=== PATIENT | female | born 1955 | race Caucasian/White ===

== ENCOUNTER → 2017-03-09 | Outpatient (CLI) | payer BC ==
[~2017-03-09] MED LIST: PRLSR20 PO; VIACTIV PO; VITA400C15 PO; [UNRECOGNIZED DRUG - OTHER] PO
[2017-03-09 13:15] LABS: BASO % 0.4 %; BASO ABS # 0.02 K/uL (0-0.2); COMPLETE YES; EOS % 1.6 %; IG% 0.2 %; LYMPH % 37.8 %; LYMPH ABS # 2.07 K/uL (1.2-3.4); MEAN CELL VOLUME 80.7 fL (80-100); MEAN CORPUSCULAR HEMOGLOBIN 26.1 pg (25-34); MEAN CORPUSCULAR HGB CONC 32.3 g/dl (32-36); MEAN PLATELET VOLUME 10.7 fL (7.4-10.4); MONO % 5.7 %; NEUT % 54.3 %; PLATELET COUNT 242 K/uL (130-400); RED BLOOD COUNT 4.83 M/uL (4.2-5.4); WHITE BLOOD COUNT 5.48 K/uL (4.8-10.8)
[2017-03-09 13:53] LABS: CHOLESTEROL/HDL RATIO 3.3; THYROID STIMULATING HORMONE 1.28 uIu/ml (0.300-4.500)
== END | disposition home or self-care (01) ==
LOC: C.LABMFLN 09:21
PROVIDERS: ATTEND Family Medicine
DX: Z12.31 Encounter for screening mammogram for malignant neoplasm of breast (principal); R68.89 Other general symptoms and signs; R23.8 Other skin changes; M85.80 Other specified disorders of bone density and structure, unspecified site; E78.5 Hyperlipidemia, unspecified

== ENCOUNTER 2020-07-18 14:05 | Inpatient (IN) ==
[2020-07-18] MEDS ORDERED: SODIUM CHLORIDE 0.9% 1000ML 1,000 ML IV ONE (14:14)
[2020-07-18] MEDS ORDERED: CEFEPIME 2,000 MG/20 ML VIAL IV STA (14:14)
--- NOTE | 2020-07-18 14:20 | Emergency Department Note ---
Impression & Plan COVID-19, Hypoxia, Pneumonia ED Provider Note NAME: JORDEN ROBERTS AGE: 65 SEX: F : 1955 ARRIVES VIA: Ambulance INFORMANT: Patient, EMS ED PROVIDER(S): Alvarez Jacques DO CHIEF COMPLAINT: Shortness of breath HPI: Patient is a 65-year-old female who presents the ER for shortness of breath. Symptoms started this past Tuesday. They have been gradually getting worse. She admits to cough, shortness of breath, runny nose and a sore throat from the coughing. Denies any belly pain, nausea, vomiting or diarrhea. No dysuria, urgency or frequency. She admits to fevers. She does get chemotherapy which she takes orally for her multiple myeloma. Fevers have been as high as 102. No other exacerbating or remitting factors. ROS: See above HPI for pertinent positives & negatives. A total of 10 systems reviewed and were otherwise negative. PAST MEDICAL HISTORY:See Below PAST SURGICAL HISTORY:See Below FAMILY HISTORY:See Below SOCIAL HISTORY:See Below HOME MEDICATIONS:See Below ALLERGIES:See Below VITALS:See Below PHYSICAL EXAMINATION: GENERAL: Sitting up in bed, alert, ill-appearing, moderate distress EYE EXAM: normal conjunctiva. OROPHARYNX: Dry mucous membranes NECK: supple, no nuchal rigidity, no adenopathy, non-tender LUNGS: Diminished bilaterally. Normal chest wall mechanics HEART: no murmurs, S1 normal and S2 normal ABDOMEN: abdomen soft, non-tender, normo-active bowel sounds, no masses, no rebound or guarding. UPPER EXTREMITIES: upper extremities are grossly normal. LOWER EXTREMITIES: No pitting edema. Calves are equal bilateral NEURO EXAM: Normal sensorium, cranial nerves II-XII grossly intact, normal speech, no gross weakness of arms, no gross weakness of legs. MEDICAL DECISION MAKING: Patient is a 65-year-old female who presents the ER for shortness of breath and a cough. Symptoms started this past Tuesday. has the same symptoms. IV was established blood work was obtained. She was brought in by EMS and found to be hypoxic. She was on nonrebreather. She switched to an oxygen mask and then moved to high flow as she became hypoxic on the oxy mask. Her work of breathing improved significantly while on high flow. She also has a history of multiple myeloma and is immune compromised and was given IV antibiotics. Labs show no significant leukocytosis or anemia. INR was unremarkable. VBG with a pH of 7.43. BMP with mild hypokalemia. LFTs bilirubin was unremarkable. Troponin detectable but not positive. Pro-Blaise was low. Covid was positive. Chest x-ray with multifocal pneumonia. Given broad-spectrum IV antibiotics as well as IV Decadron discussed with hospitalist admitted for further work-up. Triage Nursing notes reviewed. Prior medical records reviewed Vital Signs: reviewed and remarkable for toxic and tachycardic Differential diagnosis: Differential diagnosis includes etiologies such as sepsis, UTI, pneumonia, metabolic, electrolyte abnormalities, cardiac sources, intracerebral event, toxicologic, neurological, as well as others were entertained. ER treatment provided: See below Diagnostics interpreted by me: ECG: Sinus rhythm rate of 101 Left axis No PVCs T wave inversion V1 through V4 QTC 456 Cardiac Monitoring: An order was placed for continuous cardiac monitoring. The monitor shows a rate of 102 with sinus rhythm. Laboratory studies: As stated above and show below. Imaging studies: Portable AP upright 1 view of the chest shows multifocal pneumonia Consultation(s): Discussed with the hospitalist for further evaluation ED COURSE: Procedures: none Critical Care: I have personally spent 40 minutes of critical care time in the direct management of this patient. This includes bedside care, interpretation of diagnostic studies, and testing, discussion with consultants, patient, and family members, and other required patient management activities. This 40 minutes is in excess of all separately billable procedures. Past Med/Surg History Medical History Allergic rhinitis Annual physical exam Chronic GERD Multinodular goiter Osteoarthritis of left knee Osteopenia Paraproteinemia Surgical History H/O arthroscopic knee surgery History of delivery History of laparoscopy History of tonsillectomy History of tubal ligation Family History Father Arthritis Heart disease Hypotension Vertigo Mother Heart disease Hyperlipidemia Hypertension Denies family history of Ovarian cancer Prostate cancer Breast cancer Colorectal cancer Social History Smoking Status: Never smoker Hx Alcohol Use: Yes Hx Substance Use: No Feels Safe at Home: Yes Allergies Allergies Allergy/AdvReac Type Severity Reaction Status Date / Time diazepam [From Valium] AdvReac Severe Nausea Unverified 07/18/20 15:06 tramadol AdvReac Severe Nausea Unverified 07/18/20 15:06 acetaminophen AdvReac Unknown NAUSEA AND Verified 07/18/20 15:06 VOMITING codeine AdvReac Unknown NAUSEA AND Verified 07/18/20 15:06 VOMITING propoxyphene AdvReac Unknown NAUSEA AND Verified 07/18/20 15:06 VOMITING Sulfa (Sulfonamide AdvReac Unknown NAUSEA AND Verified 07/18/20 15:06 Antibiotics) VOMITING Home Meds Home Medications Medication Instructions Recorded Confirmed fexofenadine 180 mg tablet 180 mg PO QAM PRN tab 05/04/19 07/18/20 fish oil-dha-epa 1,200 mg-144 1 cap PO QAM cap 05/04/19 07/18/20 mg-216 mg capsule fluticasone propionate 50 2 sprays INTRANASAL DAILY #1 gm 05/04/19 07/18/20 mcg/actuation nasal spray,suspension glucosamine HCl 1,500 mg tablet 3,000 mg PO QPM tab 05/04/19 07/18/20 naproxen sodium 220 mg capsule 220 mg PO UD PRN cap 05/04/19 07/18/20 omeprazole magnesium 20 mg 20 mg PO QAM tab 05/04/19 07/18/20 tablet,delayed release red yeast rice 600 mg tablet 600 mg PO BID tab 05/04/19 07/18/20 calcium carbonate-vitamin D3 1 tab PO QAM 07/18/20 07/18/20 [Calcium + D] cholecalciferol (vitamin D3) 1,000 units PO QAM 07/18/20 07/18/20 [Vitamin D3] lenalidomide [Revlimid] 25 mg PO QDL 07/18/20 07/18/20 Previous Rx's Medication Instructions Recorded epinephrine 0.3 mg/0.3 mL See Rx Instructions .ROUTE 01/17/20 injection, auto-injector .COMPLEX #2 ea Results & Data (ED) Vital Signs Vital Signs - 24 hr 07/18/20 14:14 07/18/20 14:15 07/18/20 14:19 Temperature 37.7 C H Temperature Source Oral Pulse Rate 104 H Pulse Rate [Right Finger] Pulse Rate from SpO2 Sensor Respiratory Rate 24 Respiratory Effort / Characteristics Spontaneous Respiratory Depth Shallow Respiratory Pattern Rapid/Shallow Blood Pressure 143/80 H Blood Pressure [Left Arm] Blood Pressure Mean 101 Blood Pressure Mean [Left Arm] Blood Pressure Position Sitting Blood Pressure Position [Left Arm] Pulse Oximetry 76 L 76 L 76 L Oxygen Delivery Method Room Air Room Air Room Air Oxygen Flow Rate Fraction of Inspired Oxygen Sepsis Recent Fever Within 48 Hours Yes Sepsis New/Unexplained Change in Mental Status N/A Sepsis Action Taken by Nursing Physician Notified 07/18/20 14:29 07/18/20 14:44 07/18/20 14:47 Temperature Temperature Source Pulse Rate 101 H 102 H Pulse Rate [Right Finger] 105 H Pulse Rate from SpO2 Sensor 102 H 102 H Respiratory Rate 24 34 H 34 H Respiratory Effort / Characteristics Spontaneous Respiratory Depth Shallow Respiratory Pattern Rapid/Shallow Blood Pressure 124/80 Blood Pressure [Left Arm] 124/80 Blood Pressure Mean 102 Blood Pressure Mean [Left Arm] 94 Blood Pressure Position Blood Pressure Position [Left Arm] Sitting Pulse Oximetry 13 L 88 L 92 Oxygen Delivery Method Oxymask Oxygen Flow Rate 15 Fraction of Inspired Oxygen Sepsis Recent Fever Within 48 Hours Sepsis New/Unexplained Change in Mental Status Sepsis Action Taken by Nursing 07/18/20 15:00 07/18/20 15:01 07/18/20 15:15 Temperature Temperature Source Pulse Rate 106 H 102 H Pulse Rate [Right Finger] Pulse Rate from SpO2 Sensor 104 H 103 H Respiratory Rate 34 H 34 H Respiratory Effort / Characteristics Labored Short of Breath Respiratory Depth Respiratory Pattern Blood Pressure 111/74 Blood Pressure [Left Arm] Blood Pressure Mean 85 Blood Pressure Mean [Left Arm] Blood Pressure Position Blood Pressure Position [Left Arm] Pulse Oximetry 89 L 90 87 L Oxygen Delivery Method Oxymask Oxygen Flow Rate 15 15 Fraction of Inspired Oxygen Sepsis Recent Fever Within 48 Hours Sepsis New/Unexplained Change in Mental Status Sepsis Action Taken by Nursing 07/18/20 15:30 07/18/20 15:31 07/18/20 15:39 Temperature Temperature Source Pulse Rate 102 H 100 H Pulse Rate [Right Finger] 97 H Pulse Rate from SpO2 Sensor 102 H 99 H Respiratory Rate 36 H 28 H 28 H Respiratory Effort / Characteristics Spontaneous Short of Breath Respiratory Depth Respiratory Pattern Blood Pressure 125/80 Blood Pressure [Left Arm] Blood Pressure Mean 90 Blood Pressure Mean [Left Arm] Blood Pressure Position Blood Pressure Position [Left Arm] Pulse Oximetry 91 91 93 Oxygen Delivery Method High Flow Nasal Cannula Oxygen Flow Rate 30 Fraction of Inspired Oxygen 80 Sepsis Recent Fever Within 48 Hours Sepsis New/Unexplained Change in Mental Status Sepsis Action Taken by Nursing 07/18/20 16:00 07/18/20 16:01 07/18/20 16:30 Temperature Temperature Source Pulse Rate 98 H 99 H 99 H Pulse Rate [Right Finger] Pulse Rate from SpO2 Sensor 100 H 100 H 100 H Respiratory Rate 31 H 34 H 31 H Respiratory Effort / Characteristics Non-Labored Respiratory Depth Respiratory Pattern Blood Pressure 138/80 121/81 Blood Pressure [Left Arm] Blood Pressure Mean 101 103 Blood Pressure Mean [Left Arm] Blood Pressure Position Blood Pressure Position [Left Arm] Pulse Oximetry 93 93 93 Oxygen Delivery Method Oxygen Flow Rate Fraction of Inspired Oxygen Sepsis Recent Fever Within 48 Hours Sepsis New/Unexplained Change in Mental Status Sepsis Action Taken by Nursing 07/18/20 16:31 07/18/20 17:00 07/18/20 17:01 Temperature Temperature Source Pulse Rate 99 H 98 H 98 H Pulse Rate [Right Finger] Pulse Rate from SpO2 Sensor 99 H 97 H 97 H Respiratory Rate 31 H 31 H 29 H Respiratory Effort / Characteristics Respiratory Depth Respiratory Pattern Blood Pressure 127/74 Blood Pressure [Left Arm] Blood Pressure Mean 82 Blood Pressure Mean [Left Arm] Blood Pressure Position Blood Pressure Position [Left Arm] Pulse Oximetry 93 90 91 Oxygen Delivery Method High Flow Nasal Cannula Oxygen Flow Rate Fraction of Inspired Oxygen Sepsis Recent Fever Within 48 Hours Sepsis New/Unexplained Change in Mental Status Sepsis Action Taken by Nursing 07/18/20 17:30 07/18/20 17:31 07/18/20 17:44 Temperature Temperature Source Pulse Rate 95 H 95 H Pulse Rate [Right Finger] 102 H Pulse Rate from SpO2 Sensor 91 H 94 H Respiratory Rate 30 H 28 H 30 H Respiratory Effort / Characteristics Spontaneous Short of Breath Respiratory Depth Respiratory Pattern Blood Pressure 119/73 Blood Pressure [Left Arm] Blood Pressure Mean 100 Blood Pressure Mean [Left Arm] Blood Pressure Position Blood Pressure Position [Left Arm] Pulse Oximetry 90 91 92 Oxygen Delivery Method High Flow Nasal Cannula Oxygen Flow Rate 35 Fraction of Inspired Oxygen 90 Sepsis Recent Fever Within 48 Hours Sepsis New/Unexplained Change in Mental Status Sepsis Action Taken by Nursing 07/18/20 18:00 07/18/20 18:01 07/18/20 18:30 Temperature Temperature Source Pulse Rate 84 87 94 H Pulse Rate [Right Finger] Pulse Rate from SpO2 Sensor 85 89 96 H Respiratory Rate 41 H 39 H 32 H Respiratory Effort / Characteristics Respiratory Depth Respiratory Pattern Blood Pressure 110/71 128/77 Blood Pressure [Left Arm] Blood Pressure Mean 92 91 Blood Pressure Mean [Left Arm] Blood Pressure Position Blood Pressure Position [Left Arm] Pulse Oximetry 95 92 92 Oxygen Delivery Method Oxygen Flow Rate Fraction of Inspired Oxygen Sepsis Recent Fever Within 48 Hours Sepsis New/Unexplained Change in Mental Status Sepsis Action Taken by Nursing 07/18/20 18:31 07/18/20 19:00 07/18/20 19:01 Temperature Temperature Source Pulse Rate 97 H 94 H 95 H Pulse Rate [Right Finger] Pulse Rate from SpO2 Sensor 95 H 93 H 96 H Respiratory Rate 32 H 31 H 32 H Respiratory Effort / Characteristics Respiratory Depth Respiratory Pattern Blood Pressure 123/78 Blood Pressure [Left Arm] Blood Pressure Mean 90 Blood Pressure Mean [Left Arm] Blood Pressure Position Blood Pressure Position [Left Arm] Pulse Oximetry 92 91 90 Oxygen Delivery Method Oxygen Flow Rate Fraction of Inspired Oxygen Sepsis Recent Fever Within 48 Hours Sepsis New/Unexplained Change in Mental Status Sepsis Action Taken by Nursing 07/18/20 19:30 07/18/20 19:31 Temperature Temperature Source Pulse Rate 91 H 90 Pulse Rate [Right Finger] Pulse Rate from SpO2 Sensor 93 H 84 Respiratory Rate 29 H 35 H Respiratory Effort / Characteristics Respiratory Depth Respiratory Pattern Blood Pressure 131/74 Blood Pressure [Left Arm] Blood Pressure Mean 91 Blood Pressure Mean [Left Arm] Blood Pressure Position Blood Pressure Position [Left Arm] Pulse Oximetry 91 91 Oxygen Delivery Method Oxygen Flow Rate Fraction of Inspired Oxygen Sepsis Recent Fever Within 48 Hours Sepsis New/Unexplained Change in Mental Status Sepsis Action Taken by Nursing Laboratory Data Result diagrams: 07/18/20 14:45 07/18/20 14:45 Lab Results 07/18/20 07/18/20 07/18/20 Range/Units 14:45 14:45 14:45 WBC 5.51 (4.8-10.8) K/uL RBC 4.28 (4.2-5.4) M/uL Hgb 12.1 (12.0-16.0) g/dL Hct 36.5 L (37-47) % MCV 85.3 (80-100) fL MCH 28.3 (25-34) pg MCHC 33.2 (32-36) g/dL RDW Std Deviation 48.2 H (36.4-46.3) fL RDW Coeff of Fawn 15.5 H (11.5-14.5) % Plt Count 192 (130-400) K/uL MPV 12.0 H (7.4-10.4) fL Immature Gran % (Auto) 0.4 % Neut % (Auto) 90.7 % Lymph % (Auto) 6.0 % [place] % (Auto) 2.5 % Eos % (Auto) 0.0 % Baso % (Auto) 0.4 % Neut # (Auto) 5.00 (1.4-6.5) K/uL Lymph # (Auto) 0.33 L (1.2-3.4) K/uL [place] # (Auto) 0.14 (0.11-0.59) K/uL Eos # (Auto) 0.00 (0-0.5) K/uL Baso # (Auto) 0.02 (0-0.2) K/uL Immature Gran # (Auto) 0.02 (0.00-0.02) K/uL PT 12.2 H (9.0-12.0) Seconds INR 1.2 H (0.9-1.1) APTT 27.6 (21.0-31.0) Seconds PTT Ratio 1.0 ABG pH (7.35-7.45) ABG pCO2 (35-46) mmHg ABG pO2 (80-95) mmHg ABG HCO3 (19-24) mmol/L ABG O2 Saturation (90-95) % ABG Base Excess (-9-1.8) mEq/L Keo Test (Pos) VBG pH (7.36-7.41) VBG pCO2 (38-50) mmHg VBG pO2 mmHg VBG HCO3 mmol/L VBG O2 Saturation % VBG Base Excess mEq/L Barometric Pressure mm/Hg Oxygen Given Sodium 139 (136-145) mmol/L Potassium 3.2 L (3.5-5.1) mmol/L Chloride 105 (98-107) mmol/L Carbon Dioxide 26 (21-32) mmol/L Anion Gap 8.0 (3-11) BUN 15 (7-18) mg/dl Creatinine 0.88 (0.6-1.2) mg/dl Est Cr Clr Drug Dosing 57.6 ml/min Est GFR ( Amer) 79.9 Est GFR (Non-Af Amer) 68.9 BUN/Creatinine Ratio 17.0 (10-20) Glucose 115 H (70-99) mg/dl Lactate (0.4-2.0) mmol/L Calcium 8.7 (8.5-10.1) mg/dl Magnesium 1.9 (1.8-2.4) mg/dl Total Bilirubin 0.6 (0.2-1) mg/dl AST 17 (15-37) U/L ALT 26 (12-78) U/L Alkaline Phosphatase 96 (45-117) U/L Troponin I 0.036 (0-0.045) ng/ml Total Protein 7.1 (6.4-8.2) gm/dl Albumin 2.5 L (3.4-5.0) gm/dl Globulin 4.6 H (2.5-4.0) gm/dl Albumin/Globulin Ratio 0.5 L (0.9-2) Procalcitonin (0-0.5) ng/ml COVID-19 Eval Order SARS-CoV-2, RNA, NAAT (NEGATIVE) 07/18/20 07/18/20 07/18/20 Range/Units 14:45 14:45 14:45 WBC (4.8-10.8) K/uL RBC (4.2-5.4) M/uL Hgb (12.0-16.0) g/dL Hct (37-47) % MCV (80-100) fL MCH (25-34) pg MCHC (32-36) g/dL RDW Std Deviation (36.4-46.3) fL RDW Coeff of Fawn (11.5-14.5) % Plt Count (130-400) K/uL MPV (7.4-10.4) fL Immature Gran % (Auto) % Neut % (Auto) % Lymph % (Auto) % [place] % (Auto) % Eos % (Auto) % Baso % (Auto) % Neut # (Auto) (1.4-6.5) K/uL Lymph # (Auto) (1.2-3.4) K/uL [place] # (Auto) (0.11-0.59) K/uL Eos # (Auto) (0-0.5) K/uL Baso # (Auto) (0-0.2) K/uL Immature Gran # (Auto) (0.00-0.02) K/uL PT (9.0-12.0) Seconds INR (0.9-1.1) APTT (21.0-31.0) Seconds PTT Ratio ABG pH (7.35-7.45) ABG pCO2 (35-46) mmHg ABG pO2 (80-95) mmHg ABG HCO3 (19-24) mmol/L ABG O2 Saturation (90-95) % ABG Base Excess (-9-1.8) mEq/L Keo Test (Pos) VBG pH (7.36-7.41) VBG pCO2 (38-50) mmHg VBG pO2 mmHg VBG HCO3 mmol/L VBG O2 Saturation % VBG Base Excess mEq/L Barometric Pressure mm/Hg Oxygen Given Sodium (136-145) mmol/L Potassium (3.5-5.1) mmol/L Chloride (98-107) mmol/L Carbon Dioxide (21-32) mmol/L Anion Gap (3-11) BUN (7-18) mg/dl Creatinine (0.6-1.2) mg/dl Est Cr Clr Drug Dosing ml/min Est GFR ( Amer) Est GFR (Non-Af Amer) BUN/Creatinine Ratio (10-20) Glucose (70-99) mg/dl Lactate 2.0 (0.4-2.0) mmol/L Calcium (8.5-10.1) mg/dl Magnesium (1.8-2.4) mg/dl Total Bilirubin (0.2-1) mg/dl AST (15-37) U/L ALT (12-78) U/L Alkaline Phosphatase (45-117) U/L Troponin I (0-0.045) ng/ml Total Protein (6.4-8.2) gm/dl Albumin (3.4-5.0) gm/dl Globulin (2.5-4.0) gm/dl Albumin/Globulin Ratio (0.9-2) Procalcitonin 0.34 (0-0.5) ng/ml COVID-19 Eval [email or web address] SARS-CoV-2, RNA, NAAT (NEGATIVE) 07/18/20 07/18/20 07/18/20 Range/Units 14:45 15:30 19:19 WBC (4.8-10.8) K/uL RBC (4.2-5.4) M/uL Hgb (12.0-16.0) g/dL Hct (37-47) % MCV (80-100) fL MCH (25-34) pg MCHC (32-36) g/dL RDW Std Deviation (36.4-46.3) fL RDW Coeff of Fawn (11.5-14.5) % Plt Count (130-400) K/uL MPV (7.4-10.4) fL Immature Gran % (Auto) % Neut % (Auto) % Lymph % (Auto) % [place] % (Auto) % Eos % (Auto) % Baso % (Auto) % Neut # (Auto) (1.4-6.5) K/uL Lymph # (Auto) (1.2-3.4) K/uL [place] # (Auto) (0.11-0.59) K/uL Eos # (Auto) (0-0.5) K/uL Baso # (Auto) (0-0.2) K/uL Immature Gran # (Auto) (0.00-0.02) K/uL PT (9.0-12.0) Seconds INR (0.9-1.1) APTT (21.0-31.0) Seconds PTT Ratio ABG pH 7.46 H (7.35-7.45) ABG pCO2 33 L (35-46) mmHg ABG pO2 63 L (80-95) mmHg ABG HCO3 23 (19-24) mmol/L ABG O2 Saturation 91.9 (90-95) % ABG Base Excess -0.1 (-9-1.8) mEq/L Keo Test Pos (Pos) VBG pH 7.43 H (7.36-7.41) VBG pCO2 39 (38-50) mmHg VBG pO2 28 mmHg VBG HCO3 25 mmol/L VBG O2 Saturation < 60.0 % VBG Base Excess 0.9 mEq/L Barometric Pressure 742.9 744.0 mm/Hg Oxygen Given 35 Sodium (136-145) mmol/L Potassium (3.5-5.1) mmol/L Chloride (98-107) mmol/L Carbon Dioxide (21-32) mmol/L Anion Gap (3-11) BUN (7-18) mg/dl Creatinine (0.6-1.2) mg/dl Est Cr Clr Drug Dosing ml/min Est GFR ( Amer) Est GFR (Non-Af Amer) BUN/Creatinine Ratio (10-20) Glucose (70-99) mg/dl Lactate (0.4-2.0) mmol/L Calcium (8.5-10.1) mg/dl Magnesium (1.8-2.4) mg/dl Total Bilirubin (0.2-1) mg/dl AST (15-37) U/L ALT (12-78) U/L Alkaline Phosphatase (45-117) U/L Troponin I (0-0.045) ng/ml Total Protein (6.4-8.2) gm/dl Albumin (3.4-5.0) gm/dl Globulin (2.5-4.0) gm/dl Albumin/Globulin Ratio (0.9-2) Procalcitonin (0-0.5) ng/ml COVID-19 Eval Order SARS-CoV-2, RNA, NAAT POSITIVE A* (NEGATIVE) Administered Medications Discontinued Medications Dexamethasone (Dexamethasone Sod Inj 10 Mg/Ml Vial) 6 mg IV NOW ONE Stop: 07/18/20 14:24 Last Admin: 07/18/20 15:10 Dose: 6 mg Documented by: [id number] Sodium Chloride (Nss 1000ml) 1,000 mls @ 999 mls/hr IV .Q1H1M ONE Stop: 07/18/20 15:14 Last Infusion: 07/18/20 16:16 Dose: 0 mls/hr Documented by: [id number] Admin: 07/18/20 15:10 Dose: 999 mls/hr Documented by: [id number] Cefepime HCl (Maxipime) 2,000 mg in 20 mls @ 5 mls/min IV NOW STA; Protocol Stop: 07/18/20 14:17 Last Admin: 07/18/20 16:08 Dose: 5 mls/min Documented by: [id number] Remdesivir 200 mg/ Sodium (Chloride) 250 mls @ 125 mls/hr IV ONE ONE; Protocol Stop: 07/18/20 19:59 Last Admin: 07/18/20 18:31 Dose: 125 mls/hr Documented by: [id number] Ioversol (Optiray 320 125ml) 118 ml IV ONCE ONE Stop: 07/18/20 20:05 Last Admin: 07/18/20 20:04 Dose: 118 ml Documented by: [id number] Discharge Plan Visit Data Chief Complaint: Shortness of Breath/Dyspnea ED Provider: Alvarez Jacques Discharge Problem: COVID-19, Hypoxia, Pneumonia Discharge Instructions Interventions: ED Discharge Assessment Last Done: 07/18/20 19:05 Forms Stand Alone Forms: [facility] [employer] Prescriptions Prescriptions: No Action epinephrine 0.3 mg/0.3 mL auto-injector See Rx Instructions .ROUTE .COMPLEX Qty: 2 RF: 0 naproxen sodium 220 mg capsule 220 mg PO UD PRN (Reason: Pain) RF: 0 red yeast rice 600 mg tablet 600 mg PO BID RF: 0 glucosamine HCl 1,500 mg tablet 3,000 mg PO QPM RF: 0 Prilosec OTC 20 mg tablet,delayed release (DR/EC) 20 mg PO QAM RF: 0 fluticasone propionate 50 mcg/actuation spray,suspension 2 sprays intranasal DAILY Qty: 1 RF: 0 fexofenadine 180 mg tablet 180 mg PO QAM PRN (Reason: allergy symptoms) RF: 0 fish oil-dha-epa 1,200-144-216 mg capsule 1 cap PO QAM RF: 0 calcium carbonate-vitamin D3 [Calcium + D] 600 mg(1,500mg) -200 unit Tablet 1 tab PO QAM RF: 0 Revlimid 25 mg capsule 25 mg PO QDL RF: 0 cholecalciferol (vitamin D3) [Vitamin D3] 25 mcg (1,000 unit) capsule 1,000 units PO QAM RF: 0 Referrals Referrals: Richie Roberts MD [Primary Care Provider] - Discharge Problem: Pneumonia Qualifiers: Pneumonia type: due to unspecified organism Laterality: unspecified laterality Lung location: unspecified part of lung Qualified Code(s): J18.9 - Pneumonia, unspecified organism
[2020-07-18] MEDS ORDERED: DEXAMETHASONE SOD INJ 10 MG/ML VIAL IV ONE (14:23)
[2020-07-18 15:05] LABS: Basophils # (auto) 0.02 K/uL (0-0.2); Basophils % (auto) 0.4 %; Hematocrit (blood only) 36.5 % (37-47); Hemoglobin 12.1 g/dL (12.0-16.0); Immature Granulocytes # (auto) 0.02 K/uL (0.00-0.02); Immature Granulocytes % (auto) 0.4 %; Lymphocytes # (auto) 0.33 K/uL (1.2-3.4); Mean Corpuscular Hemoglobin 28.3 pg (25-34); Mean Corpuscular Hgb Conc 33.2 g/dL (32-36); Mean Corpuscular Volume 85.3 fL (80-100); Monocytes # (auto) 0.14 K/uL (0.11-0.59); Monocytes % (auto) 2.5 %; Neutrophils % (auto) 90.7 %; Platelet Count 192 K/uL (130-400); RDW Coefficient of Variation 15.5 % (11.5-14.5); RDW Standard Deviation 48.2 fL (36.4-46.3); Red Blood Count 4.28 M/uL (4.2-5.4); White Blood Count 5.51 K/uL (4.8-10.8)
[2020-07-18 15:17] LABS: INR 1.2 (0.9-1.1); Partial Thromboplastin Time 27.6 Seconds (21.0-31.0); Prothrombin Time 12.2 Seconds (9.0-12.0)
[2020-07-18 15:22] LABS: Albumin Level 2.5 gm/dl (3.4-5.0); Calcium 8.7 mg/dl (8.5-10.1); Creatinine Clr Calc Pharmacy 57.6 ml/min; Est GFR (African American) 79.9; Est GFR (Non-African American) 68.9; Magnesium 1.9 mg/dl (1.8-2.4); Potassium 3.2 mmol/L (3.5-5.1)
[2020-07-18 15:27] LABS: Albumin Globulin Ratio 0.5 (0.9-2); Bilirubin,Total 0.6 mg/dl (0.2-1); Globulin 4.6 gm/dl (2.5-4.0); Total Protein 7.1 gm/dl (6.4-8.2); Troponin I 0.036 ng/ml (0-0.045)
[2020-07-18 15:49] LABS: Base Excess VBG 0.9 mEq/L; HCO3 VBG 25 mmol/L; PCO2 VBG 39 mmHg (38-50); PO2 VBG 28 mmHg; pH VBG 7.43 (7.36-7.41)
[2020-07-18 15:53] LABS: Oxygen Saturation VBG < 60.0 %
--- NOTE | 2020-07-18 16:10 | XRay Report ---
XR chest 1V portable CLINICAL HISTORY: SEPSIS COMPARISON STUDY: Chest x-ray dated 08/12/2019 FINDINGS: The heart is mildly enlarged. There are moderately extensive multifocal bilateral pulmonary airspace opacities consistent with a multifocal pneumonia. No large pleural effusions are visualized .[ IMPRESSION: 1. Bilateral pulmonary airspace opacities, consistent with a multifocal pneumonia. ACT 112: Negative or not required by law. Electronically signed by: Gary Almeida M.D. 07/18/2020 4:09 PM
--- NOTE | 2020-07-18 17:50 | History & Physical Report ---
Date of Service July 18, 2020 Assessment & Plan (1) COVID-19: Dexamethasone 6mg IV daily for 10 days 5 days Remdesivir Will defer convalescent plasma as on day 6 of illness and best evidence of effectiveness within the first 4 days of illness Isolation precautions with airborne and droplet (2) Acute respiratory failure with hypoxia: Tachypneic and hypoxic despite high flow nasal cannula. Start on BiPAP. Consult pulmonology for ongoing advice regarding this as high risk of intubation during this illness. CTA to rule out PE (3) Chronic GERD: Switch omeprazole for pantoprazole as per hospital formulary. (4) Multiple myeloma: Discussed with Dr Conner. Will initially hold Revlimid per his advice and place consult. (5) DVT prophylaxis: Lovenox 40mg SQ BID Admission and Anticipated Discharge Date Admission Date: 07/18/2020 History of Present Illness Chief Complaint: Shortness of breath, hypoxia. Primary Care Provider: Richie Roberts MD Promise Jimenez is a 65-year-old female who presents to the ER with shortness of breath, nasal congestion, sinus pressure (now improving), sore throat, nonproductive cough, poor appetite, fever and fatigue. Symptoms started 6 days ago and progressively worse since then. She was tested for SARS-CoV-2 3 days ago although this is yet to be resulted. She denies any diarrhea, nausea, vomiting, abdominal pain, headache. She is currently immunocompromised with treatment for smoldering multiple myeloma with Velcade, dexamethasone and Revlimid. Discussed with her over the phone. He reports having COPD and has a pulse ox at home. He had been trying to encourage his to come to the ER for some time but she has been quite stoic. However today noted her pulse ox at 45% therefore just called for an ambulance. In the ER SARS-COV2 PCR was positive and CXR concerning for bilateral pulmonary airspace opacities consistent with multifocal pneumonia. She was started on high flow oxygen with FiO2 80% maintaining O2 sats around 90%. Given NSS 1L bolus, cefepime to cover for bacterial pneumonia and Dexamethasone as treatment for COVID-19 pneumonia. She was referred to medicine for admission and ongoing management of COVID-19 pneumonia and acute hypoxic respiratory failure. Allergies Allergy/AdvReac Type Severity Reaction Status Date / Time diazepam [From Valium] AdvReac Severe Nausea Unverified 07/18/20 15:06 tramadol AdvReac Severe Nausea Unverified 07/18/20 15:06 codeine AdvReac Unknown NAUSEA AND Verified 07/18/20 15:06 VOMITING propoxyphene AdvReac Unknown NAUSEA AND Verified 07/18/20 15:06 VOMITING Sulfa (Sulfonamide AdvReac Unknown NAUSEA AND Verified 07/18/20 15:06 Antibiotics) VOMITING Home Medications Medication Instructions Recorded Confirmed Type fexofenadine 180 mg tablet 180 mg PO QAM PRN tab 05/04/19 07/18/20 History fish oil-dha-epa 1,200 mg-144 1 cap PO QAM cap 05/04/19 07/18/20 History mg-216 mg capsule fluticasone propionate 50 2 sprays INTRANASAL DAILY #1 gm 05/04/19 07/18/20 History mcg/actuation nasal spray,suspension glucosamine HCl 1,500 mg tablet 3,000 mg PO QPM tab 05/04/19 07/18/20 History naproxen sodium 220 mg capsule 220 mg PO UD PRN cap 05/04/19 07/18/20 History omeprazole magnesium 20 mg 20 mg PO QAM tab 05/04/19 07/18/20 History tablet,delayed release red yeast rice 600 mg tablet 600 mg PO BID tab 05/04/19 07/18/20 History epinephrine 0.3 mg/0.3 mL See Rx Instructions .ROUTE 01/17/20 07/18/20 Rx injection, auto-injector .COMPLEX #2 ea calcium carbonate-vitamin D3 1 tab PO QAM 07/18/20 07/18/20 History [Calcium + D] cholecalciferol (vitamin D3) 1,000 units PO QAM 07/18/20 07/18/20 History [Vitamin D3] lenalidomide [Revlimid] 25 mg PO QDL 07/18/20 07/18/20 History Past Med/Surg History Medical History Allergic rhinitis Annual physical exam Chronic GERD Multinodular goiter Osteoarthritis of left knee Osteopenia Paraproteinemia Surgical History H/O arthroscopic knee surgery History of delivery History of laparoscopy History of tonsillectomy History of tubal ligation Family History Father Arthritis Heart disease Hypotension Vertigo Mother Heart disease Hyperlipidemia Hypertension Denies family history of Ovarian cancer Prostate cancer Breast cancer Colorectal cancer Social History Smoking Status: Never smoker Hx Alcohol Use: Yes Alcohol type: beer and wine Hx Substance Use: No Preferred Language: Yakut Communication Ability: Effective Director Of Casework Department Required: No Beliefs That Will Affect Care: None Current Living Situation: Spouse Other Information That Helps Us Care for You: No Feels Safe at Home: Yes Safety Concerns: Feels Safe At This Time Assistive Devices: None Review of Systems Review of Systems: All systems reviewed & are unremarkable except as noted in HPI & below Constitutional: + fever, + body aches, + fatigue and + weakness Respiratory: + cough (Nonproductive) and + dyspnea Cardiovascular: no chest pain Physical Exam Constitutional: well developed, well nourished, + acute distress (Respiratory) and + obese Eyes: + anicteric sclerae; normal pupil size ENMT: external ear and nose normal, oropharynx normal Neck: normal visual inspection and trachea midline Respiratory: + respiratory distress, + labored breathing, + retractions, + uses accessory muscles and + cough; + not able to speak in complete sentence, expiratory phase not prolonged and no audible wheezes Auscultation: + diminished lung sounds (Bibasal); no crackles, no rhonchi and no wheezes Cardiovascular: Rate/Rhythm: regular rhythm and + tachycardic (Occasional skipped beats) Heart Sounds: no murmur Vessels: no JVD Extremities: + abnormal capillary refill (6-7 seconds in peripheries), no calf tenderness and no pedal edema Gastrointestinal (Abdomen): normal bowel sounds, soft, nontender, no hepatosplenomegaly Musculoskeletal: no cyanosis or clubbing, extremities motor strength 5/5 Skin: no rashes, warm and dry Neurologic: moves all extremities and awake; no focal motor deficits and not confused Motor/Sensory: no tremor and no pronator drift Cranial Nerves: normal facial strength Psychiatric: A+Ox3, euthymic affect Genitourinary: no CVA tenderness Results & Data Results & Data ([facility] [place]) Vital Signs (Past 12 Hours) Vital Signs Temp Pulse Pulse Resp BP BP Pulse Ox 12/18/20 17:01 98 H 29 H 91 12/18/20 17:00 98 H 31 H 127/74 90 1218/20 16:31 99 H 31 H 93 1218/20 16:30 99 H 31 H 121/81 93 12/18/20 16:01 99 H 34 H 93 /18/20 16:00 98 H 31 H 138/80 93 /18/20 15:39 97 H 28 H 93 /18/20 15:31 100 H 28 H 91 18/20 15:30 102 H 36 H 125/80 91 12/18/20 15:15 87 L /18/20 15:01 102 H 34 H 90 /18/20 15:00 106 H 34 H 111/74 89 L 18/20 14:47 102 H 34 H 92 18/20 14:44 101 H 34 H 124/80 88 L 18/20 14:29 105 H 24 124/80 13 L 18/20 14:19 76 L 18/20 14:15 37.7 C H 104 H 24 143/80 H 76 L 18/20 14:14 76 L Diagnostic Findings XR chest 1V portable IMPRESSION: 1. Bilateral pulmonary airspace opacities, consistent with a multifocal pneumonia. Medications Administered ER medications given: NSS 1L bolus Cefepime 2 g IV Dexamethasone 6 mg IV ECG Rate (beats per minute): 126 Rhythm: sinus tachycardia Findings: + other (Inferior Q waves); no acute ischemic change Comparison ECG Date: from (August 12, 2009) Change: the following changes noted (Premature supraventricular complexes present) Code Status & VTE Plan Code Status Full VTE Prophylaxis Plan VTE Prophylaxis will be ordered: Yes PG Care Time/CCT Total # of Minutes Spent Total Time Spent with Patient: Total time spent is greater than 50% in coordination of care (as documented) at patient's floor/unit and/or counseling patient: Coding Level of Care Code 39924 Initial Inpt Care Lvl 3 Diagnoses COVID-19 U07.1 Acute respiratory failure with hypoxia J96.01 Chronic GERD K21.9 Multiple myeloma C90.00 DVT prophylaxis Z29.9
[2020-07-18] MEDS ORDERED: REMDESIVIR 200 MG in SODIUM CHLORIDE 0.9% 210 ML IV ONE (18:00)
[2020-07-18] MEDS ORDERED: POTASSIUM CHLORIDE / WTR 10 MEQ/100 ML PLCT IV SCH (18:15)
[2020-07-18 19:31] LABS: Allen Test Pos (Pos); Base Excess ABG -0.1 mEq/L (-9-1.8); HCO3 ABG 23 mmol/L (19-24); Oxygen Saturation ABG 91.9 % (90-95); PCO2 ABG 33 mmHg (35-46); PO2 ABG 63 mmHg (80-95); pH ABG 7.46 (7.35-7.45)
[2020-07-18] MEDS ORDERED: SODIUM CHLORIDE 0.9% 10ML FLUSH IV SCH (20:00)
[2020-07-18] MEDS ORDERED: OPTIRAY 320 125ml IV ONE (20:04)
--- NOTE | 2020-07-18 20:24 | CT Scan Report ---
CT ANGIOGRAM OF THE CHEST CLINICAL HISTORY: Fever, cough, shortness of breath. POSSIBLE PULMONARY EMBOLISM COMPARISON STUDY: Chest x-ray dated 07/18/2020 TECHNIQUE: Following the IV administration of 118 mL of Optiray-320, CT angiogram of the thorax was p erformed from the thoracic inlet to the lung bases utilizing the pulmonary embolus protocol. Images a re reviewed in the axial, sagittal, and coronal planes. IV contrast was administered without complica tion. MIP imaging was performed. A dose lowering technique was utilized adhering to the principles o f ALARA. CT DOSE: 554.02 mGycm FINDINGS: There are minimally enlarged mediastinal lymph nodes, likely reactive. There was no evidence of thoracic aortic dilatation. There were no pulmonary artery filling defects to indicate acute pulmonary embolism. There are trace pleural effusions There are extensive bilateral areas of parenchymal consolidation and groundglass attenuation consiste nt with a multifocal pneumonia. The findings are consistent with although not specific for Covid 19 p neumonia. IMPRESSION: 1. Motion compromised study 2. No evidence of acute pulmonary embolism 3. Extensive bilateral airspace opacities consistent with a multifocal pneumonia 4. Mild adenopathy likely reactive ACT 112: Negative or not required by law. Electronically signed by: Gary Almeida M.D. 07/18/2020 8:23 PM
[2020-07-18] MEDS ORDERED: ONDANSETRON INJ 2 MG/ML 2 ML VIAL IV PRN (20:34)
[2020-07-18] MEDS ORDERED: POLYETHYLENE (MIRALAX) 17 GM PACK PO PRN (20:34)
[2020-07-18] MEDS ORDERED: NON-FORMULARY MEDICATION (Glucosamine Hcl 1,500 mg tablet) PO SCH (21:00)
[2020-07-18] MEDS ORDERED: NAPROXEN 250 MG TAB PO PRN (22:04)
[2020-07-18] MEDS: POTASSIUM CHLORIDE / WTR 10 MEQ/100 ML PLCT IV SCH (23:57)
[2020-07-19] MEDS: ENOXAPARIN INJ 40 MG/0.4 ML SYR SQ SCH ×3 (00:02→20:03)
[2020-07-19] MEDS: POTASSIUM CHLORIDE / WTR 10 MEQ/100 ML PLCT IV SCH (01:36)
--- NOTE | 2020-07-19 06:35 | Electrocardiogram Report ---
Test Reason : Blood Pressure : / mmHG Vent. Rate : 101 BPM Atrial Rate : 101 BPM P-R Int : 126 ms QRS Dur : 082 ms QT Int : 352 ms P-R-T Axes : 024 -06 011 degrees QTc Int : 456 ms Poor data quality, interpretation may be adversely affected Sinus tachycardia with Premature supraventricular complexes Possible Left atrial enlargement Inferior infarct , age undetermined Anterior infarct (cited on or before 12-AUG-2009) Nonspecific T wave abnormality Abnormal ECG When compared with ECG of 12-AUG-2009 09:30, Premature supraventricular complexes are now Present Vent. rate has increased BY 34 BPM Inferior infarct is now Present Confirmed by Edmund Gupta ([id number]) on 07/19/2020 6:35:26 AM Referred By: Confirmed By:Edmund Gupta
[2020-07-19 06:44] LABS: Appearance Urine Clear (Clear); Bacteria Urine Automated Negative (Negative); Bilirubin Urine Negative (Negative); Blood Urine Negative (Negative); Color Urine Dark Yellow; Epithelial Cell Urine Auto >30 /lpf (0-5); Glucose Urine UA Negative (Negative); Ketones Urine 1+ (Negative); Leukocyte Esterase Urine Negative (Negative); Nitrite Urine Negative (Negative); Protein Urine 1+ (Negative); RBC Urine Automated 0-4 /hpf (0-4); Specific Gravity Urine > 1.045 (1.000-1.030); Urobilinogen Urine Negative (Negative)
[2020-07-19 07:47] LABS: Mucus Urine Present (None Prsent)
[2020-07-19 08:34] LABS: Hemoglobin 12.2 g/dL (12.0-16.0); Mean Corpuscular Hemoglobin 28.1 pg (25-34); Mean Corpuscular Volume 85.3 fL (80-100); Mean Platelet Volume 11.9 fL (7.4-10.4); Platelet Count 190 K/uL (130-400); RDW Coefficient of Variation 15.5 % (11.5-14.5); RDW Standard Deviation 48.3 fL (36.4-46.3); Red Blood Count 4.34 M/uL (4.2-5.4)
[2020-07-19 09:09] LABS: Albumin Level 2.2 gm/dl (3.4-5.0); BUN Creatinine Ratio 25.3 (10-20); Calcium 8.6 mg/dl (8.5-10.1); Est GFR (African American) 108.5; Est GFR (Non-African American) 93.6; Potassium 3.4 mmol/L (3.5-5.1)
[2020-07-19 09:12] LABS: Albumin Globulin Ratio 0.5 (0.9-2); Bilirubin,Total 0.6 mg/dl (0.2-1); Globulin 4.6 gm/dl (2.5-4.0); Total Protein 6.8 gm/dl (6.4-8.2)
[2020-07-19 09:20] LABS: Basophils # (auto) 0.03 K/uL (0-0.2); Basophils % (auto) 0.5 %; Echinocytes 1+; Immature Granulocytes # (auto) 0.02 K/uL (0.00-0.02); Immature Granulocytes % (auto) 0.3 %; Lymphocytes # (auto) 0.61 K/uL (1.2-3.4); Monocytes % (auto) 4.9 %; Neutrophils # (auto) 5.14 K/uL (1.4-6.5); Neutrophils % (auto) 84.3 %
[2020-07-19] MEDS: CHOLECALCIFEROL 1,000 UNITS 25 MCG TAB PO SCH (09:22)
[2020-07-19] MEDS: dexAMETHasone 6 MG in SYRINGE 0 ML IV SCH (09:22)
[2020-07-19] MEDS: FEXOFENADINE HCL 180 MG TAB PO SCH (09:22)
[2020-07-19] MEDS: CALCIUM 600MG + VIT D 400 IU TAB PO SCH (09:22)
[2020-07-19] MEDS: PANTOprazole 40 MG TAB PO SCH (09:22)
--- NOTE | 2020-07-19 12:37 | Hospitalist Progress Note ---
Date of Service July 19, 2020 Assessment & Plan (1) COVID-19: Dexamethasone 6mg IV daily for 10 days, day 2 5 days remdesivir, day 2 Will defer convalescent plasma as she presented day 6 of illness Isolation precautions with airborne and droplet continue supportive care with high flow nasal canula, no distress today discussed with Dr. Farooq, appreciate his input (2) Acute respiratory failure with hypoxia: Tachypneic and hypoxic on presentation breathing a little easier on high flow, FiO2 is 65% CT chest negative for PE (3) Chronic GERD: Switch omeprazole for pantoprazole as per hospital formulary. (4) Multiple myeloma: Discussed with Dr Conner. Will initially hold Revlimid per his advice and place consult. (5) DVT prophylaxis: Lovenox 40mg SQ BID (6) Hypokalemia: 3.2 on admission, up slightly at 3.4 replace repeat BMP in AM Admission and Anticipated Discharge Date Admission Date: July 18, 2020 Subjective patient stable on high flow this morning, no distress discussed with Dr. Farooq, he recommended to continue current plan, hope that she does not get worse she is eating fairly well, encouraged her to eat what she can, need to maintain her strength she denies fever/chills, sweats, cough, nausea/vomiting reviewed chart reviewed labs Review of Systems Review of Systems: All systems reviewed & are unremarkable except as noted in Subjective Constitutional: no fever, no chills and no sweats Respiratory: + dyspnea and + dyspnea on exertion; no cough Physical Exam Constitutional: WD/WN, vitals as above no acute distress Neck: trachea midline, no thyromegaly Respiratory: normal respiratory effort and + tachypneic; no respiratory distress, no labored breathing and does not use accessory muscles Cardiovascular: RRR, no murmur, no edema Gastrointestinal (Abdomen): normal bowel sounds, soft, nontender, no hepatosplenomegaly Musculoskeletal: no cyanosis or clubbing, extremities motor strength 5/5 Skin: no rashes, warm and dry Neurologic: patellar DTR's 2+ bilat, sensation intact and PERRL, EOMI, accommodation nl, no face palsy, no dysarthria Psychiatric: A+Ox3, euthymic affect Lymphatic: no cervical or axillary lymphadenopathy Results & Data Results & Data ([facility]) Vital Signs (Past 12 Hours) Vital Signs Temp Pulse Pulse Resp BP Pulse Ox 07/19/20 12:19 77 21 130/78 90 07/19/20 11:31 83 96 07/19/20 11:01 36.8 C 75 21 145/86 H 93 07/19/20 07:47 81 24 91 07/19/20 07:30 36.7 C 74 22 128/79 95 07/19/20 05:06 36.6 C 73 22 119/76 95 07/19/20 02:13 76 34 H 92 Laboratory Results Laboratory Results - last 24 hr 07/18/20 07/18/20 07/18/20 14:45 14:45 14:45 WBC 5.51 RBC 4.28 Hgb 12.1 Hct 36.5 L MCV 85.3 MCH 28.3 MCHC 33.2 RDW Std Deviation 48.2 H RDW Coeff of Fawn 15.5 H Plt Count 192 MPV 12.0 H Immature Gran % (Auto) 0.4 Neut % (Auto) 90.7 Lymph % (Auto) 6.0 Clare % (Auto) 2.5 Eos % (Auto) 0.0 Baso % (Auto) 0.4 Neut # (Auto) 5.00 Lymph # (Auto) 0.33 L Clare # (Auto) 0.14 Eos # (Auto) 0.00 Baso # (Auto) 0.02 Immature Gran # (Auto) 0.02 Echinocytes PT 12.2 H INR 1.2 H APTT 27.6 PTT Ratio 1.0 ABG pH ABG pCO2 ABG pO2 ABG HCO3 ABG O2 Saturation ABG Base Excess Keo Test VBG pH VBG pCO2 VBG pO2 VBG HCO3 VBG O2 Saturation VBG Base Excess Barometric Pressure Oxygen Given Sodium 139 Potassium 3.2 L Chloride 105 Carbon Dioxide 26 Anion Gap 8.0 BUN 15 Creatinine 0.88 Est Cr Clr Drug Dosing 57.6 Est GFR ( Amer) 79.9 Est GFR (Non-Af Amer) 68.9 BUN/Creatinine Ratio 17.0 Glucose 115 H Lactate Calcium 8.7 Magnesium 1.9 Total Bilirubin 0.6 AST 17 ALT 26 Alkaline Phosphatase 96 Troponin I 0.036 Total Protein 7.1 Albumin 2.5 L Globulin 4.6 H Albumin/Globulin Ratio 0.5 L Procalcitonin Urine Color Urine Appearance Urine pH Ur Specific [place] Urine Protein Urine Glucose (UA) Urine Ketones Urine Blood Urine Nitrite Urine Bilirubin Urine Urobilinogen Ur Leukocyte Esterase Urine WBC (Auto) Urine RBC (Auto) U Hyaline Cast (Auto) U Epithel Cells (Auto) Urine Bacteria (Auto) Ur Renal Epithelial Cell Granular Casts Urine Mucus COVID-19 Eval Order SARS-CoV-2, RNA, NAAT 07/18/20 07/18/20 07/18/20 14:45 14:45 14:45 WBC RBC Hgb Hct MCV MCH MCHC RDW Std Deviation RDW Coeff of Fawn Plt Count MPV Immature Gran % (Auto) Neut % (Auto) Lymph % (Auto) Clare % (Auto) Eos % (Auto) Baso % (Auto) Neut # (Auto) Lymph # (Auto) Clare # (Auto) Eos # (Auto) Baso # (Auto) Immature Gran # (Auto) Echinocytes PT INR APTT PTT Ratio ABG pH ABG pCO2 ABG pO2 ABG HCO3 ABG O2 Saturation ABG Base Excess Keo Test VBG pH VBG pCO2 VBG pO2 VBG HCO3 VBG O2 Saturation VBG Base Excess Barometric Pressure Oxygen Given Sodium Potassium Chloride Carbon Dioxide Anion Gap BUN Creatinine Est Cr Clr Drug Dosing Est GFR ( Amer) Est GFR (Non-Af Amer) BUN/Creatinine Ratio Glucose Lactate 2.0 Calcium Magnesium Total Bilirubin AST ALT Alkaline Phosphatase Troponin I Total Protein Albumin Globulin Albumin/Globulin Ratio Procalcitonin 0.34 Urine Color Urine Appearance Urine pH Ur Specific [place] Urine Protein Urine Glucose (UA) Urine Ketones Urine Blood Urine Nitrite Urine Bilirubin Urine Urobilinogen Ur Leukocyte Esterase Urine WBC (Auto) Urine RBC (Auto) U Hyaline Cast (Auto) U Epithel Cells (Auto) Urine Bacteria (Auto) Ur Renal Epithelial Cell Granular Casts Urine Mucus COVID-19 Eval [facility] SARS-CoV-2, RNA, NAAT 07/18/20 07/18/20 07/18/20 14:45 15:30 19:19 WBC RBC Hgb Hct MCV MCH MCHC RDW Std Deviation RDW Coeff of Fawn Plt Count MPV Immature Gran % (Auto) Neut % (Auto) Lymph % (Auto) Clare % (Auto) Eos % (Auto) Baso % (Auto) Neut # (Auto) Lymph # (Auto) Clare # (Auto) Eos # (Auto) Baso # (Auto) Immature Gran # (Auto) Echinocytes PT INR APTT PTT Ratio ABG pH 7.46 H ABG pCO2 33 L ABG pO2 63 L ABG HCO3 23 ABG O2 Saturation 91.9 ABG Base Excess -0.1 Keo Test Pos VBG pH 7.43 H VBG pCO2 39 VBG pO2 28 VBG HCO3 25 VBG O2 Saturation < 60.0 VBG Base Excess 0.9 Barometric Pressure 742.9 744.0 Oxygen Given 35 Sodium Potassium Chloride Carbon Dioxide Anion Gap BUN Creatinine Est Cr Clr Drug Dosing Est GFR ( Amer) Est GFR (Non-Af Amer) BUN/Creatinine Ratio Glucose Lactate Calcium Magnesium Total Bilirubin AST ALT Alkaline Phosphatase Troponin I Total Protein Albumin Globulin Albumin/Globulin Ratio Procalcitonin Urine Color Urine Appearance Urine pH Ur Specific [place] Urine Protein Urine Glucose (UA) Urine Ketones Urine Blood Urine Nitrite Urine Bilirubin Urine Urobilinogen Ur Leukocyte Esterase Urine WBC (Auto) Urine RBC (Auto) U Hyaline Cast (Auto) U Epithel Cells (Auto) Urine Bacteria (Auto) Ur Renal Epithelial Cell Granular Casts Urine Mucus COVID-19 Eval Order SARS-CoV-2, RNA, NAAT POSITIVE A* 07/19/20 07/19/20 07/19/20 06:15 07:51 07:51 WBC 6.10 RBC 4.34 Hgb 12.2 Hct 37.0 MCV 85.3 MCH 28.1 MCHC 33.0 RDW Std Deviation 48.3 H RDW Coeff of Fawn 15.5 H Plt Count 190 MPV 11.9 H Immature Gran % (Auto) 0.3 Neut % (Auto) 84.3 Lymph % (Auto) 10.0 Clare % (Auto) 4.9 Eos % (Auto) 0.0 Baso % (Auto) 0.5 Neut # (Auto) 5.14 Lymph # (Auto) 0.61 L Clare # (Auto) 0.30 Eos # (Auto) 0.00 Baso # (Auto) 0.03 Immature Gran # (Auto) 0.02 Echinocytes 1+ PT INR APTT PTT Ratio ABG pH ABG pCO2 ABG pO2 ABG HCO3 ABG O2 Saturation ABG Base Excess Keo Test VBG pH VBG pCO2 VBG pO2 VBG HCO3 VBG O2 Saturation VBG Base Excess Barometric Pressure Oxygen Given Sodium 140 Potassium 3.4 L Chloride 106 Carbon Dioxide 24 Anion Gap 10.0 BUN 16 Creatinine 0.64 Est Cr Clr Drug Dosing 80.0 Est GFR ( Amer) 108.5 Est GFR (Non-Af Amer) 93.6 BUN/Creatinine Ratio 25.3 H Glucose 98 Lactate Calcium 8.6 Magnesium Total Bilirubin 0.6 AST 16 ALT 24 Alkaline Phosphatase 86 Troponin I Total Protein 6.8 Albumin 2.2 L Globulin 4.6 H Albumin/Globulin Ratio 0.5 L Procalcitonin Urine Color Dark Yellow Urine Appearance Clear Urine pH 5.0 Ur Specific [place] > 1.045 H Urine Protein 1+ H Urine Glucose (UA) Negative Urine Ketones 1+ H Urine Blood Negative Urine Nitrite Negative Urine Bilirubin Negative Urine Urobilinogen Negative Ur Leukocyte Esterase Negative Urine WBC (Auto) 1-5 Urine RBC (Auto) 0-4 U Hyaline Cast (Auto) 1-5 U Epithel Cells (Auto) >30 H Urine Bacteria (Auto) Negative Ur Renal Epithelial Cell Not Reportable Granular Casts 1-5 H Urine Mucus Present A COVID-19 Eval Order SARS-CoV-2, RNA, NAAT 07/19/20 07:51 WBC RBC Hgb Hct MCV MCH MCHC RDW Std Deviation RDW Coeff of Fawn Plt Count MPV Immature Gran % (Auto) Neut % (Auto) Lymph % (Auto) Clare % (Auto) Eos % (Auto) Baso % (Auto) Neut # (Auto) Lymph # (Auto) Clare # (Auto) Eos # (Auto) Baso # (Auto) Immature Gran # (Auto) Echinocytes PT INR APTT PTT Ratio ABG pH ABG pCO2 ABG pO2 ABG HCO3 ABG O2 Saturation ABG Base Excess Keo Test VBG pH VBG pCO2 VBG pO2 VBG HCO3 VBG O2 Saturation VBG Base Excess Barometric Pressure Oxygen Given Sodium Potassium Chloride Carbon Dioxide Anion Gap BUN Creatinine Est Cr Clr Drug Dosing Est GFR ( Amer) Est GFR (Non-Af Amer) BUN/Creatinine Ratio Glucose Lactate Calcium Magnesium Total Bilirubin AST ALT Alkaline Phosphatase Troponin I Total Protein Albumin Globulin Albumin/Globulin Ratio Procalcitonin 0.29 Urine Color Urine Appearance Urine pH Ur Specific [place] Urine Protein Urine Glucose (UA) Urine Ketones Urine Blood Urine Nitrite Urine Bilirubin Urine Urobilinogen Ur Leukocyte Esterase Urine WBC (Auto) Urine RBC (Auto) U Hyaline Cast (Auto) U Epithel Cells (Auto) Urine Bacteria (Auto) Ur Renal Epithelial Cell Granular Casts Urine Mucus COVID-19 Eval Order SARS-CoV-2, RNA, NAAT Medications Administered Current Inpatient Medications Enoxaparin Sodium (Enoxaparin Inj 40 Mg/0.4 Ml Syr) 40 mg SQ BID [facility] Stop: 08/17/20 22:14 Last Admin: 07/19/20 09:22 Dose: 40 mg Documented by: Fexofenadine HCl (Fexofenadine Hcl 180 Mg Tab) 180 mg PO [facility] Stop: 08/18/20 08:59 Last Admin: 07/19/20 09:22 Dose: 180 mg Documented by: Remdesivir 100 mg/ Sodium (Chloride) 250 mls @ 250 mls/hr IV Q24H [facility]; Protocol Stop: 07/22/20 20:59 Dexamethasone 6 mg/ Syringe 1.5 mls @ 1 mls/min IV [facility] Stop: 07/28/20 08:59 Last Admin: 07/19/20 09:22 Dose: 1 mls/min Documented by: Multivitamins/Minerals (Calcium 600mg + Vit D 400 Iu Tab) 1 tab PO [facility] Stop: 08/18/20 08:59 Last Admin: 07/19/20 09:22 Dose: 1 tab Documented by: Naproxen (Naproxen 250 Mg Tab) 250 mg PO DAILY PRN PRN Reason: Pain Stop: 08/17/20 22:03 Ondansetron HCl (Ondansetron Inj 2 Mg/Ml 2 Ml Vial) 4 mg IV Q6H PRN PRN Reason: Nausea Stop: 08/17/20 20:33 Pantoprazole Sodium (Pantoprazole 40 Mg Tab) 40 mg PO [facility] Stop: 08/18/20 08:59 Last Admin: 07/19/20 09:22 Dose: 40 mg Documented by: Polyethylene Glycol (Polyethylene (Miralax) 17 Gm Pack) 17 gm PO DAILY PRN PRN Reason: Constipation Stop: 08/17/20 20:33 Sodium Chloride (Sodium Chloride 0.9% 10ml Flush) 30 ml IV Q24H [facility] Stop: 07/22/20 20:01 Vitamin D (Cholecalciferol 1,000 Units 25 Mcg Tab) 1,000 units PO [facility] Stop: 08/18/20 08:59 Last Admin: 07/19/20 09:22 Dose: 1,000 units Documented by: PG Care Time/CCT Total # of Minutes Spent Total Time Spent with Patient: Total time spent is greater than 50% in coordination of care (as documented) at patient's floor/unit and/or counseling patient: Coding Level of Care Code 45425 Subseq Hosp Care Lvl 3 Diagnoses COVID-19 U07.1 Acute respiratory failure with hypoxia J96.01 Chronic GERD K21.9 Multiple myeloma C90.00 DVT prophylaxis Z29.9 Hypokalemia E87.6
--- NOTE | 2020-07-19 12:57 | Pulmonary Consultation ---
Date of Consultation July 19, 2020 Assessment & Plan (1) Acute respiratory failure with hypoxia: Continue treatment of COVID-19 per hospital protocol which includes Decadron and remdesivir. Continue self proning as tolerated. Recommend trying to keep the patient euvolemic. She is immunocompromised with Revlimid and Velcade that she is receiving for multiple myeloma which may also be contributing to her degree of lung injury. Steroids would hopefully benefit in this setting as well. A 5 to 7-day course of azithromycin or doxycycline can be considered to cover for atypical pneumonia. Legionella urine antigen can also be considered. Her procalcitonin was within normal limits, but this could be falsely low in atypical infections as well. Bronchoscopy would likely not be beneficial in this situation and could worsen her underlying hypoxia which would almost certainly lead to intubation and mechanical ventilation. I do suspect that the major overlying issue here is her severe Covid 19 infection. Her overall prognosis guarded. She indicated to me that she would like to remain a full code. Pulmonary will continue to follow on an as-needed basis. Please call us with questions. 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 Patient notes that she started feeling fatigued and had viral-like symptoms starting last Tuesday. She has had increasing fatigue and shortness of breath throughout the week. She also notes subjective fevers. She describes that her checked her pulse oximetry on and noted that her sats were in the 80s. She is feeling very tired currently and short of breath at rest. She notes that she is unable to prone as she frequently gags when she is proning due to the high flow nasal cannula and BiPAP mask. She currently denies any fevers or chills. She denies any chest pain. She is requiring 60 L and 60% FiO2. She is saturating in the high 80s to low 90s. COVID-19 testing was positive on 07/15/2020 and 07/18/2020. Chest CTA yesterday demonstrated extensive multifocal pneumonia with bilateral groundglass opacities. No PE was seen. Blood cultures are pending. Procalcitonin was within normal limits on the and the . She is currently receiving remdesivir Decadron. She is on 40 mg of Lovenox twice daily. Allergies Allergy/AdvReac Type Severity Reaction Status Date / Time diazepam [From Valium] AdvReac Severe Nausea Unverified 07/18/20 15:06 tramadol AdvReac Severe Nausea Unverified 07/18/20 15:06 codeine AdvReac Unknown NAUSEA AND Verified 07/18/20 15:06 VOMITING propoxyphene AdvReac Unknown NAUSEA AND Verified 07/18/20 15:06 VOMITING Sulfa (Sulfonamide AdvReac Unknown NAUSEA AND Verified 07/18/20 15:06 Antibiotics) VOMITING Home Medications Medication Instructions Recorded Confirmed Type fexofenadine 180 mg tablet 180 mg PO QAM PRN tab 05/04/19 07/18/20 History fish oil-dha-epa 1,200 mg-144 1 cap PO QAM cap 05/04/19 07/18/20 History mg-216 mg capsule fluticasone propionate 50 2 sprays INTRANASAL DAILY #1 gm 05/04/19 07/18/20 History mcg/actuation nasal spray,suspension glucosamine HCl 1,500 mg tablet 3,000 mg PO QPM tab 05/04/19 07/18/20 History naproxen sodium 220 mg capsule 220 mg PO UD PRN cap 05/04/19 07/18/20 History omeprazole magnesium 20 mg 20 mg PO QAM tab 05/04/19 07/18/20 History tablet,delayed release red yeast rice 600 mg tablet 600 mg PO BID tab 05/04/19 07/18/20 History epinephrine 0.3 mg/0.3 mL See Rx Instructions .ROUTE 01/17/20 07/18/20 Rx injection, auto-injector .COMPLEX #2 ea calcium carbonate-vitamin D3 1 tab PO QAM 07/18/20 07/18/20 History [Calcium + D] cholecalciferol (vitamin D3) 1,000 units PO QAM 07/18/20 07/18/20 History [Vitamin D3] lenalidomide [Revlimid] 25 mg PO QDL 07/18/20 07/18/20 History Patient History Medical History (Updated 07/19/20 @ 07:14 by Dale Love MD) Allergic rhinitis Annual physical exam Chronic GERD Multinodular goiter Osteoarthritis of left knee Osteopenia Paraproteinemia Surgical History H/O arthroscopic knee surgery History of delivery History of laparoscopy History of tonsillectomy History of tubal ligation Family History Father Arthritis Heart disease Hypotension Vertigo Mother Heart disease Hyperlipidemia Hypertension Denies family history of Ovarian cancer Prostate cancer Breast cancer Colorectal cancer Social History Smoking Status: Never smoker Hx Alcohol Use: Yes Alcohol type: beer and wine Hx Substance Use: No Preferred Language: Greenlandic Communication Ability: Effective Bilingual Account Manager Required: No Beliefs That Will Affect Care: None Current Living Situation: Spouse Other Information That Helps Us Care for You: No Feels Safe at Home: Yes Safety Concerns: Feels Safe At This Time Assistive Devices: None Review of Systems Review of Systems: All systems reviewed & are unremarkable except as noted in HPI & below Physical Exam Constitutional: + acute distress and + ill appearing Eyes: PERRL, conjunctivae normal, anicteric sclerae ENMT: external ear and nose normal, oropharynx normal Neck: normal visual inspection Respiratory: + labored breathing and + tachypneic Mild crackles bilaterally. Cardiovascular: RRR, no murmur, no edema Gastrointestinal (Abdomen): normal bowel sounds, soft, nontender, no hepatosplenomegaly Musculoskeletal: no cyanosis or clubbing, extremities motor strength 5/5 Skin: no rashes, warm and dry Neurologic: PERRL, EOMI, accommodation nl, no face palsy, no dysarthria Psychiatric: A+Ox3, euthymic affect Results & Data Results & Data ([facility]) Vital Signs (Past 12 Hours) Vital Signs Temp Pulse Pulse Resp BP Pulse Ox 07/19/20 12:19 77 21 130/78 90 07/19/20 11:31 83 96 07/19/20 11:01 98.2 F 75 21 145/86 H 93 07/19/20 07:47 81 24 91 07/19/20 07:30 98.1 F 74 22 128/79 95 07/19/20 05:06 97.9 F 73 22 119/76 95 07/19/20 02:13 76 34 H 92 I reviewed the vital signs, labs and imaging PG Care Time/CCT Total # of Minutes Spent Total Time Spent with Patient: Total time spent is greater than 50% in coordination of care (as documented) at patient's floor/unit and/or counseling patient: Coding Level of Care Code 89742 Inpt Consult Level 5 Diagnoses Acute respiratory failure with hypoxia J96.01 COVID-19 U07.1 Hypoxia R09.02 Multiple myeloma C90.00
[2020-07-19] MEDS: REMDESIVIR 100 MG in SODIUM CHLORIDE 0.9% 230 ML IV SCH (19:59)
[2020-07-19] MEDS: SODIUM CHLORIDE 0.9% 10ML FLUSH IV SCH (23:01)
--- NOTE | 2020-07-20 08:24 | Consultation Report ---
DATE OF CONSULTATION: 07/20/2020 REASON FOR CONSULTATION: A 65-year-old female patient with IgG kappa multiple myeloma, and recent COVID-19 infection. HISTORY OF PRESENT ILLNESS: The patient is a pleasant 65-year-old female patient who was admitted to [facility] on 07/18/2020 with subacute onset shortness of breath, nasal congestion, sore throat, nonproductive cough, low-grade fever and fatigue. Apparently, her symptoms had started roughly 6 days prior to admission. She believes she contracted the infection from her . Apparently, the patient's had been prompting the patient to come to the Emergency Room and finally when her pulse ox dropped to 45%, ambulance was summoned. The patient is well known to [facility] previous patient of Dr. Emmett Cuevas's diagnosed with IgG kappa multiple myeloma; however, had been observed up until 05/2020. Initial bone marrow biopsy and aspiration reveals a 13% plasmacytosis. Her M spike eclipsed 3 grams per deciliter in May and thus was started on combination Revlimid, Velcade and dexamethasone. She has not had any therapy now in the last couple of weeks. She has not had Velcade in the last couple of weeks; however, recently completed her third cycle of Revlimid. She is now on a break week and should remain off of therapy until she is fully recovered. Her peripheral blood counts actually looked quite good. Her breathing has improved. She is currently on BiPAP. She offers no specific complaints at bedside this morning. PAST MEDICAL HISTORY: Includes multiple myeloma, COVID-19, GERD, multinodular goiter, osteoarthritis of the left knee, osteopenia. PAST SURGICAL HISTORY: Includes arthroscopic knee surgery, section, laparoscopy, tonsillectomy, and tubal ligation. MEDICATIONS: Revlimid 25 mg p.o. daily for 21 days every 28-day cycle completed 3 cycles thus far, cholecalciferol 1000 units p.o. daily, calcium carbonate 1 tablet p.o. every day, red yeast rice 600 mg p.o. b.i.d., omeprazole 20 mg p.o. daily, naproxen sodium 220 mg p.o. as directed p.r.n., Flonase 2 sprays intranasally daily, fexofenadine 180 mg p.o. daily p.r.n. ALLERGIES: SULFA, PROPOXYPHENE, CODEINE, TRAMADOL, DIAZEPAM. FAMILY HISTORY: Father suffered from heart disease, hypertension, and arthritis. Mother suffered from heart disease, hyperlipidemia and hypertension. No family history of cancers. SOCIAL HISTORY: The patient lives with her . She enjoys an occasional beer and wine. She is a nonsmoker and non-illicit drug user. REVIEW OF SYSTEMS: CONSTITUTIONAL: As per HPI. She is not anorexic or losing weight. SKIN: No rashes or lesions. No history of dermatoses. HEENT: No current headaches, lightheadedness or dizziness. Previous sinus symptoms, specifically congestion, rhinorrhea. Positive for sore throat, no dysphagia; however. LYMPH: No history of lymphoproliferative disease. CARDIAC: Negative for angina or palpitations. PULMONARY: Negative for acute shortness of breath or dyspnea. She is presently on BiPAP. Apparently, she had a nonproductive cough without hemoptysis prior to admission. GASTROINTESTINAL: No current abdominal pain, nausea, vomiting, diarrhea or constipation, hematochezia or melena stools. GENITOURINARY: No hematuria, dysuria, urinary incontinence. PSYCHIATRIC: Negative for anxiety, depression or psychoses. ENDOCRINE: Negative for diabetes or thyroid disease. NEUROLOGIC: Negative for seizure, stroke, or migraine headache. HEMATOLOGIC: IgG kappa multiple myeloma, currently on RVD. PHYSICAL EXAMINATION: GENERAL: Very pleasant 65-year-old female in no acute distress. VITAL SIGNS: Temperature 36, pulse 73, respiratory rate 18, blood pressure 129/78. SKIN: Without rash or lesion. HEAD: Atraumatic, normocephalic. Eyes: PERRLA, EOMI. Nares were not examined. Throat was not examined. Current BiPAP therapy. NECK: Supple without JVD or thyromegaly. HEART: Regular rate and rhythm. LUNGS: Clear to auscultation bilaterally. ABDOMEN: Soft, nontender, nondistended, without palpable hepatosplenomegaly. EXTREMITIES: No calf tenderness or swelling. No clubbing, cyanosis, or edema. Strength testing not done. NEUROLOGICAL: She is awake, alert and oriented x3. Cranial nerves were not tested. LABORATORY DATA: WBC count 6100, hemoglobin 12.2, platelet count 190,000. She has adequate neutrophils at 5100. Sodium 140, potassium 3.4, chloride 106, carbon dioxide 24, BUN 16, creatinine 0.64, albumin 2.2, globulin 4.6. RADIOGRAPHIC DATA: CTA of the chest, no evidence of pulmonary embolism, extensive bilateral airspace opacities consistent with multifocal pneumonia. IMPRESSION: 1. Multifocal pneumonia. 2. COVID-19 infection. 3. IgG kappa multiple myeloma. 4. Gastroesophageal reflux disease. PLAN: I have been asked to visit with the patient to provide recommendations regarding her therapy. The patient was recently started on combination Revlimid, Velcade and dexamethasone in 05/2020 for smoldering IgG kappa multiple myeloma. The patient recently completed her third cycle of Revlimid. She is now on a break week and we will ask her to suspend therapy until she is fully recovered from COVID-19. Agree with current management. She is receiving a remdesivir and dexamethasone as well as high-flow oxygen and BiPAP. FIO2 currently 70%. She seems to be quite comfortable and hopefully turning the corner. Her peripheral blood counts are satisfactory and do not need attended to at this time. We will continue to follow her periodically during her stay. She has been following with Blanca Pimentel on behalf of Dr. Cuevas, but certainly I would like to reconvene with the patient to ensure she is stable to resume her current regimen. Thank you very much for allowing us to participate in her care.
[2020-07-20 08:55] LABS: BUN Creatinine Ratio 29.9 (10-20); Calcium 8.5 mg/dl (8.5-10.1); Creatinine Clr Calc Pharmacy 78.1 ml/min; Est GFR (Non-African American) 93.2; Potassium 3.2 mmol/L (3.5-5.1)
[2020-07-20] MEDS: POTASSIUM CHLORIDE CRTAB 20 MEQ TABCR PO SCH ×2 (10:01→15:59)
[2020-07-20] MEDS: dexAMETHasone 6 MG in SYRINGE 0 ML IV SCH (10:01)
[2020-07-20] MEDS: CALCIUM 600MG + VIT D 400 IU TAB PO SCH (10:01)
[2020-07-20] MEDS: ENOXAPARIN INJ 40 MG/0.4 ML SYR SQ SCH ×2 (10:01→21:18)
[2020-07-20] MEDS: FEXOFENADINE HCL 180 MG TAB PO SCH (10:01)
[2020-07-20] MEDS: PANTOprazole 40 MG TAB PO SCH (10:01)
[2020-07-20] MEDS: CHOLECALCIFEROL 1,000 UNITS 25 MCG TAB PO SCH (10:01)
--- NOTE | 2020-07-20 12:45 | Hospitalist Progress Note ---
Date of Service July 20, 2020 Assessment & Plan (1) COVID-19: Dexamethasone 6mg IV daily for 10 days, day 3 5 days remdesivir, day 3 Will defer convalescent plasma as she presented day 6 of illness Isolation precautions with airborne and droplet continue supportive care with high flow nasal canula, requiring more FiO2 today discussed with Dr. Farooq 07/19, appreciate his input no need for intubation at this time, monitor closely (2) Acute respiratory failure with hypoxia: Tachypneic and hypoxic on presentation breathing a little easier past two days on high flow, FiO2 is 70% CT chest negative for PE (3) Chronic GERD: Switch omeprazole for pantoprazole as per hospital formulary. (4) Multiple myeloma: Discussed with Dr Conner. Will initially hold Revlimid per his advice he will follow up with patient in the clinic (5) DVT prophylaxis: Lovenox 40mg SQ BID (6) Hypokalemia: 3.2 on admission, it is 3.2 again today replace with 20mEq BID repeat BMP in AM Admission and Anticipated Discharge Date Admission Date: July 18, 2020 Subjective patient doing about the same today, still on high flow, not in any distress she is hungry, eating better, she had a BM urine is a little concentrated, needs to drink more labs show K of 3.2, Cr 0.[address] Conner Review of Systems Review of Systems: All systems reviewed & are unremarkable except as noted in Subjective Respiratory: + cough, + dyspnea and + dyspnea on exertion; no sputum production Cardiovascular: no chest pain and no edema Gastrointestinal: no abdominal pain, no nausea, no vomiting, no constipation and no diarrhea/loose stools Physical Exam Constitutional: WD/WN, vitals as above no acute distress Neck: trachea midline, no thyromegaly Respiratory: normal respiratory effort and + tachypneic; no respiratory distress, no labored breathing and does not use accessory muscles Cardiovascular: RRR, no murmur, no edema Gastrointestinal (Abdomen): normal bowel sounds, soft, nontender, no hepatosplenomegaly Musculoskeletal: no cyanosis or clubbing, extremities motor strength 5/5 Skin: no rashes, warm and dry Neurologic: patellar DTR's 2+ bilat, sensation intact and PERRL, EOMI, accommodation nl, no face palsy, no dysarthria Psychiatric: A+Ox3, euthymic affect Lymphatic: no cervical or axillary lymphadenopathy Results & Data Results & [facility] ([facility]) Vital Signs (Past 12 Hours) Vital Signs Temp Pulse Pulse Resp BP Pulse Ox 07/20/20 11:13 81 18 93 07/20/20 11:08 36.8 C 75 19 115/71 96 07/20/20 08:06 77 20 94 07/20/20 07:32 36.7 C 69 23 122/73 95 07/20/20 04:55 71 23 90 07/20/20 03:41 36 C L 73 18 129/78 95 Laboratory Results Laboratory Results - last 24 hr 07/20/20 07:21 Sodium 140 Potassium 3.2 L Chloride 105 Carbon Dioxide 27 Anion Gap 8.0 BUN 19 H Creatinine 0.65 Est Cr Clr Drug Dosing 78.1 Est GFR ( Amer) 108.0 Est GFR (Non-Af Amer) 93.2 BUN/Creatinine Ratio 29.9 H Glucose 102 H Calcium 8.5 Medications Administered Current Inpatient Medications Enoxaparin Sodium (Enoxaparin Inj 40 Mg/0.4 Ml Syr) 40 mg SQ BID [facility] Stop: 08/17/20 22:14 Last Admin: 07/20/20 10:01 Dose: 40 mg Documented by: Fexofenadine HCl (Fexofenadine Hcl 180 Mg Tab) 180 mg PO [facility] Stop: 08/18/20 08:59 Last Admin: 07/20/20 10:01 Dose: 180 mg Documented by: Remdesivir 100 mg/ Sodium (Chloride) 250 mls @ 250 mls/hr IV Q24H [facility]; Protocol Stop: 07/22/20 20:59 Last Infusion: 07/19/20 23:01 Dose: Infused Documented by: Dexamethasone 6 mg/ Syringe 1.5 mls @ 1 mls/min IV [facility] Stop: 07/28/20 08:59 Last Admin: 07/20/20 10:01 Dose: 1 mls/min Documented by: Multivitamins/Minerals (Calcium 600mg + Vit D 400 Iu Tab) 1 tab PO [facility] Stop: 08/18/20 08:59 Last Admin: 07/20/20 10:01 Dose: 1 tab Documented by: Naproxen (Naproxen 250 Mg Tab) 250 mg PO DAILY PRN PRN Reason: Pain Stop: 08/17/20 22:03 Ondansetron HCl (Ondansetron Inj 2 Mg/Ml 2 Ml Vial) 4 mg IV Q6H PRN PRN Reason: Nausea Stop: 08/17/20 20:33 Pantoprazole Sodium (Pantoprazole 40 Mg Tab) 40 mg PO QAM [facility] Stop: 08/18/20 08:59 Last Admin: 07/20/20 10:01 Dose: 40 mg Documented by: Polyethylene Glycol (Polyethylene (Miralax) 17 Gm Pack) 17 gm PO DAILY PRN PRN Reason: Constipation Stop: 08/17/20 20:33 Potassium Chloride (Potassium Chloride Crtab 20 Meq Tabcr) 20 meq PO BID@0800,1600 [facility] Stop: 08/19/20 07:59 Last Admin: 07/20/20 10:01 Dose: 20 meq Documented by: Sodium Chloride (Sodium Chloride 0.9% 10ml Flush) 30 ml IV Q24H [facility] Stop: 07/22/20 20:01 Last Admin: 07/19/20 23:01 Dose: 30 ml Documented by: Vitamin D (Cholecalciferol 1,000 Units 25 Mcg Tab) 1,[facility] Stop: 08/18/20 08:59 Last Admin: 07/20/20 10:01 Dose: 1,000 units Documented by: PG Care Time/CCT Total # of Minutes Spent Total Time Spent with Patient: Total time spent is greater than 50% in coordination of care (as documented) at patient's floor/unit and/or counseling patient: Coding Level of Care Code 42620 Subseq Hosp Care Lvl 2 Diagnoses COVID-19 U07.1 Acute respiratory failure with hypoxia J96.01 Chronic GERD K21.9 Multiple myeloma C90.00 DVT prophylaxis Z29.9 Hypokalemia E87.6
[2020-07-20] MEDS: REMDESIVIR 100 MG in SODIUM CHLORIDE 0.9% 230 ML IV SCH (21:15)
[2020-07-20] MEDS: SODIUM CHLORIDE 0.9% 10ML FLUSH IV SCH (21:18)
[2020-07-21] MEDS: dexAMETHasone 6 MG in SYRINGE 0 ML IV SCH (08:17)
[2020-07-21] MEDS: ENOXAPARIN INJ 40 MG/0.4 ML SYR SQ SCH ×2 (08:17→20:47)
[2020-07-21] MEDS: PANTOprazole 40 MG TAB PO SCH (08:26)
[2020-07-21] MEDS: POTASSIUM CHLORIDE CRTAB 20 MEQ TABCR PO SCH (08:26)
[2020-07-21] MEDS: CALCIUM 600MG + VIT D 400 IU TAB PO SCH (08:26)
[2020-07-21] MEDS: FEXOFENADINE HCL 180 MG TAB PO SCH (08:26)
[2020-07-21] MEDS: CHOLECALCIFEROL 1,000 UNITS 25 MCG TAB PO SCH (08:27)
--- NOTE | 2020-07-21 09:03 | Hospitalist Progress Note ---
Date of Service July 21, 2020 Assessment & Plan (1) COVID-19: Dexamethasone 6mg IV daily for 10 days, day 4 5 days remdesivir, day 4 Will defer convalescent plasma as she presented day 6 of illness Isolation precautions with airborne and droplet patient now intubated and on mechanical ventilation (2) Acute respiratory failure with hypoxia: Tachypneic and hypoxic on presentation CT chest negative for PE required high flow nasal canula since admission rapidly deteriorated morning of 07/21, required BIPAP moved to ICU status, placed on Precedex but still working hard to breathe intubated in the evening on 07/21, management per Dr. Aguilra (3) Chronic GERD: Switch omeprazole for pantoprazole as per hospital formulary. (4) Multiple myeloma: Discussed with Dr Conner. Will initially hold Revlimid per his advice he will follow up with patient in the clinic (5) DVT prophylaxis: Lovenox 40mg SQ BID (6) Hypokalemia: 3.2 on admission, up to 3.4 today replaced with 20mEq BID will now be on ICU electrolyte replacement protocol Admission and Anticipated Discharge Date Admission Date: July 18, 2020 Subjective patient working hard to breathe, now requiring BIPAP laying on her side, RR in 30's, shallow, saturations 98-99% discussed with her that intubation is likely necessary, she understands Dr. Aguilar evaluated her at the bedside this morning, made some adjustments to BIPAP, transferred to ICU status, sedated with Precedex RR remained high in 30's, Dr. Aguilar elected to intubate her at 530pm Review of Systems Review of Systems: All systems reviewed & are unremarkable except as noted in Subjective Constitutional: + fatigue and + weakness; no fever, no chills and no sweats Respiratory: + dyspnea and + dyspnea on exertion; no cough and no sputum production Cardiovascular: no chest pain Gastrointestinal: no abdominal pain, no nausea, no vomiting, no constipation and no diarrhea/loose stools Physical Exam Constitutional: WD/WN, vitals as above no acute distress Neck: trachea midline, no thyromegaly Respiratory: + labored breathing (on BIPAP), + uses accessory muscles and + tachypneic; no respiratory distress Cardiovascular: RRR, no murmur, no edema Gastrointestinal (Abdomen): normal bowel sounds, soft, nontender, no hepatosplenomegaly Musculoskeletal: no cyanosis or clubbing, extremities motor strength 5/5 Skin: no rashes, warm and dry Neurologic: patellar DTR's 2+ bilat, sensation intact and PERRL, EOMI, accommodation nl, no face palsy, no dysarthria Psychiatric: A+Ox3, euthymic affect Lymphatic: no cervical or axillary lymphadenopathy Results & Data Results & Data ([facility]) Vital Signs (Past 12 Hours) Vital Signs Temp Pulse Pulse Resp BP Pulse Ox 07/21/20 08:20 38 H 98 07/21/20 07:27 37.1 C 78 34 H 142/80 H 92 07/21/20 06:58 78 36 H 97 07/21/20 05:15 79 36 H 96 07/21/20 04:46 36.6 C 70 38 H 126/70 91 07/21/20 00:15 66 20 95 07/21/20 00:14 36.9 C 65 22 136/78 94 Laboratory Results Laboratory Results - last 24 hr 07/21/20 07/21/20 07/21/20 09:05 09:12 09:12 Sample Site POC pH POC pCO2 POC pO2 POC HCO3 POC Total CO2 POC Base Excess POC ABG O2 Sat Keo Test O2 Delivery Device POC O2 Rate Minute Ventilation POC FiO2 Tidal Volume PEEP Sodium 141 Potassium 3.4 L Chloride 106 Carbon Dioxide 31 Anion Gap 4.0 BUN 18 Creatinine 0.65 Est Cr Clr Drug Dosing 78.1 Est GFR ( Amer) 108.0 Est GFR (Non-Af Amer) 93.2 BUN/Creatinine Ratio 28.6 H Glucose 94 POC Glucose Calcium 8.6 Phosphorus 3.2 Magnesium 1.7 L NT-Pro-B Natriuret Pep 390 Cancelled Nasal Screen MRSA (PCR) Urine Legionella Ag Mycoplasma pneumon IgM 07/21/20 07/21/20 07/21/20 09:15 12:06 13:54 Sample Site POC pH POC pCO2 POC pO2 POC HCO3 POC Total CO2 POC Base Excess POC ABG O2 Sat Keo Test O2 Delivery Device POC O2 Rate Minute Ventilation POC FiO2 Tidal Volume PEEP Sodium Potassium Chloride Carbon Dioxide Anion Gap BUN Creatinine Est Cr Clr Drug Dosing Est GFR ( Amer) Est GFR (Non-Af Amer) BUN/Creatinine Ratio Glucose POC Glucose 116 H Calcium Phosphorus Magnesium NT-Pro-B Natriuret Pep Nasal Screen MRSA (PCR) Urine Legionella Ag Pending Mycoplasma pneumon IgM Pending 07/21/20 07/21/20 07/21/20 14:57 19:21 19:30 Sample Site POC pH POC pCO2 POC pO2 POC HCO3 POC Total CO2 POC Base Excess POC ABG O2 Sat Keo Test O2 Delivery Device POC O2 Rate Minute Ventilation POC FiO2 Tidal Volume PEEP Sodium Potassium Chloride Carbon Dioxide Anion Gap BUN Creatinine Est Cr Clr Drug Dosing Est GFR ( Amer) Est GFR (Non-Af Amer) BUN/Creatinine Ratio Glucose POC Glucose 190 H Calcium Phosphorus Magnesium 2.0 NT-Pro-B Natriuret Pep Nasal Screen MRSA (PCR) Negative Urine Legionella Ag Mycoplasma pneumon IgM 07/21/20 19:59 Sample Site Art Line POC pH 7.40 POC pCO2 40 POC pO2 76 L POC HCO3 25 H POC Total CO2 26 POC Base Excess 0.0 POC ABG O2 Sat 95.0 Keo Test NA O2 Delivery Device Ventilator POC O2 Rate 25 Minute Ventilation 9.5 POC FiO2 60 Tidal Volume 380 PEEP 15 Sodium Potassium Chloride Carbon Dioxide Anion Gap BUN Creatinine Est Cr Clr Drug Dosing Est GFR ( Amer) Est GFR (Non-Af Amer) BUN/Creatinine Ratio Glucose POC Glucose Calcium Phosphorus Magnesium NT-Pro-B Natriuret Pep Nasal Screen MRSA (PCR) Urine Legionella Ag Mycoplasma pneumon IgM Medications Administered Current Inpatient Medications Enoxaparin Sodium (Enoxaparin Inj 40 Mg/0.4 Ml Syr) 40 mg SQ BID REPLACED BY [facility] Stop: 08/17/20 22:14 Last Admin: 07/21/20 08:17 Dose: 40 mg Documented by: Fexofenadine HCl (Fexofenadine Hcl 180 Mg Tab) [facility] [place]: 08/18/20 08:59 Last Admin: 07/21/20 08:26 Dose: Not Given Documented by: Remdesivir 100 mg/ Sodium (Chloride) 250 mls @ 250 mls/hr IV Q24H REPLACED BY [facility]; Protocol Stop: 07/22/20 20:59 Last Infusion: 07/20/20 22:43 Dose: Infused Documented by: Dexamethasone 6 mg/ Syringe 1.5 mls @ 1 mls[place] [facility] [place]: 07/28/20 08:59 Last Admin: 07/21/20 08:17 Dose: 1 mls/min Documented by: Multivitamins/Minerals (Calcium 600mg + Vit D 400 Iu Tab) 1 tab [facility] [place]: 08/18/20 08:59 Last Admin: 07/21/20 08:26 Dose: Not Given Documented by: Naproxen (Naproxen 250 Mg Tab) 250 mg PO DAILY PRN PRN Reason: Pain Stop: 08/17/20 22:03 Ondansetron HCl (Ondansetron Inj 2 Mg/Ml 2 Ml Vial) 4 mg IV Q6H PRN PRN Reason: Nausea Stop: 08/17/20 20:33 Pantoprazole Sodium (Pantoprazole 40 Mg Tab) 40 mg PO QAM REPLACED BY [facility] Stop: 08/18/20 08:59 Last Admin: 07/21/20 08:26 Dose: Not Given Documented by: Polyethylene Glycol (Polyethylene (Miralax) 17 Gm Pack) 17 gm PO DAILY PRN PRN Reason: Constipation Stop: 08/17/20 20:33 Potassium Chloride (Potassium Chloride Crtab 20 Meq Tabcr) 20 meq PO BID@0800,1600 REPLACED BY [facility] Stop: 08/19/20 07:59 Last Admin: 07/21/20 08:26 Dose: Not Given Documented by: Sodium Chloride (Sodium Chloride 0.9% 10ml Flush) 30 ml IV Q24H [facility] Stop: 07/22/20 20:01 Last Admin: 07/20/20 21:18 Dose: 30 ml Documented by: Vitamin D (Cholecalciferol 1,000 Units 25 Mcg Tab) 1,000 units PO QAM REPLACED BY [facility] Stop: 08/18/20 08:59 Last Admin: 07/21/20 08:27 Dose: Not Given Documented by: PG Care Time/CCT Total # of Minutes Spent Total Time Spent with Patient: Total time spent is greater than 50% in coordination of care (as documented) at patient's floor/unit and/or counseling patient: Coding Level of Care Code 22395 Subseq Hosp Care Lvl 3 Diagnoses COVID-19 U07.1 Acute respiratory failure with hypoxia J96.01 Chronic GERD K21.9 Multiple myeloma C90.00 DVT prophylaxis Z29.9 Hypokalemia E87.6
[2020-07-21 10:22] LABS: BUN Creatinine Ratio 28.6 (10-20); Calcium 8.6 mg/dl (8.5-10.1); Creatinine Clr Calc Pharmacy 78.1 ml/min; Est GFR (Non-African American) 93.2; Potassium 3.4 mmol/L (3.5-5.1)
[2020-07-21] MEDS ORDERED: STAT IV Infusion **Titration per Protocol STA ×3 (10:49→19:35)
--- NOTE | 2020-07-21 11:10 | Critical Care Consultation ---
Date of Consultation July 21, 2020 Assessment & Plan (1) Acute respiratory failure with hypoxia: CTA 07/18/2020: Consolidative process dense bilateral lower lobes, diffuse groundglass opacities appreciated bilaterally upper and lower lobes with central scarring. Mild mediastinal lymphadenopathy. No signs of pulmonary embolus Patient had PET/CT done in October 2018 which did not show any interstitial thickening or any infiltrative changes at that time. -- Acute Hypoxic respiratory failure Secondary to multilobar pneumonia secondary to COVID-19 in an immunosuppressed patient Procalcitonin has been negative x2, patient is immunosuppressed though Continue with oxygen supplementation to keep O2 saturation greater than 90% Continue with BiPAP for the time being. If the respiratory rate does not go down patient will need intubation. Patient verbally agreed if need be. Component of pneumonitis from Velcade is also a possibility. She is already getting dexamethasone which should take care of it. 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 Plan: In/out: Negative 260,Patient is +1.5 L only since the time of admission BNP was negative today. Patient saturation is not an issue. The only issue is her respiratory rate. Which has been in the high 30s prior to the change on the BiPAP. If there is no improvement in her respiratory rate will intubate her and likely prone her. I am going to start the patient on Precedex to see if anxiety is not one of the reason of her tachypnea. Patient is afebrile. Temperature at the time of examination was 36.8 C axillary. I have personally spent 55 minutes of critical care time in the direct management of this patient. This is a life/limb threatening event. This includes time spent evaluating patient, direct bedside care, chart review, placing orders, interpretation of diagnostic studies, discussion with consultants, patient, and family members, as well as other required patient management activities. This time is exclusive of all separately billable procedures, and teaching time and separate from and in addition to any other critical care service time. Please note the above document was generated using voice recognition software. It may contain grammatical, syntax or spelling errors. (2) COVID-19: (3) Multiple myeloma: History of Present Illness Attending Physician: Americo Allen DO History of Present Illness 65-year-old female with past medical history of multiple myeloma was admitted to hospital because of worsening shortness of breath. Patient was seen by Dr. Farooq on the floor on 07/19/2020. At that time she was needing 60 L at 60% FiO2 respiratory was not that fast. She is on lenalidomide as well as Velcade for her MM. Patient's COVID-19 was positive on 07/15/2020. Patient had a CTA done on 1214 which showed dense consolidative process bilateral lower lobe as well as groundglass opacities diffusely with central sparing. No PE Today I was called by Dr. Allen as she was breathing in the high 30s. She was changed to BiPAP At the time of examination patient was in low 30s on BiPAP with IPAP 14 and EPAP of 10. Saturation was 98%. I increase the EPAP to 10. Patient's respiratory rate went down into the high 20s. Patient was stating that she is not getting enough air. She denied any chest pain, occasional coughing. Denies any bringing up any phlegm. Denied any anxiety issues. Denied any nausea or vomiting. Patient was laying on the left side. Allergies Allergy/AdvReac Type Severity Reaction Status Date / Time diazepam [From Valium] AdvReac Severe Nausea Unverified 07/18/20 15:06 tramadol AdvReac Severe Nausea Unverified 07/18/20 15:06 codeine AdvReac Unknown NAUSEA AND Verified 07/18/20 15:06 VOMITING propoxyphene AdvReac Unknown NAUSEA AND Verified 07/18/20 15:06 VOMITING Sulfa (Sulfonamide AdvReac Unknown NAUSEA AND Verified 07/18/20 15:06 Antibiotics) VOMITING Home Medications Medication Instructions Recorded Confirmed Type fexofenadine 180 mg tablet 180 mg PO QAM PRN tab 05/04/19 07/18/20 History fish oil-dha-epa 1,200 mg-144 1 cap PO QAM cap 05/04/19 07/18/20 History mg-216 mg capsule fluticasone propionate 50 2 sprays INTRANASAL DAILY #1 gm 05/04/19 07/18/20 History mcg/actuation nasal spray,suspension glucosamine HCl 1,500 mg tablet 3,000 mg PO QPM tab 05/04/19 07/18/20 History naproxen sodium 220 mg capsule 220 mg PO UD PRN cap 05/04/19 07/18/20 History omeprazole magnesium 20 mg 20 mg PO QAM tab 05/04/19 07/18/20 History tablet,delayed release red yeast rice 600 mg tablet 600 mg PO BID tab 05/04/19 07/18/20 History epinephrine 0.3 mg/0.3 mL See Rx Instructions .ROUTE 01/17/20 07/18/20 Rx injection, auto-injector .COMPLEX #2 ea calcium carbonate-vitamin D3 1 tab PO QAM 07/18/20 07/18/20 History [Calcium + D] cholecalciferol (vitamin D3) 1,000 units PO QAM 07/18/20 07/18/20 History [Vitamin D3] lenalidomide [Revlimid] 25 mg PO QDL 07/18/20 07/18/20 History Patient History Medical History (Updated 07/19/20 @ 22:23 by Americo Allen DO) Allergic rhinitis Annual physical exam Chronic GERD Multinodular goiter Osteoarthritis of left knee Osteopenia Paraproteinemia Surgical History H/O arthroscopic knee surgery History of delivery History of laparoscopy History of tonsillectomy History of tubal ligation Family History Father Arthritis Heart disease Hypotension Vertigo Mother Heart disease Hyperlipidemia Hypertension Denies family history of Ovarian cancer Prostate cancer Breast cancer Colorectal cancer Social History Smoking Status: Never smoker Hx Alcohol Use: Yes Alcohol type: beer and wine Hx Substance Use: No Preferred Language: Tajik Communication Ability: Effective Intermediate Designer Required: No Beliefs That Will Affect Care: None Current Living Situation: Spouse Other Information That Helps Us Care for You: No Feels Safe at Home: Yes Safety Concerns: Feels Safe At This Time Assistive Devices: Oxygen - Continuous Review of Systems Review of Systems: All systems reviewed & are unremarkable except as noted in HPI & below Physical Exam Physical Exam: Constitutional: In respiratory distress HEENT: EOMI, PERRLA Respiratory system: Decreased air entry bilaterally, positive crackles bilateral lower lobes, no wheeze, no rhonchi CVS: S1-S2 positive, no murmurs or gallops Abdomen: Soft, nontender, nondistended, positive bowel sounds x4 Extremities: +2 pulses bilaterally radialis/ dorsalis pedis, no cyanosis, no edema Neuro: Awake alert oriented x3 Psych: Anxious G/U: No Anaya, nurse was about to put Anaya in Skin: no rashes, warm and dry Lymphatic: no cervical or axillary lymphadenopathy Results & Data Results & Data ([facility]) Vital Signs (Past 12 Hours) Vital Signs Temp Pulse Pulse Resp BP Pulse Ox 07/21/20 08:20 38 H 98 07/21/20 07:27 37.1 C 78 34 H 142/80 H 92 07/21/20 06:58 78 36 H 97 07/21/20 05:15 79 36 H 96 07/21/20 04:46 36.6 C 70 38 H 126/70 91 07/21/20 00:15 66 20 95 07/21/20 00:14 36.9 C 65 22 136/78 94 07/19/20 07:51 07/21/20 09:12 Coding Level of Care Code Critical Care 1st 30-74 mins Diagnoses Acute respiratory failure with hypoxia J96.01 COVID-19 U07.1 Multiple myeloma C90.00 Time Spent (min) 55
[2020-07-21] MEDS: DEXMEDETOMIDINE HCL 200 MCG in SODIUM CHLORIDE 0.9% 48 ML IV SCH ×2 (11:29→15:58)
[2020-07-21] MEDS: DOXYCYCLINE HYCLATE 100 MG in DEXTROSE 5% 100 ML IV SCH (11:59)
[2020-07-21] MEDS: POTASSIUM CHLORIDE / WTR 10 MEQ/100 ML PLCT IV SCH ×4 (12:38→16:19)
[2020-07-21 12:58] LABS: Magnesium 1.7 mg/dl (1.8-2.4); Phosphorus 3.2 mg/dl (2.5-4.9)
[2020-07-21] MEDS: MAGNESIUM SULFATE / D5W 1 GM/100 ML BAG IV SCH ×2 (15:26→17:32)
[2020-07-21] MEDS ORDERED: RAPID SEQUENCE INDUCTION BAG ONE (16:51)
[2020-07-21] MEDS ORDERED: PROPOFOL IV EMULSION 10 MG/ML 100 ML VIAL IV ONE (17:48)
--- NOTE | 2020-07-21 17:48 | Procedure Note ---
Procedure Note Date of Service July 21, 2020 INTUBATION PROCEDURE NOTE: Attending: Dr Catrachito Aguilar MD Patient was evaluated and plan to intubate was made for ventilatory failure. Sedative agent used: Etomidate 20 mg, lidocaine 100 mg Paralysis agent used: Rocuronium 50 mg Emergent consent was implied given patients rapidly declining clinical status and need for airway protection. The patient was prepared in the appropriate fashion. The patient was easily pre-oxygenated by using [id number] ventilation. With help of CMAC grade 2 vocal cords were visualized and 8 Micronesian ETT was introduced on third attempt to 23 cm at the lip. The stylette was removed and balloon was inflated with 10mL of air. Appropriate Colorimetric change was appreciated for at least 10 breaths. Bilateral chest rise and breath sounds were appreciated without air sounds in the epigastrium. Patient desaturated to 80s between the attempts but she always responded to bag mask. Anesthesia was called for backup and help with intubation. Patient tolerated the procedure well and there were no immediate complications. Chest Xray to follow for confirming placement. Coding CPT Codes Resuscitation - Resuscitation: 74531 Endotracheal Intubation, emergency ([id number]) [facility] [place] Procedure Codes (Charges) Resuscitation Resuscitation: 96193 Endotracheal Intubation, emergency
--- NOTE | 2020-07-21 17:48 | Procedure Note ---
Procedure Note Date of Service July 21, 2020 Procedure: Inserting ultrasound-guided central commercial lines manager: Dr. Catrachito Aguilar Indication: ARDS Consent: Emergent Anesthesia: 1% lidocaine without epinephrine local. Procedure: Consent was verified and timeout performed. Appropriate imaging studies were reviewed prior to the procedure. Under aseptic and sterile condition, right IJ vein was accessed under direct ultrasound guidance. Guidewire was confirmed to be within the lumen of vein with the help of ultrasound. Catheter was introduced via Seldinger technique. Guide a wire was removed. Good non-pulsatile blood flow was appreciated from all the ports. The catheter was placed at 16 cm and sut[address] in place. BioPatch was applied to the catheter and a sterile Tegaderm dressing was applied over the catheter with careful attention to sterility. Lung sliding was appreciated post procedure with the help ultrasound. Chest x-ray to follow Patient tolerated the procedure well. Blood loss: Less than 2 cc Complications: None Coding CPT Codes Tubes, Drains, and Vasc Access - Tubes, Drains, and Vasc Access: [id number] Place catheter in vein superior or inferior vena cava ([id number]) Tubes, Drains, and Vasc Access - Tubes, Drains, and Vasc Access: [id number] trasound Guidance For Vascular ([id number]) [facility] [place] Procedure Codes (Charges) Tubes, Drains, and Vasc Access Procedure 1: Tubes, Drains, and Vasc Access: [id number] Place catheter in vein superior or inferior vena cava Procedure 2: Tubes, Drains, and Vasc Access: [id number] Ultrasound Guidance For Vascular
--- NOTE | 2020-07-21 17:49 | Procedure Note ---
Procedure Note Date of Service July 21, 2020 ARTERIAL LINE PROCEDURE NOTE: Procedure: Arterial Line Placement Attending: Dr. Catrachito Aguilar MD Indication: Monitoring on Pressors Anesthesia: None Emergency consent was applied A time-out was completed verifying correct patient, procedure, site, positioning, and implant(s) or special equipment if applicable. Allens test was performed to ensure adequate perfusion. Patients left wrist was prepped and draped in the usual sterile fashion. Ultrasound guidance was used to aid needle placement. A 20g Arrow arterial line was introduced into the left radial artery. Catheter was threaded, and the needle was removed with appropriate pulsatile blood return. Good waveform was observed on the monitor. The patient tolerated the procedure well. Confirmation of placement with ultrasound. Images saved to medical record. Complications: None Blood Loss: Less than 2 cc Coding CPT Codes Tubes, Drains, and Vasc Access - Tubes, Drains, and Vasc Access: [id number] Insertion Catheter, Artery ([id number]) Tubes, Drains, and Vasc Access - Tubes, Drains, and Vasc Access: [id number] Ultrasound Guidance For Vascular ([id number]) [facility] [place] Codes (Charges) Tubes, Drains, and Vasc Access Procedure 1: Tubes, Drains, and Vasc Access: [id number] Insertion Catheter, Artery Procedure 2: Tubes, Drains, and Vasc Access: [id number] Ultrasound Guidance For Vascular
[2020-07-21] MEDS ORDERED: PROPOFOL BOLUS FROM BAG IV PRN (17:50)
[2020-07-21] MEDS ORDERED: ETOMIDATE 2 MG/ML 20 ML VIAL IV ONE (18:05)
[2020-07-21] MEDS ORDERED: ROCURONIUM BROMIDE 10 MG/ML 5 ML VIAL IV ONE ×3 (18:06→23:29)
[2020-07-21] MEDS ORDERED: LIDOCAINE 2% 20 MG/ML 5 ML SYR IV ONE (18:06)
[2020-07-21] MEDS: propofoL 1,000 MG/100 ML VIAL IV SCH (18:24)
[2020-07-21] MEDS: fentaNYL DRIP 1,250 MCG/250 ML BAG IV SCH (18:25)
[2020-07-21] MEDS: ICU ELECTROLYTE REPLACEMENT PROTOCOL SCH (19:15)
--- NOTE | 2020-07-21 19:50 | XRay Report ---
XR chest 1V portable CLINICAL HISTORY: Respiratory failure COMPARISON STUDY: 07/18/2020 FINDINGS: There has been interval placement of endotracheal tube 23 mm above the [place]. There is a r ight internal jugular catheter tip of which projects over the atriocaval junction. There is a nasogas tric tube which passes into the stomach. There is no pneumothorax. There are rather diffuse bilateral pulmonary airspace opacities.[ IMPRESSION: 1. Interval placement of a right internal jugular central venous catheter, endotracheal tube, nasogas tric tube. 2. No evidence of pneumothorax 3. Bilateral pulmonary airspace opacities ACT 112: Negative or not required by law. Electronically signed by: Gary Almeida M.D. 07/21/2020 7:49 PM
[2020-07-21 20:16] LABS: iSTAT Arterial Blood Gas HCO3 25 meg/L (19-24); iSTAT Arterial Blood Gas pCO2 40 mmHg (35-46); iSTAT Arterial Blood Gas pO2 76 mmHg (80-95); iSTAT Carbon Dioxide 26 mmol/L (24-31); iSTAT FiO2 60 %; iSTAT Site Art Line
[2020-07-21] MEDS: REMDESIVIR 100 MG in SODIUM CHLORIDE 0.9% 230 ML IV SCH (20:46)
[2020-07-21] MEDS ORDERED: CISATRACURIUM BESYLATE IV SOLN 2 MG/ML 10 ML VIAL IV STA (22:41)
[2020-07-21] MEDS ORDERED: CISATRACURIUM BESYLATE 40 MG in 0.9 % SODIUM CHLORIDE 80 ML IV SCH (22:45)
--- NOTE | 2020-07-21 23:29 | Communication Note ---
Date of Service: July 21, 2020 Following intubation patient still requiring high requirements of FiO2 and PEEP. Patient was proned at 2330 for which was present and patient underwent proning without complications. Oxygen saturation immediately improved after proning. Rocuronium was administered along with current sedation of fentanyl and propofol prior to proning. She is now on Nimbex drip. Plan for patient prone for 16 hours. We will follow up x-ray and ABG in a.m. Will wean vent as tolerated as oxygen saturation allows. CRITICAL CARE TIME - I have personally spent 25 minutes of critical care time in the direct management of this patient. This is a life/limb threatening event. This includes time spent evaluating patient, direct bedside care, chart review, placing orders, interpretation of diagnostic studies, discussion with consultants, patient, and family members, as well as other required patient management activities. This time is exclusive of all separately billable procedures, and teaching time and separate from and in addition to any other critical care service time. Coding Level of Care Code Critical Care tyree addt'l 30 min
[2020-07-21] MEDS ORDERED: ACETAMINOPHEN 65 ML IV PRN (23:53)
[2020-07-22] MEDS: SODIUM CHLORIDE 0.9% 10ML FLUSH IV SCH ×2 (00:02→19:56)
[2020-07-22] MEDS: CISATRACURIUM BESYLATE 40 MG in 0.9 % SODIUM CHLORIDE 80 ML IV SCH ×5 (00:03→19:33)
[2020-07-22] MEDS: DEXMEDETOMIDINE HCL 200 MCG in SODIUM CHLORIDE 0.9% 48 ML IV SCH ×6 (00:09→18:56)
[2020-07-22] MEDS: DOXYCYCLINE HYCLATE 100 MG in DEXTROSE 5% 100 ML IV SCH ×3 (00:09→22:45)
[2020-07-22] MEDS ORDERED: ACETAMINOPHEN 1,000 MG/100 ML VIAL IV PRN (00:15)
[2020-07-22 03:55] LABS: iSTAT Art Bld Gas pCO2 Correct 39 mmHg (35-46); iSTAT Art Bld Gas pH Corrected 7.444 (7.35-7.45); iSTAT Arterial Blood Gas HCO3 26 meg/L (19-24); iSTAT Arterial Blood Gas pCO2 36 mmHg (35-46); iSTAT Arterial Blood Gas pH 7.47 (7.35-7.45); iSTAT Arterial Blood Gas pO2 60 mmHg (80-95); iSTAT Arterial Blood Gas pO2 C 66; iSTAT Carbon Dioxide 27 mmol/L (24-31); iSTAT FiO2 50 %; iSTAT Hematocrit 30 % (37-47); iSTAT Hemoglobin 10.2 g/dl (12.0-16.0); iSTAT Potassium 3.7 mmol/L (3.3-5.0); iSTAT Site Art Line; iSTAT Sodium 139 mmol/L (135-144)
[2020-07-22] MEDS: propofoL 1,000 MG/100 ML VIAL IV SCH ×3 (05:25→19:43)
[2020-07-22] MEDS: NOREPINEPHRINE/D5W 8 MG/508 ML BAG IV SCH ×2 (07:08→19:14)
[2020-07-22 07:10] LABS: Basophils # (auto) 0.02 K/uL (0-0.2); Basophils % (auto) 0.2 %; Eosinophils # (auto) 0.05 K/uL (0-0.5); Eosinophils % (auto) 0.6 %; Hematocrit (blood only) 30.9 % (37-47); Hemoglobin 10.1 g/dL (12.0-16.0); Immature Granulocytes # (auto) 0.02 K/uL (0.00-0.02); Immature Granulocytes % (auto) 0.2 %; Lymphocytes # (auto) 0.87 K/uL (1.2-3.4); Lymphocytes % (auto) 10.7 %; Mean Corpuscular Hemoglobin 27.9 pg (25-34); Mean Corpuscular Hgb Conc 32.7 g/dL (32-36); Mean Corpuscular Volume 85.4 fL (80-100); Mean Platelet Volume 10.6 fL (7.4-10.4); Monocytes # (auto) 0.57 K/uL (0.11-0.59); Neutrophils # (auto) 6.61 K/uL (1.4-6.5); Neutrophils % (auto) 81.3 %; Platelet Count 187 K/uL (130-400); RDW Coefficient of Variation 15.2 % (11.5-14.5); RDW Standard Deviation 47.5 fL (36.4-46.3); Red Blood Count 3.62 M/uL (4.2-5.4); White Blood Count 8.14 K/uL (4.8-10.8)
[2020-07-22 07:44] LABS: Calcium 8.1 mg/dl (8.5-10.1); Creatinine Clr Calc Pharmacy 102.8 ml/min; Est GFR (African American) 118.5; Est GFR (Non-African American) 102.2; Magnesium 2.1 mg/dl (1.8-2.4); Phosphorus 2.7 mg/dl (2.5-4.9); Potassium 3.5 mmol/L (3.5-5.1)
[2020-07-22] MEDS: ENOXAPARIN INJ 40 MG/0.4 ML SYR SQ SCH ×2 (08:26→21:03)
[2020-07-22] MEDS: dexAMETHasone 6 MG in SYRINGE 0 ML IV SCH (08:27)
[2020-07-22] MEDS ORDERED: LANSOPRAZOLE 30 MG SOLTAB NG SCH (09:00)
[2020-07-22] MEDS: POTASSIUM CHLORIDE / WTR 20 MEQ/100 ML PLCT IV SCH ×2 (09:27→11:16)
[2020-07-22] MEDS: FAMOTIDINE 20 MG in SYRINGE 3 ML IV SCH ×2 (09:27→22:00)
[2020-07-22] MEDS: PANTOprazole 40 MG TAB PO SCH (09:28)
[2020-07-22] MEDS: ICU ELECTROLYTE REPLACEMENT PROTOCOL SCH ×2 (09:42→18:56)
[2020-07-22] MEDS: D5W AND 1/2NSS 1,000 ML IV SCH (09:58)
--- NOTE | 2020-07-22 10:03 | Hospitalist Progress Note ---
Date of Service July 22, 2020 Assessment & Plan (1) COVID-19: Dexamethasone 6mg IV daily for 10 days, day 5 5 days remdesivir, completed 07/22 Will defer convalescent plasma as she presented day 6 of illness Isolation precautions with airborne and droplet patient now intubated and on mechanical ventilation, prone last night into today management per blanket maker (2) Acute respiratory failure with hypoxia: Tachypneic and hypoxic on presentation CT chest negative for PE required high flow nasal canula for two days rapidly deteriorated morning of 07/21, required BIPAP moved to ICU status, placed on Precedex but still working hard to breathe intubated in the evening on 07/21, placed prone, saturations improved, less FiO2 and high PEEP (3) Chronic GERD: Switch omeprazole for pantoprazole as per hospital formulary. (4) Multiple myeloma: Discussed with Dr Conner. Will initially hold Revlimid per his advice he will follow up with patient in the clinic (5) DVT prophylaxis: Lovenox 40mg SQ BID (6) Hypokalemia: 3.2 on admission, up to 3.4 today replaced with 20mEq BID will now be on ICU electrolyte replacement protocol Admission and Anticipated Discharge Date Admission Date: July 18, 2020 Subjective patient intubated last night, turned prone at 2330 with immediate improvement in oxygenation PEEP is 10 this morning with FiO2 60% sedated with Propofol, Fentanyl, Nimbex labs this morning: WBC 8k, hb 10, plts 187 Cr 0.49 with stable electrolytes Review of Systems Review of Systems: Unobtainable due to endotracheal tube and Unobtainable due to reduced consciousness Physical Exam Constitutional: well developed and + mechanically ventilated (prone); no acute distress Neck: trachea midline, no thyromegaly Respiratory: symmetric chest movement (ventilated) Auscultation: lungs clear to auscultation bilaterally Cardiovascular: RRR, no murmur, no edema Gastrointestinal (Abdomen): normal bowel sounds, soft, nontender, no hepatosplenomegaly Skin: no rashes, warm and dry Neurologic: + obtunded; no focal motor deficits Psychiatric: Orientation: + not alert Lymphatic: no cervical or axillary lymphadenopathy Results & Data Results & Data ([facility]) Vital Signs (Past 12 Hours) Vital Signs Temp Pulse Pulse Resp BP BP BP 07/22/20 08:00 37.9 C H 73 25 H 121/56 L 102/65 07/22/20 07:35 78 25 H 07/22/20 07:30 38.0 C H 79 79 25 H 122/54 L 109/64 07/22/20 04:00 77 133/57 L 07/22/20 03:45 77 25 H 07/22/20 00:51 62 104/53 L 07/22/20 00:31 38.4 C H 78 99/65 L 07/22/20 00:30 38.4 C H 76 07/22/20 00:15 38.5 C H 77 07/22/20 00:00 38.5 C H 86 103/70 07/21/20 23:45 38.5 C H 85 110/67 07/21/20 23:35 79 25 H 07/21/20 23:31 38.6 C H 82 96/67 L 07/21/20 23:30 38.6 C H 79 07/21/20 23:15 38.5 C H 77 07/21/20 23:01 38.5 C H 77 87/60 L 07/21/20 23:00 38.5 C H 77 07/21/20 22:45 38.5 C H 78 07/21/20 22:31 38.4 C H 77 88/62 L 07/21/20 22:30 38.4 C H 78 07/21/20 22:15 38.3 C H 79 Pulse Ox Pulse Ox 07/22/20 08:00 96 07/22/20 07:35 97 07/22/20 07:30 97 97 07/22/20 04:00 07/22/20 03:45 93 07/22/20 00:51 07/22/20 00:31 94 07/22/20 00:30 94 07/22/20 00:15 93 07/22/20 00:00 95 07/21/20 23:45 07/21/20 23:35 93 07/21/20 23:31 93 07/21/20 23:30 93 07/21/20 23:15 93 07/21/20 23:01 93 07/21/20 23:00 93 07/21/20 22:45 93 07/21/20 22:31 96 07/21/20 22:30 96 12/21/20 22:15 96 Laboratory Results Laboratory Results - last 24 hr 07/21/20 07/21/20 07/21/20 09:05 09:12 09:15 WBC RBC Hgb POC Hgb Hct POC Hct MCV MCH MCHC RDW Std Deviation RDW Coeff of Fawn Plt Count MPV Immature Gran % (Auto) Neut % (Auto) Lymph % (Auto) [place] % (Auto) Eos % (Auto) Baso % (Auto) Neut # (Auto) Lymph # (Auto) [place] # (Auto) Eos # (Auto) Baso # (Auto) Immature Gran # (Auto) Sample Site POC pH POC pCO2 POC pO2 POC HCO3 POC Total CO2 POC Base Excess ABG pH (Temp Correct) ABG pCO2 (Temp Corrct POC ABG pO2 at Pt Temp POC ABG O2 Sat Keo Test O2 Delivery Device POC O2 Rate Minute Ventilation POC FiO2 Tidal Volume PEEP POC Sodium Sodium 141 POC Potassium Potassium 3.4 L Chloride 106 Carbon Dioxide 31 Anion Gap 4.0 BUN 18 Creatinine 0.65 Est Cr Clr Drug Dosing 78.1 Est GFR ( Amer) 108.0 Est GFR (Non-Af Amer) 93.2 BUN/Creatinine Ratio 28.6 H Glucose 94 POC Glucose Calcium 8.6 Phosphorus 3.2 Magnesium 1.7 L NT-Pro-B Natriuret Pep 390 Nasal Screen MRSA (PCR) Urine Legionella Ag Mycoplasma pneumon IgM Pending 07/21/20 07/21/20 07/21/20 12:06 13:54 14:57 WBC RBC Hgb POC Hgb Hct POC Hct MCV MCH MCHC RDW Std Deviation RDW Coeff of Fawn Plt Count MPV Immature Gran % (Auto) Neut % (Auto) Lymph % (Auto) [place] % (Auto) Eos % (Auto) Baso % (Auto) Neut # (Auto) Lymph # (Auto) [place] # (Auto) Eos # (Auto) Baso # (Auto) Immature Gran # (Auto) Sample Site POC pH POC pCO2 POC pO2 POC HCO3 POC Total CO2 POC Base Excess ABG pH (Temp Correct) ABG pCO2 (Temp Corrct POC ABG pO2 at Pt Temp POC ABG O2 Sat Keo Test O2 Delivery Device POC O2 Rate Minute Ventilation POC FiO2 Tidal Volume PEEP POC Sodium Sodium POC Potassium Potassium Chloride Carbon Dioxide Anion Gap BUN Creatinine Est Cr Clr Drug Dosing Est GFR ( Amer) Est GFR (Non-Af Amer) BUN/Creatinine Ratio Glucose POC Glucose 116 H Calcium Phosphorus Magnesium 2.0 NT-Pro-B Natriuret Pep Nasal Screen MRSA (PCR) Urine Legionella Ag Pending Mycoplasma pneumon IgM 07/21/20 07/21/20 07/21/20 19:21 19:30 19:59 WBC RBC Hgb POC Hgb Hct POC Hct MCV MCH MCHC RDW Std Deviation RDW Coeff of Fawn Plt Count MPV Immature Gran % (Auto) Neut % (Auto) Lymph % (Auto) [place] % (Auto) Eos % (Auto) Baso % (Auto) Neut # (Auto) Lymph # (Auto) [place] # (Auto) Eos # (Auto) Baso # (Auto) Immature Gran # (Auto) Sample Site Art Line POC pH 7.40 POC pCO2 40 POC pO2 76 L POC HCO3 25 H POC Total CO2 26 POC Base Excess 0.0 ABG pH (Temp Correct) ABG pCO2 (Temp Corrct POC ABG pO2 at Pt Temp POC ABG O2 Sat 95.0 Keo Test NA O2 Delivery Device Ventilator POC O2 Rate 25 Minute Ventilation 9.5 POC FiO2 60 Tidal Volume 380 PEEP 15 POC Sodium Sodium POC Potassium Potassium Chloride Carbon Dioxide Anion Gap BUN Creatinine Est Cr Clr Drug Dosing Est GFR ( Amer) Est GFR (Non-Af Amer) BUN/Creatinine Ratio Glucose POC Glucose 190 H Calcium Phosphorus Magnesium NT-Pro-B Natriuret Pep Nasal Screen MRSA (PCR) Negative Urine Legionella Ag Mycoplasma pneumon IgM 07/22/20 07/22/20 07/22/20 00:17 03:42 06:16 WBC RBC Hgb POC Hgb 10.2 L Hct POC Hct 30 L MCV MCH MCHC RDW Std Deviation RDW Coeff of Fawn Plt Count MPV Immature Gran % (Auto) Neut % (Auto) Lymph % (Auto) [place] % (Auto) Eos % (Auto) Baso % (Auto) Neut # (Auto) Lymph # (Auto) [place] # (Auto) Eos # (Auto) Baso # (Auto) Immature Gran # (Auto) Sample Site Art Line POC pH 7.47 H POC pCO2 36 POC pO2 60 L POC HCO3 26 H POC Total CO2 27 POC Base Excess 2.0 H ABG pH (Temp Correct) 7.444 ABG pCO2 (Temp Corrct 39 POC ABG pO2 at Pt Temp 66 POC ABG O2 Sat 92.0 Keo Test NA O2 Delivery Device Ventilator POC O2 Rate 25 Minute Ventilation POC FiO2 50 Tidal Volume 380 PEEP 10 POC Sodium 139 Sodium POC Potassium 3.7 Potassium Chloride Carbon Dioxide Anion Gap BUN Creatinine Est Cr Clr Drug Dosing Est GFR ( Amer) Est GFR (Non-Af Amer) BUN/Creatinine Ratio Glucose POC Glucose 89 84 Calcium Phosphorus Magnesium NT-Pro-B Natriuret Pep Nasal Screen MRSA (PCR) Urine Legionella Ag Mycoplasma pneumon IgM 07/22/20 07/22/20 06:50 06:50 WBC 8.14 RBC 3.62 L Hgb 10.1 L POC Hgb Hct 30.9 L POC Hct MCV 85.4 MCH 27.9 MCHC 32.7 RDW Std Deviation 47.5 H RDW Coeff of Fawn 15.2 H Plt Count 187 MPV 10.6 H Immature Gran % (Auto) 0.2 Neut % (Auto) 81.3 Lymph % (Auto) 10.7 [place] % (Auto) 7.0 Eos % (Auto) 0.6 Baso % (Auto) 0.2 Neut # (Auto) 6.61 H Lymph # (Auto) 0.87 L [place] # (Auto) 0.57 Eos # (Auto) 0.05 Baso # (Auto) 0.02 Immature Gran # (Auto) 0.02 Sample Site POC pH POC pCO2 POC pO2 POC HCO3 POC Total CO2 POC Base Excess ABG pH (Temp Correct) ABG pCO2 (Temp Corrct POC ABG pO2 at Pt Temp POC ABG O2 Sat Keo Test O2 Delivery Device POC O2 Rate Minute Ventilation POC FiO2 Tidal Volume PEEP POC Sodium Sodium 142 POC Potassium Potassium 3.5 Chloride 108 H Carbon Dioxide 28 Anion Gap 6.0 BUN 21 H Creatinine 0.49 L Est Cr Clr Drug Dosing 102.8 Est GFR ( Amer) 118.5 Est GFR (Non-Af Amer) 102.2 BUN/Creatinine Ratio 43.0 H Glucose 87 POC Glucose Calcium 8.1 L Phosphorus 2.7 Magnesium 2.1 NT-Pro-B Natriuret Pep Nasal Screen MRSA (PCR) Urine Legionella Ag Mycoplasma pneumon IgM Medications Administered Current Inpatient Medications Enoxaparin Sodium (Enoxaparin Inj 40 Mg/0.4 Ml Syr) 40 mg SQ BID [facility] Stop: 08/17/20 22:14 Last Admin: 07/22/20 08:26 Dose: 40 mg Documented by: Fentanyl Citrate (Fentanyl Bolus From Bag) 50 mcg IV Q60M PRN PRN Reason: Pain or Agitation Stop: 08/04/20 17:49 Remdesivir 100 mg/ Sodium (Chloride) 250 mls @ 250 mls/hr IV Q24H [facility]; Protocol Stop: 07/22/20 20:59 Last Infusion: 07/21/20 21:46 Dose: Infused Documented by: Dexamethasone 6 mg/ Syringe 1.5 mls @ 1 mls/min IV QAM [facility] Stop: 07/28/20 08:59 Last Admin: 07/22/20 08:27 Dose: 1 mls/min Documented by: Dexmedetomidine HCl 200 mcg/ (Sodium Chloride) 50 mls @ 13.125 mls/hr IV .Q3H49M [facility]; Protocol Stop: 07/25/20 10:59 Last Admin: 07/22/20 08:25 Dose: Not Given Documented by: Doxycycline Hyclate 100 mg/ (Dextrose) 110 mls @ 55 mls/hr IV Q12H [facility] Stop: 07/26/20 01:29 Last Infusion: 07/22/20 02:54 Dose: Infused Documented by: Propofol (Diprivan) 1,000 mg in 100 mls @ 9 mls/hr IV .Q11H7M [facility]; Protocol Stop: 07/24/20 17:59 Last Admin: 07/22/20 05:25 Dose: 20 mcg/kg/min, 9 mls/hr Documented by: Fentanyl Citrate (Fentanyl Drip) 1,250 mcg in 250 mls @ 5 mls/hr IV .Q50H [facility]; Protocol Stop: 08/04/20 17:59 Last Admin: 07/21/20 18:25 Dose: 25 mcg/hr, 5 mls/hr Documented by: Norepinephrine Bitartrate (Levophed/D5w) 8 mg in 508 mls @ 14.288 mls/hr IV .Q24H [facility]; Protocol Stop: 08/20/20 19:44 Last Admin: 07/22/20 07:08 Dose: Not Given Documented by: Cisatracurium Besylate 40 mg/ (Sodium Chloride) 100 mls @ 5.625 mls/hr IV .[id number] [facility]; Protocol Stop: 08/20/20 23:29 Last Titration: 07/22/20 08:00 Dose: 0.5 mcg/kg/min, 5.6 mls/hr Documented by: Acetaminophen (Ofirmev) 1,000 mg in 100 mls @ 400 mls/hr IV Q8H PRN; Protocol PRN Reason: Fever Stop: 07/25/20 00:14 Famotidine 20 mg/ Syringe 5 mls @ 2.5 mls/min IV BID [facility] Stop: 08/21/20 09:14 Last Admin: 07/22/20 09:27 Dose: 2.5 mls/min Documented by: Potassium Chloride (K Buddy / Wtr) 20 meq in 100 mls @ 50 mls/hr IV Q2H [facility] Stop: 07/22/20 13:14 Last Admin: 07/22/20 09:27 Dose: 50 mls/hr Documented by: Dextrose/Sodium Chloride (D5w And 1/2nss) 1,000 mls @ 50 mls/hr IV .Q20H [facility] Stop: 08/21/20 09:59 Last Admin: 07/22/20 09:58 Dose: 50 mls/hr Documented by: Miscellaneous (Icu Electrolyte Replacement Protocol) 1 ea N/A BID@18 [facility]; Protocol Stop: 07/28/20 17:59 Last Admin: 07/22/20 09:42 Dose: 1 ea Documented by: Ondansetron HCl (Ondansetron Inj 2 Mg/Ml 2 Ml Vial) 4 mg IV Q6H PRN PRN Reason: Nausea Stop: 08/17/20 20:33 Pantoprazole Sodium (Pantoprazole 40 Mg Tab) 40 mg PO QAM [facility] Stop: 08/18/20 08:59 Last Admin: 07/22/20 09:28 Dose: Not Given Documented by: Propofol (Propofol Bolus From Bag) 20 mg IV Q5M PRN PRN Reason: Sedation Stop: 07/24/20 17:49 Sodium Chloride (Sodium Chloride 0.9% 10ml Flush) 30 ml IV Q24H [facility] Stop: 07/22/20 20:01 Last Admin: 07/22/20 00:02 Dose: 30 ml Documented by: PG Care Time/CCT Total # of Minutes Spent Total Time Spent with Patient: Total time spent is greater than 50% in coordination of care (as documented) at patient's floor/unit and/or counseling patient: Coding Level of Care Code 35163 Subseq Hosp Care Lvl 3 Diagnoses COVID-19 U07.1 Acute respiratory failure with hypoxia J96.01 Chronic GERD K21.9 Multiple myeloma C90.00 DVT prophylaxis Z29.9 Hypokalemia E87.6
[2020-07-22] MEDS: fentaNYL DRIP 1,250 MCG/250 ML BAG IV SCH (11:00)
[2020-07-22] MEDS ORDERED: FUROSEMIDE 40 MG in SYRINGE 0 ML IV ONE (12:30)
--- NOTE | 2020-07-22 17:29 | Critical Care Progress Note ---
Date of Service July 22, 2020 Assessment & Plan (1) Acute respiratory failure with hypoxia: CTA 07/18/2020: Consolidative process dense bilateral lower lobes, diffuse groundglass opacities appreciated bilaterally upper and lower lobes with central scarring. Mild mediastinal lymphadenopathy. No signs of pulmonary embolus Patient had PET/CT done in October 2018 which did not show any interstitial thickening or any infiltrative changes at that time. -- VDRF Secondary to multilobar pneumonia secondary to COVID-19 in an immunosuppressed patient Continue with ventilatory support Keep RASS -1 Daily sedation holidays and SBT's Continue with ARDS Continue with lung protective ventilation High PEEP, low tidal volume to keep Plateau < 30 with permissive hypercapnea if need be. Monitor ABGs Procalcitonin has been negative x2, patient is immunosuppressed though Component of pneumonitis from Velcade is also a possibility. She is already getting dexamethasone which should take care of it. 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 Plan: In/out: Negative 74, urine output 1325 Patient is on PEEP of 10, 50% saturating well. We will try to gradually titrate down FiO2 to 40% and then try to go down on PEEP if possible. Patient's urine output was decreased a little bit we will give a dose of Lasix. Potassium was 3.5 today we will give IV 40 of KCl. Continue with paralysis for at least 48 hours. I have personally spent 37 minutes of critical care time in the direct management of this patient. This is a life/limb threatening event. This includes time spent evaluating patient, direct bedside care, chart review, placing orders, interpretation of diagnostic studies, discussion with consultants, patient, and family members, as well as other required patient management activities. This time is exclusive of all separately billable procedures, and teaching time and separate from and in addition to any other critical care service time. Please note the above document was generated using voice recognition software. It may contain grammatical, syntax or spelling errors. (2) COVID-19: (3) Multiple myeloma: Admission and Anticipated Discharge Date Admission Date: July 18, 2020 Subjective Patient seen and examined at bedside. Patient was prone. Paralyzed with Nimbex. On propofol and fentanyl. Map greater than 65. Breathing with plan. Saturating 94% on 60% T-max 38.2 Review of Systems Review of Systems: Unobtainable due to mental health condition and Unobtainable due to endotracheal tube Physical Exam Physical Exam: Constitutional: In respiratory distress HEENT: PERRLA, positive ETT Respiratory system: Decreased air entry bilaterally, positive crackles bilateral lower lobes, no wheeze, no rhonchi CVS: S1-S2 positive, no murmurs or gallops Abdomen: Soft, nontender, nondistended, positive bowel sounds x4 Extremities: +2 pulses bilaterally radialis/ dorsalis pedis, no cyanosis, no edema Neuro: Paralyzed, sedated Psych: Unable to assess G/U: Positive Anaya Skin: no rashes, warm and dry Lymphatic: no cervical or axillary lymphadenopathy Results & Data Results & Data ([facility]) Vital Signs (Past 12 Hours) Vital Signs Temp Pulse Pulse Resp BP BP BP 07/22/20 17:00 36.9 C 64 25 H 90/62 L 07/22/20 16:00 37.0 C 64 25 H 93/61 L 07/22/20 15:57 67 07/22/20 15:49 69 25 H 07/22/20 15:00 37.0 C 71 25 H 105/67 07/22/20 14:00 37.3 C 66 25 H 88/59 L 07/22/20 13:00 37.5 C 70 109/71 07/22/20 12:05 72 25 H 07/22/20 12:00 37.6 C H 73 25 H 108/72 07/22/20 11:00 37.7 C H 72 25 H 111/69 07/22/20 10:00 37.7 C H 79 25 H 109/64 07/22/20 09:00 37.7 C H 76 25 H 106/69 07/22/20 08:00 37.9 C H 73 25 H 121/56 L 102/65 07/22/20 07:35 78 25 H 07/22/20 07:30 38.0 C H 78 79 25 H 122/54 L 109/64 Pulse Ox Pulse Ox 07/22/20 17:00 96 07/22/20 16:00 97 07/22/20 15:57 07/22/20 15:49 96 07/22/20 15:00 96 07/22/20 14:00 96 07/22/20 13:00 96 07/22/20 12:05 92 07/22/20 12:00 91 07/22/20 11:00 95 07/22/20 10:00 94 07/22/20 09:00 97 07/22/20 08:00 96 07/22/20 07:35 97 07/22/20 07:30 97 97 07/22/20 06:50 07/22/20 06:50 Coding Level of Care Code Critical Care 1st 30-74 mins Diagnoses Acute respiratory failure with hypoxia J96.01 COVID-19 U07.1 Multiple myeloma C90.00 Time Spent (min) 37
[2020-07-22] MEDS: REMDESIVIR 100 MG in SODIUM CHLORIDE 0.9% 230 ML IV SCH (19:55)
--- NOTE | 2020-07-22 20:04 | Communication Note ---
Date of Service: July 22, 2020 Critical CARE addendum: Patient was proned for approximately 16 hours. I was present bedside when the patient was made supine. Patient was getting good tidal volume at the end of repositioning. Patient tolerated the procedure well. Patient did desaturate to 80s at the end of the procedure. FiO2 was increased. And she responded well to it. Please note the above document was generated using voice recognition software. It may contain grammatical, syntax or spelling errors.Any formal questions or concerns about the content, text or information contained within the body of this dictation should be directly addressed to the provider for clarification. Coding Level of Care Code Critical Care ea addt'l 30 min Time Spent (min) 23
[2020-07-23] MEDS: CISATRACURIUM BESYLATE 40 MG in 0.9 % SODIUM CHLORIDE 80 ML IV SCH ×5 (00:02→14:55)
[2020-07-23] MEDS: fentaNYL DRIP 1,250 MCG/250 ML BAG IV SCH ×2 (02:22→18:05)
[2020-07-23] MEDS: D5W AND 1/2NSS 1,000 ML IV SCH ×2 (03:26→23:29)
[2020-07-23 04:16] LABS: iSTAT Art Bld Gas pCO2 Correct 34 mmHg (35-46); iSTAT Art Bld Gas pH Corrected 7.501 (7.35-7.45); iSTAT Arterial Blood Gas HCO3 27 meg/L (19-24); iSTAT Arterial Blood Gas pCO2 34 mmHg (35-46); iSTAT Arterial Blood Gas pH 7.51 (7.35-7.45); iSTAT Arterial Blood Gas pO2 53 mmHg (80-95); iSTAT Arterial Blood Gas pO2 C 54; iSTAT Carbon Dioxide 28 mmol/L (24-31); iSTAT FiO2 55 %; iSTAT Hematocrit 32 % (37-47); iSTAT Hemoglobin 10.9 g/dl (12.0-16.0); iSTAT Potassium 3.2 mmol/L (3.3-5.0); iSTAT Site Art Line; iSTAT Sodium 137 mmol/L (135-144)
[2020-07-23 06:24] LABS: Basophils # (auto) 0.01 K/uL (0-0.2); Basophils % (auto) 0.1 %; Eosinophils # (auto) 0.01 K/uL (0-0.5); Eosinophils % (auto) 0.1 %; Immature Granulocytes # (auto) 0.03 K/uL (0.00-0.02); Immature Granulocytes % (auto) 0.3 %; Lymphocytes # (auto) 0.89 K/uL (1.2-3.4); Mean Corpuscular Hemoglobin 27.5 pg (25-34); Mean Corpuscular Hgb Conc 32.3 g/dL (32-36); Mean Corpuscular Volume 85.4 fL (80-100); Mean Platelet Volume 10.8 fL (7.4-10.4); Monocytes # (auto) 0.51 K/uL (0.11-0.59); Monocytes % (auto) 5.7 %; Neutrophils # (auto) 7.42 K/uL (1.4-6.5); Neutrophils % (auto) 83.8 %; Platelet Count 198 K/uL (130-400); RDW Coefficient of Variation 15.1 % (11.5-14.5); RDW Standard Deviation 47.3 fL (36.4-46.3); Red Blood Count 3.63 M/uL (4.2-5.4); White Blood Count 8.87 K/uL (4.8-10.8)
[2020-07-23 06:53] LABS: BUN Creatinine Ratio 38.8 (10-20); Calcium 7.8 mg/dl (8.5-10.1); Creatinine Clr Calc Pharmacy 100.8 ml/min; Est GFR (African American) 117.7; Est GFR (Non-African American) 101.6; Magnesium 1.8 mg/dl (1.8-2.4); Potassium 3.2 mmol/L (3.5-5.1)
[2020-07-23 06:58] LABS: Phosphorus 3.6 mg/dl (2.5-4.9)
[2020-07-23] MEDS: dexAMETHasone 6 MG in SYRINGE 0 ML IV SCH (08:10)
[2020-07-23] MEDS: ENOXAPARIN INJ 40 MG/0.4 ML SYR SQ SCH ×2 (08:10→20:23)
[2020-07-23] MEDS: FAMOTIDINE 20 MG in SYRINGE 3 ML IV SCH ×2 (08:13→20:24)
[2020-07-23] MEDS: ICU ELECTROLYTE REPLACEMENT PROTOCOL SCH ×2 (09:33→19:49)
--- NOTE | 2020-07-23 09:50 | XRay Report ---
XR chest 1V portable CLINICAL HISTORY: Respiratory failure. COMPARISON STUDY: Chest CT T July 18, 2020. Chest radiograph July 21, 2020. FINDINGS: The tip of the endotracheal tube is 2.6 cm above the [place]. Nasogastric tube projects with in the chest and upper abdomen however this portion of the tube may be outside the patient. The tip i s not visualized. There is no pneumothorax. Tip of right internal jugular central line projects over the cavoatrial junction. There are trace bilateral pleural effusions. Cardiomediastinal silhouette is stable. Left basilar consolidation has slightly increased. Extensive additional bilateral airspace o pacities persist. IMPRESSION: 1. Tip of endotracheal tube 2.6 cm above the [place]. 2. Uncertain position of the nasogastric tube on this exam, as described above. 3. Increase in left basilar consolidation with persistent bilateral airspace opacities consistent wit h an infectious process. 4. No pneumothorax. Trace bilateral pleural effusions. ACT 112: Negative or not required by law. Electronically signed by: Nas Shaffer M.D. 07/23/2020 9:49 AM
[2020-07-23] MEDS: POTASSIUM CHLORIDE / WTR 20 MEQ/100 ML PLCT IV SCH ×3 (10:25→14:30)
[2020-07-23] MEDS: propofoL 1,000 MG/100 ML VIAL IV SCH ×2 (11:21→18:06)
[2020-07-23] MEDS: DOXYCYCLINE HYCLATE 100 MG in DEXTROSE 5% 100 ML IV SCH ×2 (11:28→23:24)
[2020-07-23] MEDS ORDERED: MAGNESIUM SULFATE / D5W 1 GM/100 ML BAG IV ONE (12:15)
[2020-07-23] MEDS ORDERED: FUROSEMIDE 40 MG in SYRINGE 0 ML IV SCH (13:45)
--- NOTE | 2020-07-23 14:55 | Critical Care Progress Note ---
Date of Service July 23, 2020 Assessment & Plan (1) Acute respiratory failure with hypoxia: CTA 07/18/2020: Consolidative process dense bilateral lower lobes, diffuse groundglass opacities appreciated bilaterally upper and lower lobes with central scarring. Mild mediastinal lymphadenopathy. No signs of pulmonary embolus Patient had PET/CT done in October 2018 which did not show any interstitial thickening or any infiltrative changes at that time. -- VDRF Secondary to multilobar pneumonia secondary to COVID-19 in an immunosuppressed patient Continue with ventilatory support Keep RASS -1 Daily sedation holidays and SBT's Continue with ARDS Continue with lung protective ventilation High PEEP, low tidal volume to keep Plateau < 30 with permissive hypercapnea if need be. Monitor ABGs Procalcitonin has been negative x2, patient is immunosuppressed Component of pneumonitis from Velcade is also a possibility. She is already getting dexamethasone which should take care of it. 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 Went down on the respiratory rate Patient made good amount of urine with Lasix yesterday. If there is decrease in urine output later today then give 1 more dose of Lasix. Hypokalemia being replaced I will try to go up on the sedation and take paralytics off of the patient is not fighting the vent. We will try to gradually go down on PEEP if possible. If you are able to take the patient off paralytics we will start the patient on tube feeds. I have personally spent 38 minutes of critical care time in the direct management of this patient. This is a life/limb threatening event. This includes time spent evaluating patient, direct bedside care, chart review, placing orders, interpretation of diagnostic studies, discussion with consultants, patient, and family members, as well as other required patient management activities. This time is exclusive of all separately billable procedures, and teaching time and separate from and in addition to any other critical care service time. Please note the above document was generated using voice recognition software. It may contain grammatical, syntax or spelling errors. (2) COVID-19: (3) Multiple myeloma: Admission and Anticipated Discharge Date Admission Date: July 18, 2020 Subjective Patient seen and examined at bedside. No acute distress. No adverse events overnight. Patient was on PEEP of 10 and FiO2 50% of the time of examination. She was on propofol, fentanyl and Nimbex. Afebrile. Review of Systems Review of Systems: Unobtainable due to endotracheal tube Physical Exam Physical Exam: Constitutional: No acute distress HEENT: PERRLA, positive ETT Respiratory system: Decreased air entry bilaterally, positive crackles bilateral lower lobes, no wheeze, no rhonchi CVS: S1-S2 positive, no murmurs or gallops Abdomen: Soft, nontender, nondistended, positive bowel sounds x4 Extremities: +2 pulses bilaterally radialis/ dorsalis pedis, no cyanosis, no edema Neuro: Paralyzed, sedated Psych: Unable to assess G/U: Positive Anaya Skin: no rashes, warm and dry Lymphatic: no cervical or axillary lymphadenopathy Results & Data Results & Data ([facility]) Vital Signs (Past 12 Hours) Vital Signs Temp Pulse Resp BP Pulse Ox 07/23/20 12:04 37.3 C 78 136/86 96 07/23/20 12:00 37.3 C 76 16 133/68 95 07/23/20 11:51 77 16 95 07/23/20 11:00 37.3 C 77 130/94 93 07/23/20 10:00 37.2 C 72 16 136/84 91 07/23/20 09:00 37.0 C 74 20 119/74 91 07/23/20 08:59 37.0 C 75 91 07/23/20 08:41 76 20 92 07/23/20 08:00 37.1 C 72 20 152/67 H 92 07/23/20 07:00 37.3 C 72 20 129/86 92 07/23/20 06:00 37.4 C 69 92 07/23/20 05:34 37.5 C 72 96/64 L 91 07/23/20 05:04 37.5 C 68 112/75 91 07/23/20 04:34 37.4 C 72 114/75 91 07/23/20 04:04 37.4 C 79 131/96 89 L 07/23/20 04:00 69 07/23/20 03:58 82 25 H 90 07/23/20 03:34 37.3 C 75 121/75 89 L 07/23/20 03:04 37.3 C 82 142/100 H 91 07/23/20 06:04 07/23/20 06:04 Coding Level of Care Code Critical Care 1st 30-74 mins Diagnoses Acute respiratory failure with hypoxia J96.01 COVID-19 U07.1 Multiple myeloma C90.00 Time Spent (min) 38
[2020-07-23 19:30] LABS: BUN Creatinine Ratio 29.7 (10-20); Calcium 8.6 mg/dl (8.5-10.1); Creatinine Clr Calc Pharmacy 72.7 ml/min; Est GFR (African American) 105.4; Est GFR (Non-African American) 90.9; Potassium 4.5 mmol/L (3.5-5.1)
--- NOTE | 2020-07-23 22:09 | Hospitalist Progress Note ---
Date of Service July 23, 2020 Assessment & Plan (1) COVID-19: Dexamethasone 6mg IV daily for 10 days, day 6 5 days remdesivir, completed 07/22 Will defer convalescent plasma as she presented day 6 of illness Isolation precautions with airborne and droplet patient now intubated and on mechanical ventilation, supine today management per career resource specialist (2) Acute respiratory failure with hypoxia: Tachypneic and hypoxic on presentation CT chest negative for PE required high flow nasal canula for two days rapidly deteriorated morning of 07/21, required BIPAP moved to ICU status, placed on Precedex but still working hard to breathe intubated in the evening on 07/21, placed prone, saturations improved, less FiO2 and high PEEP now stable supine, paralytics off, management per career resource specialist (3) Chronic GERD: Switch omeprazole for pantoprazole as per hospital formulary. (4) Multiple myeloma: Discussed with Dr Conner. Will initially hold Revlimid per his advice he will follow up with patient in the clinic (5) DVT prophylaxis: Lovenox 40mg SQ BID (6) Hypokalemia: 3.2 on admission, up to 4.5 today will now be on ICU electrolyte replacement protocol Admission and Anticipated Discharge Date Admission Date: July 18, 2020 Subjective patient remains on ventilator PEEP is 10, pH of 7.5 on ABG, RR lowered responding well to Lasix labs reviewed discussed with Dr. Aguilar Review of Systems Review of Systems: Unobtainable due to endotracheal tube and Unobtainable due to reduced consciousness Physical Exam Constitutional: WD/WN, vitals as above well developed and + mechanically ventilated (supine); no acute distress Neck: trachea midline, no thyromegaly Respiratory: symmetric chest movement (ventilated) Auscultation: lungs clear to auscultation bilaterally Cardiovascular: RRR, no murmur, no edema Gastrointestinal (Abdomen): normal bowel sounds, soft, nontender, no hepatosplenomegaly Musculoskeletal: no cyanosis or clubbing, extremities motor strength 5/5 Skin: no rashes, warm and dry Neurologic: + obtunded; no focal motor deficits Psychiatric: Orientation: + not alert Lymphatic: no cervical or axillary lymphadenopathy Results & Data Results & Data ([facility]) Vital Signs (Past 12 Hours) Vital Signs Temp Pulse Resp BP Pulse Ox 07/23/20 20:30 68 16 88 L 07/23/20 20:00 68 95/53 L 07/23/20 19:30 37.2 C 68 16 91/58 L 91 07/23/20 19:23 70 16 91 07/23/20 18:00 37.4 C 73 16 89/60 L 92 07/23/20 17:00 37.4 C 82 16 117/63 92 07/23/20 16:07 82 19 91 07/23/20 16:00 37.2 C 86 16 113/76 91 07/23/20 15:00 37.1 C 85 112/68 93 07/23/20 14:00 37.1 C 71 110/69 94 07/23/20 13:00 37.2 C 77 135/84 96 07/23/20 12:04 37.3 C 78 136/86 96 07/23/20 12:00 37.3 C 76 16 133/68 95 07/23/20 11:51 77 16 95 07/23/20 11:00 37.3 C 77 130/94 93 Laboratory Results Laboratory Results - last 24 hr 07/21/20 07/21/20 07/22/20 09:15 13:54 23:59 WBC RBC Hgb POC Hgb Hct POC Hct MCV MCH MCHC RDW Std Deviation RDW Coeff of Fawn Plt Count MPV Immature Gran % (Auto) Neut % (Auto) Lymph % (Auto) [place] % (Auto) Eos % (Auto) Baso % (Auto) Neut # (Auto) Lymph # (Auto) [place] # (Auto) Eos # (Auto) Baso # (Auto) Immature Gran # (Auto) Sample Site POC pH POC pCO2 POC pO2 POC HCO3 POC Total CO2 POC Base Excess ABG pH (Temp Correct) ABG pCO2 (Temp Corrct POC ABG pO2 at Pt Temp POC ABG O2 Sat Keo Test O2 Delivery Device POC O2 Rate Minute Ventilation POC FiO2 Tidal Volume PEEP POC Sodium Sodium POC Potassium Potassium Chloride Carbon Dioxide Anion Gap BUN Creatinine Est Cr Clr Drug Dosing Est GFR ( Amer) Est GFR (Non-Af Amer) BUN/Creatinine Ratio Glucose POC Glucose 122 H Calcium Phosphorus Magnesium Procalcitonin Urine Legionella Ag SEE NOTE Mycoplasma pneumon IgM 88 07/23/20 07/23/20 07/23/20 04:01 04:27 06:04 WBC 8.87 RBC 3.63 L Hgb 10.0 L POC Hgb 10.9 L Hct 31.0 L POC Hct 32 L MCV 85.4 MCH 27.5 MCHC 32.3 RDW Std Deviation 47.3 H RDW Coeff of Fawn 15.1 H Plt Count 198 MPV 10.8 H Immature Gran % (Auto) 0.3 Neut % (Auto) 83.8 Lymph % (Auto) 10.0 [place] % (Auto) 5.7 Eos % (Auto) 0.1 Baso % (Auto) 0.1 Neut # (Auto) 7.42 H Lymph # (Auto) 0.89 L [place] # (Auto) 0.51 Eos # (Auto) 0.01 Baso # (Auto) 0.01 Immature Gran # (Auto) 0.03 H Sample Site Art Line POC pH 7.51 H* POC pCO2 34 L POC pO2 53 L POC HCO3 27 H POC Total CO2 28 POC Base Excess 4.0 H ABG pH (Temp Correct) 7.501 H* ABG pCO2 (Temp Corrct 34 L POC ABG pO2 at Pt Temp 54 POC ABG O2 Sat 90.0 Keo Test NA O2 Delivery Device Ventilator POC O2 Rate 25 Minute Ventilation 9.5 POC FiO2 55 Tidal Volume 380 PEEP 10 POC Sodium 137 Sodium POC Potassium 3.2 L Potassium Chloride Carbon Dioxide Anion Gap BUN Creatinine Est Cr Clr Drug Dosing Est GFR ( Amer) Est GFR (Non-Af Amer) BUN/Creatinine Ratio Glucose POC Glucose 121 H Calcium Phosphorus Magnesium Procalcitonin Urine Legionella Ag Mycoplasma pneumon IgM 07/23/20 07/23/20 07/23/20 06:04 06:04 12:02 WBC RBC Hgb POC Hgb Hct POC Hct MCV MCH MCHC RDW Std Deviation RDW Coeff of Fawn Plt Count MPV Immature Gran % (Auto) Neut % (Auto) Lymph % (Auto) [place] % (Auto) Eos % (Auto) Baso % (Auto) Neut # (Auto) Lymph # (Auto) [place] # (Auto) Eos # (Auto) Baso # (Auto) Immature Gran # (Auto) Sample Site POC pH POC pCO2 POC pO2 POC HCO3 POC Total CO2 POC Base Excess ABG pH (Temp Correct) ABG pCO2 (Temp Corrct POC ABG pO2 at Pt Temp POC ABG O2 Sat Keo Test O2 Delivery Device POC O2 Rate Minute Ventilation POC FiO2 Tidal Volume PEEP POC Sodium Sodium 141 POC Potassium Potassium 3.2 L Chloride 106 Carbon Dioxide 27 Anion Gap 8.0 BUN 19 H Creatinine 0.50 L Est Cr Clr Drug Dosing 100.8 Est GFR ( Amer) 117.7 Est GFR (Non-Af Amer) 101.6 BUN/Creatinine Ratio 38.8 H Glucose 109 H POC Glucose 155 H Calcium 7.8 L Phosphorus 3.6 Magnesium 1.8 Procalcitonin 0.06 Urine Legionella Ag Mycoplasma pneumon IgM 07/23/20 07/23/20 18:00 18:34 WBC RBC Hgb POC Hgb Hct POC Hct MCV MCH MCHC RDW Std Deviation RDW Coeff of Fawn Plt Count MPV Immature Gran % (Auto) Neut % (Auto) Lymph % (Auto) [place] % (Auto) Eos % (Auto) Baso % (Auto) Neut # (Auto) Lymph # (Auto) [place] # (Auto) Eos # (Auto) Baso # (Auto) Immature Gran # (Auto) Sample Site POC pH POC pCO2 POC pO2 POC HCO3 POC Total CO2 POC Base Excess ABG pH (Temp Correct) ABG pCO2 (Temp Corrct POC ABG pO2 at Pt Temp POC ABG O2 Sat Keo Test O2 Delivery Device POC O2 Rate Minute Ventilation POC FiO2 Tidal Volume PEEP POC Sodium Sodium 138 POC Potassium Potassium 4.5 D Chloride 101 Carbon Dioxide 31 Anion Gap 6.0 BUN 21 H Creatinine 0.70 Est Cr Clr Drug Dosing 72.7 Est GFR ( Amer) 105.4 Est GFR (Non-Af Amer) 90.9 BUN/Creatinine Ratio 29.7 H Glucose 151 H POC Glucose 134 H Calcium 8.6 Phosphorus Magnesium Procalcitonin Urine Legionella Ag Mycoplasma pneumon IgM Medications Administered Current Inpatient Medications Enoxaparin Sodium (Enoxaparin Inj 40 Mg/0.4 Ml Syr) 40 mg SQ BID [facility] Stop: 08/17/20 22:14 Last Admin: 07/23/20 20:23 Dose: 40 mg Documented by: Fentanyl Citrate (Fentanyl Bolus From Bag) 50 mcg IV Q60M PRN PRN Reason: Pain or Agitation Stop: 08/04/20 17:49 Last Admin: 07/23/20 00:35 Dose: 50 mcg Documented by: Heparin Sodium (Beef Lung) (Heparin 10 Unit/Ml 5 Ml Flush) 5 ml FLUSH PRN PRN PRN Reason: Flush Stop: 08/21/20 22:49 Dexamethasone 6 mg/ Syringe 1.5 mls @ 1 mls/min IV QAM [facility] Stop: 07/28/20 08:59 Last Admin: 07/23/20 08:10 Dose: 1 mls/min Documented by: Doxycycline Hyclate 100 mg/ (Dextrose) 110 mls @ 55 mls/hr IV Q12H [facility] Stop: 07/26/20 01:29 Last Infusion: 07/23/20 13:28 Dose: Infused Documented by: Propofol (Diprivan) 1,000 mg in 100 mls @ 13.5 mls/hr IV .Q7H25M [facility]; Protocol Stop: 07/24/20 17:59 Last Titration: 07/23/20 19:21 Dose: 30 mcg/kg/min, 13.5 mls/hr Documented by: Fentanyl Citrate (Fentanyl Drip) 1,250 mcg in 250 mls @ 15 mls/hr IV .[id number] [facility]; Protocol Stop: 08/04/20 17:59 Last Titration: 07/23/20 19:22 Dose: 75 mcg/hr, 15 mls/hr Documented by: Norepinephrine Bitartrate (Levophed/D5w) 8 mg in 508 mls @ 14.288 mls/hr IV .Q24H [facility]; Protocol Stop: 08/20/20 19:44 Last Admin: 07/22/20 19:14 Dose: Not Given Documented by: Acetaminophen (Ofirmev) 1,000 mg in 100 mls @ 400 mls/hr IV Q8H PRN; Protocol PRN Reason: Fever Stop: 07/25/20 00:14 Famotidine 20 mg/ Syringe 5 mls @ 2.5 mls/min IV BID [facility] Stop: 08/21/20 09:14 Last Admin: 07/23/20 20:24 Dose: 2.5 mls/min Documented by: Dextrose/Sodium Chloride (D5w And 1/2nss) 1,000 mls @ 50 mls/hr IV .Q20H [facility] Stop: 08/21/20 09:59 Last Admin: 07/23/20 03:26 Dose: 50 mls/hr Documented by: Miscellaneous (Icu Electrolyte Replacement Protocol) 1 ea N/A BID@06,18 [facility]; Protocol Stop: 07/28/20 17:59 Last Admin: 07/23/20 19:49 Dose: 1 ea Documented by: Ondansetron HCl (Ondansetron Inj 2 Mg/Ml 2 Ml Vial) 4 mg IV Q6H PRN PRN Reason: Nausea Stop: 08/17/20 20:33 Propofol (Propofol Bolus From Bag) 20 mg IV Q5M PRN PRN Reason: Sedation Stop: 07/24/20 17:49 PG Care Time/CCT Total # of Minutes Spent Total Time Spent with Patient: Total time spent is greater than 50% in coordination of care (as documented) at patient's floor/unit and/or counseling patient: Coding Level of Care Code 10306 Subseq Hosp Care Lvl 2 Diagnoses COVID-19 U07.1 Acute respiratory failure with hypoxia J96.01 Chronic GERD K21.9 Multiple myeloma C90.00 DVT prophylaxis Z29.9 Hypokalemia E87.6
[2020-07-24] MEDS: propofoL 1,000 MG/100 ML VIAL IV SCH ×4 (00:12→20:42)
[2020-07-24 03:30] LABS: iSTAT Arterial Blood Gas HCO3 30 meg/L (19-24); iSTAT Arterial Blood Gas pCO2 43 mmHg (35-46); iSTAT Arterial Blood Gas pH 7.46 (7.35-7.45); iSTAT Arterial Blood Gas pO2 64 mmHg (80-95); iSTAT Carbon Dioxide 32 mmol/L (24-31); iSTAT FiO2 60 %; iSTAT Site Art Line
[2020-07-24] MEDS: NOREPINEPHRINE/D5W 8 MG/508 ML BAG IV SCH ×2 (06:45→20:47)
[2020-07-24] MEDS: FAMOTIDINE 20 MG in SYRINGE 3 ML IV SCH ×2 (07:54→20:41)
[2020-07-24] MEDS: dexAMETHasone 6 MG in SYRINGE 0 ML IV SCH (07:54)
[2020-07-24] MEDS: fentaNYL DRIP 1,250 MCG/250 ML BAG IV SCH (07:55)
[2020-07-24] MEDS: ENOXAPARIN INJ 40 MG/0.4 ML SYR SQ SCH ×2 (07:56→20:46)
[2020-07-24 08:55] LABS: Basophils # (auto) 0.01 K/uL (0-0.2); Basophils % (auto) 0.1 %; Eosinophils # (auto) 0.03 K/uL (0-0.5); Eosinophils % (auto) 0.3 %; Hematocrit (blood only) 34.4 % (37-47); Immature Granulocytes # (auto) 0.03 K/uL (0.00-0.02); Immature Granulocytes % (auto) 0.3 %; Lymphocytes # (auto) 1.01 K/uL (1.2-3.4); Lymphocytes % (auto) 8.7 %; Mean Corpuscular Hemoglobin 27.4 pg (25-34); Mean Corpuscular Volume 85.8 fL (80-100); Mean Platelet Volume 10.6 fL (7.4-10.4); Monocytes # (auto) 1.07 K/uL (0.11-0.59); Monocytes % (auto) 9.2 %; Neutrophils # (auto) 9.43 K/uL (1.4-6.5); Neutrophils % (auto) 81.4 %; Platelet Count 252 K/uL (130-400); RDW Coefficient of Variation 15.1 % (11.5-14.5); RDW Standard Deviation 47.1 fL (36.4-46.3); Red Blood Count 4.01 M/uL (4.2-5.4); White Blood Count 11.58 K/uL (4.8-10.8)
[2020-07-24 09:18] LABS: BUN Creatinine Ratio 39.8 (10-20); Calcium 8.8 mg/dl (8.5-10.1); Creatinine Clr Calc Pharmacy 87.8 ml/min; Est GFR (African American) 112.1; Est GFR (Non-African American) 96.7; Phosphorus 2.9 mg/dl (2.5-4.9); Potassium 3.6 mmol/L (3.5-5.1)
--- NOTE | 2020-07-24 09:18 | XRay Report ---
SINGLE VIEW CHEST CLINICAL HISTORY: Respiratory failure. FINDINGS: An AP, portable, upright chest radiograph is compared to study dated 07/23/2020 and correla juan with chest CT dated 07/18/2020. An endotracheal tube, an enteric tube, and a right internal jugul ar central venous catheter are unchanged in position. The heart is enlarged. Diffuse airspace consoli dation has not significant change from yesterday. There are small pleural effusions. No pneumothorax is seen. The skeletal structures are osteopenic. The bony thorax is grossly intact. IMPRESSION: 1. Stable lines and tubes. 2. Cardiomegaly. 3. Multifocal airspace consolidation has not significantly changed from yesterday. Differential consi derations remain pulmonary edema and/or multifocal pneumonia. 4. Small pleural effusions. ACT 112: Negative or not required by law. Electronically signed by: Richie Goff M.D. 07/24/2020 9:17 AM
[2020-07-24] MEDS: ICU ELECTROLYTE REPLACEMENT PROTOCOL SCH ×2 (09:45→19:18)
[2020-07-24] MEDS: POTASSIUM CHLORIDE / WTR 20 MEQ/100 ML PLCT IV SCH ×2 (10:37→13:36)
[2020-07-24] MEDS: DOXYCYCLINE HYCLATE 100 MG in DEXTROSE 5% 100 ML IV SCH ×2 (13:35→23:13)
--- NOTE | 2020-07-24 15:48 | Critical Care Progress Note ---
Date of Service July 24, 2020 Assessment & Plan (1) Acute respiratory failure with hypoxia: CTA 07/18/2020: Consolidative process dense bilateral lower lobes, diffuse groundglass opacities appreciated bilaterally upper and lower lobes with central scarring. Mild mediastinal lymphadenopathy. No signs of pulmonary embolus Patient had PET/CT done in October 2018 which did not show any interstitial thickening or any infiltrative changes at that time. -- VDRF Secondary to multilobar pneumonia secondary to COVID-19 in an immunosuppressed patient Continue with ventilatory support Keep RASS -1 Daily sedation holidays and SBT's Continue with ARDS Continue with lung protective ventilation High PEEP, low tidal volume to keep Plateau < 30 with permissive hypercapnea if need be. Monitor ABGs Procalcitonin has been negative x2, patient is immunosuppressed Component of pneumonitis from Velcade is also a possibility. She is already getting dexamethasone which should take care of it. Patient was prone once on 07/23/2020. Has been off Nimbex since then. 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 We will start the patient on tube feeds. Keep an eye on output. If the output is going down we will give 20 mg of Lasix. Replacing potassium. Silvio Magana [phone] was called and updated regarding the patient's condition. I have personally spent 41 minutes of critical care time in the direct management of this patient. This is a life/limb threatening event. This includes time spent evaluating patient, direct bedside care, chart review, placing orders, interpretation of diagnostic studies, discussion with consultants, patient, and family members, as well as other required patient management activities. This time is exclusive of all separately billable procedures, and teaching time and separate from and in addition to any other critical care service time. Please note the above document was generated using voice recognition software. It may contain grammatical, syntax or spelling errors. (2) COVID-19: (3) Multiple myeloma: Admission and Anticipated Discharge Date Admission Date: July 18, 2020 Subjective Patient seen and examined at bedside. No acute distress, no adverse events overnight. Patient is RASS -1 at the time of examination. On propofol and fentanyl. Has been off Nimbex for more than 24 hours. Patient was breathing with the vent at the time of examination T-max 37.9 Review of Systems Review of Systems: Unobtainable due to endotracheal tube Physical Exam Physical Exam: Constitutional: No acute distress HEENT: PERRLA, positive ETT Respiratory system: Decreased air entry bilaterally, positive crackles bilateral lower lobes, no wheeze, no rhonchi CVS: S1-S2 positive, no murmurs or gallops Abdomen: Soft, nontender, nondistended, positive bowel sounds x4 Extremities: +2 pulses bilaterally radialis/ dorsalis pedis, no cyanosis, no edema Neuro: Positive corneal, positive gag, positive pupillary, RASS -1 Psych: Unable to assess G/U: Positive Anaya Skin: no rashes, warm and dry Lymphatic: no cervical or axillary lymphadenopathy Results & Data Results & Data ([facility]) Vital Signs (Past 12 Hours) Vital Signs Temp Pulse Resp BP Pulse Ox 07/24/20 13:45 37.9 C H 77 93 07/24/20 13:00 37.9 C H 83 93 07/24/20 12:00 38.0 C H 82 92 07/24/20 11:15 38.0 C H 80 92 07/24/20 11:00 38.0 C H 81 91 07/24/20 10:30 83 20 90 07/24/20 10:00 38.0 C H 82 89 L 07/24/20 09:00 38.1 C H 90 92 07/24/20 08:30 38.0 C H 91 H 92 07/24/20 08:00 38.0 C H 77 112/73 92 07/24/20 07:25 87 20 93 07/24/20 07:15 37.9 C H 89 93 07/24/20 07:05 37.9 C H 83 121/80 93 07/24/20 07:00 37.9 C H 84 93 07/24/20 06:00 37.8 C H 84 19 117/73 94 07/24/20 04:00 37.6 C H 81 18 135/65 89 L 07/24/20 08:24 07/24/20 08:24 Coding Level of Care Code Critical Care 1st 30-74 mins Diagnoses Acute respiratory failure with hypoxia J96.01 COVID-19 U07.1 Multiple myeloma C90.00 Time Spent (min) 41
[2020-07-24] MEDS ORDERED: STAT IV Infusion **Titration per Protocol STA (19:14)
[2020-07-24] MEDS ORDERED: PROPOFOL BOLUS FROM BAG IV PRN (19:14)
--- NOTE | 2020-07-24 21:02 | Hospitalist Progress Note ---
Date of Service July 24, 2020 Assessment & Plan (1) COVID-19: Dexamethasone 6mg IV daily for 10 days, day 7 5 days remdesivir, completed 07/22 defer convalescent plasma as she presented day 6 of illness Isolation precautions with airborne and droplet patient now intubated and on mechanical ventilation, supine today management per frit coater (2) Acute respiratory failure with hypoxia: Tachypneic and hypoxic on presentation CT chest negative for PE required high flow nasal canula for two days rapidly deteriorated morning of 07/21, required BIPAP moved to ICU status, placed on Precedex but still working hard to breathe intubated in the evening on 07/21, placed prone, saturations improved, less FiO2 and high PEEP now stable supine, paralytics off, management per frit coater (3) Chronic GERD: Switch omeprazole for pantoprazole as per hospital formulary. (4) Multiple myeloma: Discussed with Dr Conner. Will initially hold Revlimid per his advice he will follow up with patient in the clinic (5) DVT prophylaxis: Lovenox 40mg SQ BID (6) Hypokalemia: 3.2 on admission, up to 3.6 today will now be on ICU electrolyte replacement protocol Admission and Anticipated Discharge Date Admission Date: July 18, 2020 Subjective sedated on ventilator, management per Dr. Aguilar Review of Systems Review of Systems: Unobtainable due to endotracheal tube and Unobtainable due to reduced consciousness Physical Exam Constitutional: WD/WN, vitals as above well developed and + mechanically ventilated (supine); no acute distress Neck: trachea midline, no thyromegaly Respiratory: symmetric chest movement (ventilated) Auscultation: lungs clear to auscultation bilaterally Cardiovascular: RRR, no murmur, no edema Gastrointestinal (Abdomen): normal bowel sounds, soft, nontender, no hepatosplenomegaly Musculoskeletal: no cyanosis or clubbing, extremities motor strength 5/5 Skin: no rashes, warm and dry Neurologic: patellar DTR's 2+ bilat, sensation intact and PERRL, EOMI, accommodation nl, no face palsy, no dysarthria + obtunded; no focal motor deficits Psychiatric: A+Ox3, euthymic affect Orientation: + not alert Lymphatic: no cervical or axillary lymphadenopathy Results & Data Results & Data ([facility]) Vital Signs (Past 12 Hours) Vital Signs Temp Pulse Resp BP Pulse Ox 07/24/20 19:38 63 18 94 07/24/20 17:35 37.3 C 62 101/66 92 07/24/20 17:05 37.3 C 64 95/68 L 93 07/24/20 16:30 37.4 C 60 94 07/24/20 16:26 61 18 94 07/24/20 16:05 37.5 C 66 94/67 L 94 07/24/20 15:05 37.8 C H 69 101/67 93 07/24/20 14:00 37.8 C H 77 93 07/24/20 13:45 37.9 C H 77 93 07/24/20 13:00 37.9 C H 83 93 07/24/20 12:00 38.0 C H 82 92 07/24/20 11:15 38.0 C H 80 92 07/24/20 11:00 38.0 C H 81 91 07/24/20 10:30 83 20 90 07/24/20 10:00 38.0 C H 82 89 L Laboratory Results Laboratory Results - last 24 hr 07/24/20 07/24/20 07/24/20 00:00 03:17 08:24 WBC RBC Hgb Hct MCV MCH MCHC RDW Std Deviation RDW Coeff of Fawn Plt Count MPV Immature Gran % (Auto) Neut % (Auto) Lymph % (Auto) [place] % (Auto) Eos % (Auto) Baso % (Auto) Neut # (Auto) Lymph # (Auto) [place] # (Auto) Eos # (Auto) Baso # (Auto) Immature Gran # (Auto) Sample Site Art Line POC pH 7.46 H POC pCO2 43 POC pO2 64 L POC HCO3 30 H POC Total CO2 32 H POC Base Excess 6.0 H POC ABG O2 Sat 93.0 Keo Test NA O2 Delivery Device Ventilator POC O2 Rate 16 Minute Ventilation 6.5 POC FiO2 60 Tidal Volume 380 PEEP 10 Sodium 138 Potassium 3.6 D Chloride 102 Carbon Dioxide 28 Anion Gap 8.0 BUN 23 H Creatinine 0.58 L Est Cr Clr Drug Dosing 87.8 Est GFR ( Amer) 112.1 Est GFR (Non-Af Amer) 96.7 BUN/Creatinine Ratio 39.8 H Glucose 111 H POC Glucose 109 H Calcium 8.8 Phosphorus 2.9 Magnesium 2.0 07/24/20 07/24/20 07/24/20 08:24 11:43 11:52 WBC 11.58 H RBC 4.01 L Hgb 11.0 L Hct 34.4 L MCV 85.8 MCH 27.4 MCHC 32.0 RDW Std Deviation 47.1 H RDW Coeff of Fawn 15.1 H Plt Count 252 MPV 10.6 H Immature Gran % (Auto) 0.3 Neut % (Auto) 81.4 Lymph % (Auto) 8.7 [place] % (Auto) 9.2 Eos % (Auto) 0.3 Baso % (Auto) 0.1 Neut # (Auto) 9.43 H Lymph # (Auto) 1.01 L [place] # (Auto) 1.07 H Eos # (Auto) 0.03 Baso # (Auto) 0.01 Immature Gran # (Auto) 0.03 H Sample Site POC pH POC pCO2 POC pO2 POC HCO3 POC Total CO2 POC Base Excess POC ABG O2 Sat Keo Test O2 Delivery Device POC O2 Rate Minute Ventilation POC FiO2 Tidal Volume PEEP Sodium Potassium Chloride Carbon Dioxide Anion Gap BUN Creatinine Est Cr Clr Drug Dosing Est GFR ( Amer) Est GFR (Non-Af Amer) BUN/Creatinine Ratio Glucose POC Glucose 146 H 161 H Calcium Phosphorus Magnesium Medications Administered Current Inpatient Medications Enoxaparin Sodium (Enoxaparin Inj 40 Mg/0.4 Ml Syr) 40 mg SQ BID [facility] Stop: 08/17/20 22:14 Last Admin: 07/24/20 20:46 Dose: 40 mg Documented by: Fentanyl Citrate (Fentanyl Bolus From Bag) 50 mcg IV Q60M PRN PRN Reason: Pain or Agitation Stop: 08/04/20 17:49 Last Admin: 07/23/20 00:35 Dose: 50 mcg Documented by: Heparin Sodium (Beef Lung) (Heparin 10 Unit/Ml 5 Ml Flush) 5 ml FLUSH PRN PRN PRN Reason: Flush Stop: 08/21/20 22:49 Dexamethasone 6 mg/ Syringe 1.5 mls @ 1 mls/min IV QAM [facility] Stop: 07/28/20 08:59 Last Admin: 07/24/20 07:54 Dose: 1 mls/min Documented by: Doxycycline Hyclate 100 mg/ (Dextrose) 110 mls @ 55 mls/hr IV Q12H [facility] Stop: 07/26/20 01:29 Last Infusion: 07/24/20 15:35 Dose: Infused Documented by: Fentanyl Citrate (Fentanyl Drip) 1,250 mcg in 250 mls @ 15 mls/hr IV .[id number] [facility]; Protocol Stop: 08/04/20 17:59 Last Titration: 07/24/20 19:05 Dose: 75 mcg/hr, 15 mls/hr Documented by: Norepinephrine Bitartrate (Levophed/D5w) 8 mg in 508 mls @ 14.288 mls/hr IV .Q24H [facility]; Protocol Stop: 08/20/20 19:44 Last Admin: 07/24/20 20:47 Dose: Not Given Documented by: Acetaminophen (Ofirmev) 1,000 mg in 100 mls @ 400 mls/hr IV Q8H PRN; Protocol PRN Reason: Fever Stop: 07/25/20 00:14 Famotidine 20 mg/ Syringe 5 mls @ 2.5 mls/min IV BID [facility] Stop: 08/21/20 09:14 Last Admin: 07/24/20 20:41 Dose: 2.5 mls/min Documented by: Propofol (Diprivan) 1,000 mg in 100 mls @ 9.06 mls/hr IV .Q11H3M [facility]; Protocol Stop: 07/27/20 19:14 Last Admin: 07/24/20 20:42 Dose: 30 mcg/kg/min, 13.6 mls/hr Documented by: Miscellaneous (Icu Electrolyte Replacement Protocol) 1 ea N/A BID@06,18 [facility]; Protocol Stop: 07/28/20 17:59 Last Admin: 07/24/20 19:18 Dose: Not Given Documented by: Multivitamins/Minerals (Multi Vit W/Minerals Liquid 15 Ml Udp) 15 ml NG QAM [facility] Stop: 08/24/20 08:59 Nutritional Formula (Peptamen Intense Vhp 1.0 Blaise 1,000 Ml Bag) 1,000 ml OG UD [facility]; Protocol Stop: 08/23/20 14:44 Ondansetron HCl (Ondansetron Inj 2 Mg/Ml 2 Ml Vial) 4 mg IV Q6H PRN PRN Reason: Nausea Stop: 08/17/20 20:33 Propofol (Propofol Bolus From Bag) 20 mg IV Q5M PRN PRN Reason: Sedation Stop: 07/27/20 19:13 PG Care Time/CCT Total # of Minutes Spent Total Time Spent with Patient: Total time spent is greater than 50% in coordination of care (as documented) at patient's floor/unit and/or counseling patient: Coding Level of Care Code 08942 Subseq Hosp Care Lvl 2 Diagnoses COVID-19 U07.1 Acute respiratory failure with hypoxia J96.01 Chronic GERD K21.9 Multiple myeloma C90.00 DVT prophylaxis Z29.9 Hypokalemia E87.6
[2020-07-25] MEDS: fentaNYL DRIP 1,250 MCG/250 ML BAG IV SCH ×2 (00:33→14:25)
[2020-07-25] MEDS: propofoL 1,000 MG/100 ML VIAL IV SCH ×3 (02:40→20:12)
[2020-07-25] MEDS ORDERED: SODIUM CHLORIDE 0.9% 1000ML 500 ML IV ONE (05:45)
[2020-07-25] MEDS: ACETAMINOPHEN 1,000 MG/100 ML VIAL IV PRN (05:53)
[2020-07-25 06:31] LABS: Basophils # (auto) 0.01 K/uL (0-0.2); Basophils % (auto) 0.1 %; Eosinophils # (auto) 0.04 K/uL (0-0.5); Eosinophils % (auto) 0.4 %; Hematocrit (blood only) 34.1 % (37-47); Hemoglobin 11.1 g/dL (12.0-16.0); Immature Granulocytes # (auto) 0.02 K/uL (0.00-0.02); Immature Granulocytes % (auto) 0.2 %; Lymphocytes % (auto) 8.5 %; Mean Corpuscular Hemoglobin 28.2 pg (25-34); Mean Corpuscular Hgb Conc 32.6 g/dL (32-36); Mean Corpuscular Volume 86.8 fL (80-100); Mean Platelet Volume 10.7 fL (7.4-10.4); Monocytes # (auto) 1.19 K/uL (0.11-0.59); Monocytes % (auto) 12.7 %; Neutrophils # (auto) 7.31 K/uL (1.4-6.5); Neutrophils % (auto) 78.1 %; Platelet Count 296 K/uL (130-400); RDW Coefficient of Variation 15.1 % (11.5-14.5); Red Blood Count 3.93 M/uL (4.2-5.4); White Blood Count 9.37 K/uL (4.8-10.8)
[2020-07-25 06:47] LABS: Base Excess ABG 3.4 mEq/L (-9-1.8); HCO3 ABG 28 mmol/L (19-24); Oxygen Saturation ABG 91.7 % (90-95); PCO2 ABG 41 mmHg (35-46); PO2 ABG 64 mmHg (80-95); pH ABG 7.45 (7.35-7.45)
[2020-07-25 06:48] LABS: Allen Test MIDLINE (Pos)
[2020-07-25 07:09] LABS: Calcium 8.5 mg/dl (8.5-10.1); Creatinine Clr Calc Pharmacy 97.4 ml/min; Est GFR (African American) 116.2; Est GFR (Non-African American) 100.3; Phosphorus 3.2 mg/dl (2.5-4.9); Potassium 3.9 mmol/L (3.5-5.1)
[2020-07-25] MEDS ORDERED: Nursing to Pharmacy Communication SCH (07:30)
[2020-07-25] MEDS: ICU ELECTROLYTE REPLACEMENT PROTOCOL SCH ×2 (07:40→18:16)
[2020-07-25] MEDS: ENOXAPARIN INJ 40 MG/0.4 ML SYR SQ SCH ×2 (07:41→20:13)
[2020-07-25] MEDS: dexAMETHasone 6 MG in SYRINGE 0 ML IV SCH (07:41)
[2020-07-25] MEDS: MULTI VIT W/MINERALS LIQUID 15 ML UDP NG SCH (07:41)
[2020-07-25] MEDS: FAMOTIDINE 20 MG in SYRINGE 3 ML IV SCH ×2 (07:50→20:15)
[2020-07-25] MEDS: POTASSIUM CHLORIDE / WTR 10 MEQ/100 ML PLCT IV SCH ×6 (07:50→14:25)
--- NOTE | 2020-07-25 08:23 | XRay Report ---
XR chest 1V portable CLINICAL HISTORY: Respiratory failure. COMPARISON STUDY: 07/24/2020 FINDINGS: There is an enteric tube which passes into the stomach. There is a right internal jugular c entral venous catheter. There is an endotracheal tube positioned 24 mm above the [place]. There are pe rsistent bilateral pulmonary airspace opacities consistent with a multifocal pneumonia.[ IMPRESSION: No significant change from the preceding study. Persistent bilateral multifocal airspace opacities, likely representing a multifocal pneumonia. ACT 112: Negative or not required by law. Electronically signed by: Gary Almeida M.D. 07/25/2020 8:22 AM
[2020-07-25] MEDS ORDERED: MAGNESIUM SULFATE / D5W 1 GM/100 ML BAG IV ONE (08:35)
[2020-07-25] MEDS ORDERED: FUROSEMIDE 40 MG in SYRINGE 0 ML IV ONE (08:35)
[2020-07-25] MEDS ORDERED: POTASSIUM CHLORIDE / WTR 20 MEQ/100 ML PLCT IV SCH (09:15)
[2020-07-25] MEDS ORDERED: FUROSEMIDE 40 MG/4 ML VIAL IV ONE (09:18)
[2020-07-25] MEDS: DOXYCYCLINE HYCLATE 100 MG in DEXTROSE 5% 100 ML IV SCH ×2 (11:39→23:00)
--- NOTE | 2020-07-25 13:44 | Critical Care Progress Note ---
Date of Service July 25, 2020 Assessment & Plan (1) Acute respiratory failure with hypoxia: CTA 07/18/2020: Consolidative process dense bilateral lower lobes, diffuse groundglass opacities appreciated bilaterally upper and lower lobes with central scarring. Mild mediastinal lymphadenopathy. No signs of pulmonary embolus Patient had PET/CT done in October 2018 which did not show any interstitial thickening or any infiltrative changes at that time. -- VDRF Secondary to multilobar pneumonia secondary to COVID-19 in an immunosuppressed patient Continue with ventilatory support Keep RASS -1 Daily sedation holidays and SBT's Continue with lung protective ventilation High PEEP, low tidal volume to keep Plateau < 30 with permissive hypercapnea if need be. Monitor ABGs Procalcitonin has been negative x2, patient is immunosuppressed Component of pneumonitis from Velcade is also a possibility. She is already getting dexamethasone which should take care of it. Patient was prone once on 07/23/2020. 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 A dose of Lasix was given to the patient today as her urine output was not low in the last 24 hours. Barbara Magana [phone] I have personally spent 41 minutes of critical care time in the direct management of this patient. This is a life/limb threatening event. This includes time spent evaluating patient, direct bedside care, chart review, placing orders, interpretation of diagnostic studies, discussion with consultants, patient, and family members, as well as other required patient management activities. This time is exclusive of all separately billable procedures, and teaching time and separate from and in addition to any other critical care service time. Please note the above document was generated using voice recognition software. It may contain grammatical, syntax or spelling errors. (2) COVID-19: (3) Multiple myeloma: Admission and Anticipated Discharge Date Admission Date: July 18, 2020 Subjective Patient seen and examined at bedside. No acute distress, no adverse events overnight Patient was RASS -2 at the time of examination. She did wake up following commands. Denies any chest pain, no headache. She was saturating 91% on 50% FiO2 and 10 of PEEP Has been afebrile. Review of Systems Review of Systems: Unobtainable due to endotracheal tube Physical Exam Physical Exam: Constitutional: No acute distress HEENT: PERRLA, positive ETT Respiratory system: Decreased air entry bilaterally, positive crackles bilateral lower lobes, no wheeze, no rhonchi CVS: S1-S2 positive, no murmurs or gallops Abdomen: Soft, nontender, nondistended, positive bowel sounds x4 Extremities: +2 pulses bilaterally radialis/ dorsalis pedis, no cyanosis, no edema Neuro: Positive corneal, positive gag, positive pupillary, RASS -1 Psych: Unable to assess G/U: Positive Anaya Skin: no rashes, warm and dry Lymphatic: no cervical or axillary lymphadenopathy Results & Data Results & Data ([facility]) Vital Signs (Past 12 Hours) Vital Signs Temp Pulse Resp BP Pulse Ox 07/25/20 13:15 37.7 C H 77 97 07/25/20 13:05 37.7 C H 78 90/63 L 97 07/25/20 13:00 37.7 C H 75 96 07/25/20 12:45 37.7 C H 77 95 07/25/20 12:35 37.7 C H 79 101/70 96 07/25/20 12:30 37.7 C H 81 95 07/25/20 12:15 37.7 C H 90 97 07/25/20 12:05 37.7 C H 84 113/73 96 07/25/20 12:00 37.7 C H 84 97 07/25/20 11:45 37.7 C H 93 H 100 07/25/20 11:44 82 21 96 07/25/20 11:35 37.7 C H 79 110/71 96 07/25/20 11:30 37.7 C H 79 97 07/25/20 11:15 37.7 C H 82 95 07/25/20 11:05 37.7 C H 83 113/72 94 07/25/20 11:00 37.7 C H 77 94 07/25/20 10:45 37.7 C H 75 91 07/25/20 10:35 37.7 C H 79 104/71 93 07/25/20 10:30 37.7 C H 77 91 07/25/20 10:15 37.7 C H 78 90 07/25/20 10:05 37.7 C H 81 101/65 90 07/25/20 10:00 37.7 C H 87 90 07/25/20 09:45 37.7 C H 82 91 07/25/20 09:35 37.7 C H 84 101/63 90 07/25/20 09:30 37.8 C H 85 90 07/25/20 09:15 37.8 C H 85 91 07/25/20 09:05 37.8 C H 88 101/59 L 92 07/25/20 09:00 37.8 C H 87 91 07/25/20 08:45 37.9 C H 98 H 93 07/25/20 08:35 37.9 C H 95 H 111/65 93 07/25/20 08:30 37.9 C H 91 H 92 07/25/20 08:15 37.9 C H 106 H 96 07/25/20 08:07 93 H 21 91 07/25/20 08:05 38.0 C H 99 H 21 123/78 89 L 07/25/20 08:00 38.0 C H 104 H 24 92 07/25/20 07:45 38.1 C H 95 H 19 90 07/25/20 07:35 38.1 C H 96 H 20 104/62 91 07/25/20 07:30 38.1 C H 96 H 19 91 07/25/20 07:15 38.1 C H 98 H 19 91 07/25/20 07:05 38.2 C H 101 H 22 103/61 92 07/25/20 07:00 38.2 C H 96 H 20 91 07/25/20 06:45 38.2 C H 98 H 19 91 07/25/20 06:35 38.3 C H 95 H 101/60 91 07/25/20 06:30 38.3 C H 90 90 07/25/20 06:15 38.4 C H 101 H 89 L 07/25/20 06:05 38.4 C H 96 H 106/68 90 07/25/20 06:00 38.4 C H 102 H 90 07/25/20 05:45 38.4 C H 100 H 90 07/25/20 05:35 38.5 C H 107 H 114/70 90 07/25/20 05:30 38.5 C H 101 H 91 07/25/20 05:15 38.5 C H 101 H 90 07/25/20 05:05 38.5 C H 105 H 107/68 07/25/20 05:00 38.5 C H 100 H 07/25/20 04:45 38.4 C H 102 H 90 07/25/20 04:36 38.4 C H 105 H 90 07/25/20 04:35 38.4 C H 105 H 113/72 07/25/20 04:30 38.4 C H 103 H 16 90 07/25/20 04:15 38.4 C H 101 H 07/25/20 04:05 38.4 C H 114 H 116/76 92 07/25/20 04:00 38.4 C H 100 H 16 90 07/25/20 03:45 38.4 C H 103 H 91 07/25/20 03:35 38.3 C H 103 H 110/69 92 07/25/20 03:30 38.3 C H 99 H 91 07/25/20 03:15 38.3 C H 94 H 91 07/25/20 03:05 38.3 C H 94 H 16 113/69 91 07/25/20 03:00 38.3 C H 95 H 90 07/25/20 02:45 38.2 C H 98 H 90 07/25/20 02:35 38.2 C H 94 H 108/74 90 07/25/20 02:30 38.2 C H 93 H 16 90 07/25/20 02:15 38.1 C H 102 H 91 07/25/20 02:06 38.1 C H 101 H 16 90 07/25/20 02:05 38.1 C H 100 H 118/76 90 07/25/20 02:00 38.1 C H 99 H 18 90 07/25/20 06:10 07/25/20 06:10 Coding Level of Care Code Critical Care 1st 30-74 mins Diagnoses Acute respiratory failure with hypoxia J96.01 COVID-19 U07.1 Multiple myeloma C90.00 Time Spent (min) 41
--- NOTE | 2020-07-25 17:06 | Hospitalist Progress Note ---
Date of Service July 25, 2020 Assessment & Plan (1) COVID-19: Dexamethasone 6mg IV daily for 10 days, day 8 5 days remdesivir, completed 07/22 defer convalescent plasma as she presented day 6 of illness Isolation precautions with airborne and droplet patient now intubated and on mechanical ventilation, supine today management per bio medical technician SBT and sedation holidays, working toward extubation (2) Acute respiratory failure with hypoxia: Tachypneic and hypoxic on presentation CT chest negative for PE required high flow nasal canula for two days rapidly deteriorated morning of 07/21, required BIPAP moved to ICU status, placed on Precedex but still working hard to breathe intubated in the evening on 07/21, placed prone 07/23 but has not needed proned since that time now stable supine, paralytics off, management per bio medical technician breathing trials and sedation holidays (3) Chronic GERD: Switch omeprazole for pantoprazole as per hospital formulary. (4) Multiple myeloma: Discussed with Dr Conner. Will initially hold Revlimid per his advice he will follow up with patient in the clinic (5) DVT prophylaxis: Lovenox 40mg SQ BID (6) Hypokalemia: 3.2 on admission, up to 3.7 today will now be on ICU electrolyte replacement protocol monitor closely while giving Lasix Admission and Anticipated Discharge Date Admission Date: July 18, 2020 Subjective no major issues today, ventilated, supine, has not required proning since 07/23 Lasix given today Review of Systems Review of Systems: Unobtainable due to endotracheal tube and Unobtainable due to reduced consciousness Physical Exam Constitutional: WD/WN, vitals as above well developed and + mechanically ventilated (supine); no acute distress Neck: trachea midline, no thyromegaly Respiratory: symmetric chest movement (ventilated) Auscultation: lungs clear to auscultation bilaterally Cardiovascular: RRR, no murmur, no edema Gastrointestinal (Abdomen): normal bowel sounds, soft, nontender, no hepatosplenomegaly Skin: no rashes, warm and dry Neurologic: + obtunded; no focal motor deficits Psychiatric: Orientation: + not alert Lymphatic: no cervical or axillary lymphadenopathy Results & Data Results & Data ([facility]) Vital Signs (Past 12 Hours) Vital Signs Temp Pulse Resp BP Pulse Ox 07/25/20 14:36 37.4 C 70 91/60 L 98 07/25/20 14:30 37.4 C 72 98 07/25/20 14:15 37.5 C 70 98 07/25/20 14:06 37.5 C 70 91/63 L 97 07/25/20 14:00 37.5 C 69 98 07/25/20 13:45 37.6 C H 72 97 07/25/20 13:35 37.6 C H 74 86/59 L 98 07/25/20 13:30 37.6 C H 75 97 07/25/20 13:15 37.7 C H 77 97 07/25/20 13:05 37.7 C H 78 90/63 L 97 07/25/20 13:00 37.7 C H 75 96 07/25/20 12:45 37.7 C H 77 95 07/25/20 12:35 37.7 C H 79 101/70 96 07/25/20 12:30 37.7 C H 81 95 07/25/20 12:15 37.7 C H 90 97 07/25/20 12:05 37.7 C H 84 113/73 96 07/25/20 12:00 37.7 C H 84 97 07/25/20 11:45 37.7 C H 93 H 100 07/25/20 11:44 82 21 96 07/25/20 11:35 37.7 C H 79 110/71 96 07/25/20 11:30 37.7 C H 79 97 07/25/20 11:15 37.7 C H 82 95 07/25/20 11:05 37.7 C H 83 113/72 94 07/25/20 11:00 37.7 C H 77 94 07/25/20 10:45 37.7 C H 75 91 07/25/20 10:35 37.7 C H 79 104/71 93 07/25/20 10:30 37.7 C H 77 91 07/25/20 10:15 37.7 C H 78 90 07/25/20 10:05 37.7 C H 81 101/65 90 07/25/20 10:00 37.7 C H 87 90 07/25/20 09:45 37.7 C H 82 91 07/25/20 09:35 37.7 C H 84 101/63 90 07/25/20 09:30 37.8 C H 85 90 07/25/20 09:15 37.8 C H 85 91 07/25/20 09:05 37.8 C H 88 101/59 L 92 07/25/20 09:00 37.8 C H 87 91 07/25/20 08:45 37.9 C H 98 H 93 07/25/20 08:35 37.9 C H 95 H 111/65 93 07/25/20 08:30 37.9 C H 91 H 92 07/25/20 08:15 37.9 C H 106 H 96 07/25/20 08:07 93 H 21 91 07/25/20 08:05 38.0 C H 99 H 21 123/78 89 L 07/25/20 08:00 38.0 C H 104 H 24 92 07/25/20 07:45 38.1 C H 95 H 19 90 07/25/20 07:35 38.1 C H 96 H 20 104/62 91 07/25/20 07:30 38.1 C H 96 H 19 91 07/25/20 07:15 38.1 C H 98 H 19 91 07/25/20 07:05 38.2 C H 101 H 22 103/61 92 07/25/20 07:00 38.2 C H 96 H 20 91 07/25/20 06:45 38.2 C H 98 H 19 91 07/25/20 06:35 38.3 C H 95 H 101/60 91 07/25/20 06:30 38.3 C H 90 90 07/25/20 06:15 38.4 C H 101 H 89 L 07/25/20 06:05 38.4 C H 96 H 106/68 90 07/25/20 06:00 38.4 C H 102 H 90 07/25/20 05:45 38.4 C H 100 H 90 07/25/20 05:35 38.5 C H 107 H 114/70 90 07/25/20 05:30 38.5 C H 101 H 91 07/25/20 05:15 38.5 C H 101 H 90 07/25/20 05:05 38.5 C H 105 H 107/68 Laboratory Results Laboratory Results - last 24 hr 12/25/20 12/25/20 12/25/20 06:10 06:10 06:11 WBC 9.37 RBC 3.93 L Hgb 11.1 L Hct 34.1 L MCV 86.8 MCH 28.2 MCHC 32.6 RDW Std Deviation 48.0 H RDW Coeff of [place] 15.1 H Plt Count 296 MPV 10.7 H Immature Gran % (Auto) 0.2 Neut % (Auto) 78.1 Lymph % (Auto) 8.5 [place] % (Auto) 12.7 Eos % (Auto) 0.4 Baso % (Auto) 0.1 Neut # (Auto) 7.31 H Lymph # (Auto) 0.80 L [place] # (Auto) 1.19 H Eos # (Auto) 0.04 Baso # (Auto) 0.01 Immature Gran # (Auto) 0.02 ABG pH 7.45 ABG pCO2 41 ABG pO2 64 L ABG HCO3 28 H ABG O2 Saturation 91.7 ABG Base Excess 3.4 H Keo Test MIDLINE Barometric Pressure 723.3 Oxygen Given 15 Sodium 136 Potassium 3.9 Chloride 103 Carbon Dioxide 29 Anion Gap 4.0 BUN 27 H Creatinine 0.52 L Est Cr Clr Drug Dosing 97.4 Est GFR ( Amer) 116.2 Est GFR (Non-Af Amer) 100.3 BUN/Creatinine Ratio 52.0 H Glucose 107 H Calcium 8.5 Phosphorus 3.2 Magnesium 2.0 Medications Administered Current Inpatient Medications Enoxaparin Sodium (Enoxaparin Inj 40 Mg/0.4 Ml Syr) 40 mg SQ BID [facility] Stop: 08/17/20 22:14 Last Admin: 07/25/20 07:41 Dose: 40 mg Documented by: Fentanyl Citrate (Fentanyl Bolus From Bag) 50 mcg IV Q60M PRN PRN Reason: Pain or Agitation Stop: 08/04/20 17:49 Last Admin: 07/23/20 00:35 Dose: 50 mcg Documented by: Heparin Sodium (Beef Lung) (Heparin 10 Unit/Ml 5 Ml Flush) 5 ml FLUSH PRN PRN PRN Reason: Flush Stop: 08/21/20 22:49 Dexamethasone 6 mg/ Syringe 1.5 mls @ 1 mls/min IV QAM [facility] Stop: 07/28/20 08:59 Last Admin: 07/25/20 07:41 Dose: 1 mls/min Documented by: Doxycycline Hyclate 100 mg/ (Dextrose) 110 mls @ 55 mls/hr IV Q12H [facility] Stop: 07/26/20 01:29 Last Infusion: 07/25/20 14:25 Dose: Infused Documented by: Fentanyl Citrate (Fentanyl Drip) 1,250 mcg in 250 mls @ 20 mls/hr IV .[id number] [facility]; Protocol Stop: 08/04/20 17:59 Last Titration: 07/25/20 15:18 Dose: 100 mcg/hr, 20 mls/hr Documented by: Norepinephrine Bitartrate (Levophed/D5w) 8 mg in 508 mls @ 14.288 mls/hr IV .Q24H [facility]; Protocol Stop: 08/20/20 19:44 Last Admin: 07/24/20 20:47 Dose: Not Given Documented by: Famotidine 20 mg/ Syringe 5 mls @ 2.5 mls/min IV BID [facility] Stop: 08/21/20 09:14 Last Admin: 07/25/20 07:50 Dose: 2.5 mls/min Documented by: Propofol (Diprivan) 1,000 mg in 100 mls @ 9.06 mls/hr IV .Q11H3M [facility]; Protocol Stop: 07/27/20 19:14 Last Titration: 07/25/20 15:18 Dose: 20 mcg/kg/min, 9.1 mls/hr Documented by: Acetaminophen (Ofirmev) 1,000 mg in 100 mls @ 400 mls/hr IV Q8H PRN PRN Reason: Pain or Fever Stop: 07/28/20 05:45 Last Infusion: 07/25/20 06:52 Dose: Infused Documented by: Miscellaneous (Icu Electrolyte Replacement Protocol) 1 ea N/A BID@18 [facility]; Protocol Stop: 07/28/20 17:59 Last Admin: 07/25/20 07:40 Dose: 1 ea Documented by: Multivitamins/Minerals (Multi Vit W/Minerals Liquid 15 Ml Udp) 15 ml NG QAM [facility] Stop: 08/24/20 08:59 Last Admin: 07/25/20 07:41 Dose: 15 ml Documented by: Nutritional Formula (Peptamen Intense Vhp 1.0 Bla[place] 1,000 Ml Bag) 1,000 ml OG UD [facility]; Protocol Stop: 08/23/20 14:44 Ondansetron HCl (Ondansetron Inj 2 Mg/Ml 2 Ml Vial) 4 mg IV Q6H PRN PRN Reason: Nausea Stop: 08/17/20 20:33 Propofol (Propofol Bolus From Bag) 20 mg IV Q5M PRN PRN Reason: Sedation Stop: 07/27/20 19:13 PG Care Time/CCT Total # of Minutes Spent Total Time Spent with Patient: Total time spent is greater than 50% in coordination of care (as documented) at patient's floor/unit and/or counseling patient: Coding Level of Care Code 64213 Subseq Hosp Care Lvl 2 Diagnoses COVID-19 U07.1 Acute respiratory failure with hypoxia J96.01 Chronic GERD K21.9 Multiple myeloma C90.00 DVT prophylaxis Z29.9 Hypokalemia E87.6
[2020-07-25] MEDS: NOREPINEPHRINE/D5W 8 MG/508 ML BAG IV SCH (18:17)
[2020-07-26] MEDS: fentaNYL DRIP 1,250 MCG/250 ML BAG IV SCH ×2 (03:42→15:15)
[2020-07-26] MEDS: PEPTAMEN INTENSE VHP 1.0 CAL 1,000 ML BAG OG SCH (03:43)
[2020-07-26] MEDS: propofoL 1,000 MG/100 ML VIAL IV SCH ×3 (04:04→18:34)
[2020-07-26 07:08] LABS: Basophils # (auto) 0.02 K/uL (0-0.2); Basophils % (auto) 0.2 %; Eosinophils # (auto) 0.09 K/uL (0-0.5); Hematocrit (blood only) 35.9 % (37-47); Hemoglobin 11.4 g/dL (12.0-16.0); Immature Granulocytes # (auto) 0.04 K/uL (0.00-0.02); Immature Granulocytes % (auto) 0.4 %; Lymphocytes # (auto) 0.81 K/uL (1.2-3.4); Lymphocytes % (auto) 8.8 %; Mean Corpuscular Hemoglobin 27.5 pg (25-34); Mean Corpuscular Hgb Conc 31.8 g/dL (32-36); Mean Corpuscular Volume 86.7 fL (80-100); Mean Platelet Volume 10.8 fL (7.4-10.4); Monocytes % (auto) 14.1 %; Neutrophils # (auto) 6.99 K/uL (1.4-6.5); Neutrophils % (auto) 75.5 %; Platelet Count 315 K/uL (130-400); RDW Coefficient of Variation 15.1 % (11.5-14.5); RDW Standard Deviation 47.7 fL (36.4-46.3); Red Blood Count 4.14 M/uL (4.2-5.4); White Blood Count 9.25 K/uL (4.8-10.8)
--- NOTE | 2020-07-26 07:35 | XRay Report ---
XR chest 1V portable CLINICAL HISTORY: f/u COMPARISON STUDY: Chest radiograph July 25, 2020. FINDINGS: Tip of endotracheal tube is 2.6 cm above the [place]. Right internal jugular central line re lv in place. Tip of nasogastric tube is below the lower aspect of this image but at least within t he body of the stomach. There is no pneumothorax. No definite pleural effusion is noted. Interstitial thickening and extensive bilateral opacities persist. Cardiomegaly is unchanged. IMPRESSION: 1. Tip of endotracheal tube 2.6 cm above the [place]. 2. Persistent extensive bilateral airspace opacities which favor pneumonia. Pulmonary edema could arthur ear similar but is considered less likely. ACT 112: Negative or not required by law. Electronically signed by: Nas Shaffer M.D. 07/26/2020 7:34 AM
[2020-07-26 07:46] LABS: BUN Creatinine Ratio 65.1 (10-20); Calcium 9.2 mg/dl (8.5-10.1); Creatinine Clr Calc Pharmacy 103.2 ml/min; Est GFR (African American) 118.5; Est GFR (Non-African American) 102.2; Potassium 4.1 mmol/L (3.5-5.1)
[2020-07-26 07:47] LABS: Phosphorus 2.9 mg/dl (2.5-4.9)
[2020-07-26] MEDS: ICU ELECTROLYTE REPLACEMENT PROTOCOL SCH ×2 (08:01→17:03)
[2020-07-26] MEDS ORDERED: Nursing to Pharmacy Communication SCH (08:15)
[2020-07-26] MEDS: ENOXAPARIN INJ 40 MG/0.4 ML SYR SQ SCH ×2 (08:29→21:00)
[2020-07-26] MEDS: dexAMETHasone 6 MG in SYRINGE 0 ML IV SCH (08:29)
[2020-07-26] MEDS: MULTI VIT W/MINERALS LIQUID 15 ML UDP NG SCH (08:29)
[2020-07-26] MEDS: FAMOTIDINE 20 MG in SYRINGE 3 ML IV SCH ×2 (08:30→20:59)
[2020-07-26] MEDS: ACETAMINOPHEN 1,000 MG/100 ML VIAL IV PRN (09:01)
[2020-07-26] MEDS: MAGNESIUM SULFATE / D5W 1 GM/100 ML BAG IV SCH ×2 (09:04→12:01)
[2020-07-26] MEDS ORDERED: FUROSEMIDE 40 MG in SYRINGE 0 ML IV ONE (09:10)
--- NOTE | 2020-07-26 11:09 | XRay Report ---
XR chest 1V portable CLINICAL HISTORY: ? ett displacement COMPARISON STUDY: Chest radiograph July 26, 2020 at 6:02 AM. FINDINGS: The tip of the endotracheal tube is 2.2 cm above the [place]. Tip of nasogastric tube is bel ow the lower aspect of this image but at least within the body of the stomach. Right internal jugular central line remains in place. There is no pneumothorax. No pleural effusion is identified. Extensiv e bilateral airspace opacities persist. IMPRESSION: 1. Tip of endotracheal tube 2.2 cm above the [place]. 2. Persistent extensive bilateral airspace opacities suggestive of pneumonia. ACT 112: Negative or not required by law. Electronically signed by: Nas Shaffer M.D. 07/26/2020 11:07 AM
--- NOTE | 2020-07-26 16:48 | Critical Care Progress Note ---
Date of Service July 26, 2020 Assessment & Plan (1) Acute respiratory failure with hypoxia: CTA 07/18/2020: Consolidative process dense bilateral lower lobes, diffuse groundglass opacities appreciated bilaterally upper and lower lobes with central scarring. Mild mediastinal lymphadenopathy. No signs of pulmonary embolus Patient had PET/CT done in October 2018 which did not show any interstitial thickening or any infiltrative changes at that time. -- VDRF Secondary to multilobar pneumonia secondary to COVID-19 in an immunosuppressed patient Continue with ventilatory support Keep RASS -1 Daily sedation holidays and SBT's Continue with lung protective ventilation High PEEP, low tidal volume to keep Plateau < 30 with permissive hypercapnea if need be. Monitor ABGs Procalcitonin has been negative x2, patient is immunosuppressed Component of pneumonitis from Velcade is also a possibility. She is already getting dexamethasone which should take care of it. Patient was prone once on 07/23/2020. Has been off Nimbex 07/23/2020 --COVID-19 Patient is on dexamethasone 6 mg, complete the course of 10 days On remdesivir, complete the course of 5 days --Smoldering multiple myeloma On lenalidomide as well as Velcade --Prophylaxis VTE: Lovenox 40 mg twice daily GI: Pantoprazole Lines: Right IJ, left radial, intubation 07/21/2020, positive Anaya Diet: Tube feeds Plan: In/out: -1239, urine output 3050 Chest x-ray still shows diffuse infiltrates bilaterally. We will try to go down on the PEEP and FiO2 gradually. Keep patient RASS -1. I gave the patient 1 dose of Lasix. Keep the patient negative balance Barbara Magana [phone] I have personally spent 40 minutes of critical care time in the direct management of this patient. This is a life/limb threatening event. This includes time spent evaluating patient, direct bedside care, chart review, placing orders, interpretation of diagnostic studies, discussion with consultants, patient, and family members, as well as other required patient management activities. This time is exclusive of all separately billable procedures, and teaching time and separate from and in addition to any other critical care service time. Please note the above document was generated using voice recognition software. It may contain grammatical, syntax or spelling errors. (2) COVID-19: (3) Multiple myeloma: Admission and Anticipated Discharge Date Admission Date: July 18, 2020 Subjective Seen and examined at bedside. No acute distress. Patient tried to take the tube out earlier today that is the reason she has been resting. She is on propofol and fentanyl. Saturating 92% on and 60% FiO2. She is RASS -1 following simple commands. Review of Systems Review of Systems: All systems reviewed & are unremarkable except as noted in Subjective Physical Exam Physical Exam: Constitutional: No acute distress HEENT: PERRLA, positive ETT Respiratory system: Decreased air entry bilaterally, positive crackles bilateral lower lobes, no wheeze, no rhonchi CVS: S1-S2 positive, no murmurs or gallops Abdomen: Soft, nontender, nondistended, positive bowel sounds x4 Extremities: +2 pulses bilaterally radialis/ dorsalis pedis, no cyanosis, no edema Neuro: Positive corneal, positive gag, positive pupillary, RASS -1 Psych: Unable to assess G/U: Positive Anaya Skin: no rashes, warm and dry Lymphatic: no cervical or axillary lymphadenopathy Results & Data Results & Data ([facility]) Vital Signs (Past 12 Hours) Vital Signs Temp Pulse Resp BP Pulse Ox 07/26/20 15:35 71 17 93 07/26/20 13:36 37.7 C H 79 90/63 L 95 07/26/20 13:06 37.7 C H 79 95/67 L 94 07/26/20 12:36 37.8 C H 83 102/70 95 07/26/20 12:18 81 19 94 07/26/20 12:06 37.8 C H 79 102/64 94 07/26/20 11:36 37.8 C H 82 105/70 92 07/26/20 11:06 37.8 C H 95 H 120/83 90 07/26/20 10:36 37.8 C H 90 114/77 90 07/26/20 10:06 37.9 C H 99 H 101/72 90 07/26/20 09:36 38.0 C H 98 H 108/64 91 07/26/20 09:06 38.0 C H 108 H 109/74 92 07/26/20 08:36 37.8 C H 108 H 118/75 91 07/26/20 08:16 110 H 22 92 07/26/20 08:06 37.7 C H 107 H 113/74 91 12/26/20 07:36 37.6 C H 106 H 116/75 91 07/26/20 07:06 37.5 C 113 H 123/89 90 07/26/20 06:44 07/26/20 06:44 Coding Level of Care Code Critical Care 1st 30-74 mins Diagnoses Acute respiratory failure with hypoxia J96.01 COVID-19 U07.1 Multiple myeloma C90.00 Time Spent (min) 40
--- NOTE | 2020-07-26 17:13 | Hospitalist Progress Note ---
Date of Service July 26, 2020 Assessment & Plan (1) COVID-19: Dexamethasone 6mg IV daily initiated 07/18/20 5 days remdesivir, completed 07/22 defered convalescent plasma as she presented day 6 of illness Isolation precautions with airborne and droplet patient now intubated and on mechanical ventilation,AC 16 360 peep 10 FiO2 40 management per strawhat sizer SBT and sedation holidays, working toward extubation (2) Acute respiratory failure with hypoxia: Tachypneic and hypoxic on presentation CT chest negative for PE required high flow nasal canula for two days rapidly deteriorated morning of 07/21,intubated in the evening on 07/21, placed prone 07/23 but has not needed proned since that time now stable supine, paralytics off, management per strawhat sizer to eventually wean ventilator breathing trials and sedation holidays (3) Chronic GERD: Switch omeprazole for pantoprazole as per hospital formulary. (4) Multiple myeloma: Discussed with Dr Conner. Will initially hold Revlimid per his advice he will follow up with patient in the clinic (5) DVT prophylaxis: Lovenox 40mg SQ BID (6) Hypokalemia: ICU electrolyte replacement protocol Admission and Anticipated Discharge Date Admission Date: July 18, 2020 Subjective pt is sedate and ventilated Review of Systems Review of Systems: Unobtainable due to endotracheal tube Physical Exam Physical Exam: The patient appeared critically ill Vital signs as documented. Lungs are diminished throughout and decreased at bases Cardiac exam, Rhythm is regular.. No murmurs, rubs or gallops. Abdominal exam reveals normal bowel sounds, soft Extremities are nonedematous and both pedal pulses are present Neurologic exam is sedate although stopping meds for sedation Results & Data Results & Data ([facility]) Vital Signs (Past 12 Hours) Vital Signs Temp Pulse Resp BP Pulse Ox 07/26/20 15:35 71 17 93 07/26/20 13:36 99.9 F H 79 90/63 L 95 07/26/20 13:06 99.9 F H 79 95/67 L 94 07/26/20 12:36 100.0 F H 83 102/70 95 07/26/20 12:18 81 19 94 07/26/20 12:06 100.0 F H 79 102/64 94 07/26/20 11:36 100.0 F H 82 105/70 92 07/26/20 11:06 100.0 F H 95 H 120/83 90 07/26/20 10:36 100.0 F H 90 114/77 90 07/26/20 10:06 100.2 F H 99 H 101/72 90 07/26/20 09:36 100.4 F H 98 H 108/64 91 07/26/20 09:06 100.4 F H 108 H 109/74 92 07/26/20 08:36 100.0 F H 108 H 118/75 91 07/26/20 08:16 110 H 22 92 07/26/20 08:06 99.9 F H 107 H 113/74 91 07/26/20 07:36 99.7 F H 106 H 116/75 91 07/26/20 07:06 99.5 F 113 H 123/89 90 PG Care Time/CCT Total # of Minutes Spent Total Time Spent with Patient: Total time spent is greater than 50% in coordination of care (as documented) at patient's floor/unit and/or counseling patient: Coding Level of Care Code 46043 Subseq Hosp Care Lvl 3 Diagnoses COVID-19 U07.1 Acute respiratory failure with hypoxia J96.01 Chronic GERD K21.9 Multiple myeloma C90.00 DVT prophylaxis Z29.9 Hypokalemia E87.6
[2020-07-26] MEDS: NOREPINEPHRINE/D5W 8 MG/508 ML BAG IV SCH (20:59)
[2020-07-26] MEDS ORDERED: FUROSEMIDE 20 MG in SYRINGE 0 ML IV ONE (21:30)
[2020-07-27] MEDS: PEPTAMEN INTENSE VHP 1.0 CAL 1,000 ML BAG OG SCH (03:47)
[2020-07-27] MEDS: fentaNYL DRIP 1,250 MCG/250 ML BAG IV SCH (03:47)
[2020-07-27] MEDS: propofoL 1,000 MG/100 ML VIAL IV SCH ×2 (03:47→15:38)
[2020-07-27 05:12] LABS: iSTAT Art Bld Gas pCO2 Correct 50 mmHg (35-46); iSTAT Art Bld Gas pH Corrected 7.467 (7.35-7.45); iSTAT Arterial Blood Gas HCO3 36 meg/L (19-24); iSTAT Arterial Blood Gas pCO2 48 mmHg (35-46); iSTAT Arterial Blood Gas pH 7.48 (7.35-7.45); iSTAT Arterial Blood Gas pO2 61 mmHg (80-95); iSTAT Arterial Blood Gas pO2 C 64; iSTAT Carbon Dioxide 37 mmol/L (24-31); iSTAT FiO2 40 %; iSTAT Hematocrit 35 % (37-47); iSTAT Hemoglobin 11.9 g/dl (12.0-16.0); iSTAT Potassium 3.8 mmol/L (3.3-5.0); iSTAT Site Art Line; iSTAT Sodium 136 mmol/L (135-144)
[2020-07-27 06:31] LABS: Basophils # (auto) 0.01 K/uL (0-0.2); Basophils % (auto) 0.1 %; Eosinophils # (auto) 0.05 K/uL (0-0.5); Eosinophils % (auto) 0.5 %; Hematocrit (blood only) 35.2 % (37-47); Hemoglobin 11.1 g/dL (12.0-16.0); Immature Granulocytes # (auto) 0.04 K/uL (0.00-0.02); Immature Granulocytes % (auto) 0.4 %; Lymphocytes # (auto) 1.67 K/uL (1.2-3.4); Lymphocytes % (auto) 16.8 %; Mean Corpuscular Hemoglobin 27.3 pg (25-34); Mean Corpuscular Hgb Conc 31.5 g/dL (32-36); Mean Corpuscular Volume 86.7 fL (80-100); Mean Platelet Volume 10.9 fL (7.4-10.4); Monocytes # (auto) 0.61 K/uL (0.11-0.59); Monocytes % (auto) 6.1 %; Neutrophils # (auto) 7.58 K/uL (1.4-6.5); Neutrophils % (auto) 76.1 %; Platelet Count 356 K/uL (130-400); RDW Coefficient of Variation 15.2 % (11.5-14.5); RDW Standard Deviation 47.8 fL (36.4-46.3); Red Blood Count 4.06 M/uL (4.2-5.4); White Blood Count 9.96 K/uL (4.8-10.8)
[2020-07-27 07:10] LABS: BUN Creatinine Ratio 78.3 (10-20); Calcium 9.1 mg/dl (8.5-10.1); Creatinine Clr Calc Pharmacy 99.1 ml/min; Est GFR (Non-African American) 100.9; Magnesium 2.3 mg/dl (1.8-2.4); Potassium 3.7 mmol/L (3.5-5.1)
[2020-07-27 07:15] LABS: Phosphorus 3.7 mg/dl (2.5-4.9)
[2020-07-27] MEDS: ICU ELECTROLYTE REPLACEMENT PROTOCOL SCH ×2 (07:23→17:13)
--- NOTE | 2020-07-27 07:24 | Hospitalist Progress Note ---
Date of Service July 27, 2020 Assessment & Plan (1) COVID-19: remains ventilated with low grade temp Dexamethasone 6mg IV daily initiated 07/18/20 5 days remdesivir, completed 07/22 defered convalescent plasma as she presented day 6 of illness Isolation precautions with airborne and droplet patient now extubated and BiPap 07/06 back up rate of 14, Fio2 50% management per haulage boss (2) Acute respiratory failure with hypoxia: Tachypneic and hypoxic on presentation CT chest negative for PE required high flow nasal canula for two days rapidly deteriorated morning of 07/21,intubated in the evening on 07/21, placed prone 07/23 but has not needed proned since that time now stable supine, paralytics off, management per haulage boss to Bipap trial today pulmonary medicine recommends lasix to keep dry (3) Chronic GERD: Switch omeprazole for pantoprazole as per hospital formulary. (4) Multiple myeloma: Discussed with Dr Conner. Will initially hold Revlimid per his advice he will follow up with patient in the clinic (5) DVT prophylaxis: Lovenox 40mg SQ BID (6) Hypokalemia: ICU electrolyte replacement protocol Admission and Anticipated Discharge Date Admission Date: July 18, 2020 Subjective pt is sedate and ventilated Review of Systems Review of Systems: Unobtainable due to cognitive status Physical Exam Physical Exam: The patient appeared critically ill Vital signs as documented. Lungs are diminished throughout and decreased at bases Cardiac exam, Rhythm is regular.. No murmurs, rubs or gallops. Abdominal exam reveals normal bowel sounds, soft Extremities are nonedematous and both pedal pulses are present Neurologic exam is sedate although stopping meds for sedation Results & Data Results & Data ([facility] Vital Signs (Past 12 Hours) Vital Signs Temp Pulse Resp BP Pulse Ox 07/27/20 05:00 99.9 F H 90 92 07/27/20 04:57 87 17 92 07/27/20 04:08 100.0 F H 91 H 114/79 92 07/27/20 04:00 100.0 F H 89 131/69 92 07/27/20 03:00 100.0 F H 104 H 93 07/27/20 02:00 100.2 F H 96 H 91 07/27/20 01:08 100.2 F H 99 H 117/80 92 07/27/20 00:08 100.0 F H 106 H 129/83 93 07/27/20 00:00 87 125/56 L 07/26/20 23:53 103 H 18 92 07/26/20 23:08 100.2 F H 97 H 120/78 91 07/26/20 22:08 100.2 F H 94 H 115/81 90 07/26/20 21:46 100.0 F H 104 H 139/101 H 91 07/26/20 21:15 95 H 19 90 07/26/20 21:07 100.0 F H 99 H 139/101 H 90 07/26/20 20:37 100.0 F H 94 H 122/81 91 07/26/20 20:07 100.0 F H 89 126/80 90 07/26/20 20:00 90 144/71 H 07/26/20 19:37 99.9 F H 83 112/76 89 L PG Care Time/CCT Total # of Minutes Spent Total Time Spent with Patient: Total time spent is greater than 50% in coordination of care (as documented) at patient's floor/unit and/or counseling patient: Coding Level of Care Code 24483 Subseq Hosp Care Lvl 2 Diagnoses COVID-19 U07.1 Acute respiratory failure with hypoxia J96.01 Chronic GERD K21.9 Multiple myeloma C90.00 DVT prophylaxis Z29.9 Hypokalemia E87.6
--- NOTE | 2020-07-27 08:08 | XRay Report ---
XR chest 1V portable CLINICAL HISTORY: Respiratory failure COMPARISON STUDY: 07/26/2020 FINDINGS: There is a nasogastric tube 22 mm above the [place]. There is a nasogastric tube which passe s into the stomach. There is a right internal jugular central venous catheter with its tip at or just distal to the atriocaval junction. There are persistent multifocal bilateral pulmonary airspace opac ities. No pneumothorax is visualized. Trace pleural effusions are suspected.[ IMPRESSION: 1. Persistent extensive bilateral pulmonary airspace opacities. ACT 112: Negative or not required by law. Electronically signed by: Gary Almeida M.D. 07/27/2020 8:07 AM
[2020-07-27] MEDS ORDERED: FUROSEMIDE 20 MG in SYRINGE 0 ML IV ONE (08:15)
[2020-07-27] MEDS: POTASSIUM CHLORIDE 20 MEQ/15 ML UDC PO SCH ×2 (08:28→11:58)
[2020-07-27] MEDS: FAMOTIDINE 20 MG in SYRINGE 3 ML IV SCH ×2 (08:29→21:06)
[2020-07-27] MEDS: ENOXAPARIN INJ 40 MG/0.4 ML SYR SQ SCH ×2 (08:29→21:05)
[2020-07-27] MEDS: MULTI VIT W/MINERALS LIQUID 15 ML UDP NG SCH (08:29)
[2020-07-27] MEDS: dexAMETHasone 6 MG in SYRINGE 0 ML IV SCH (08:29)
--- NOTE | 2020-07-27 13:59 | Critical Care Progress Note ---
Date of Service July 27, 2020 Assessment & Plan (1) Acute respiratory failure with hypoxia: CTA 07/18/2020: Consolidative process dense bilateral lower lobes, diffuse groundglass opacities appreciated bilaterally upper and lower lobes with central scarring. Mild mediastinal lymphadenopathy. No signs of pulmonary embolus Patient had PET/CT done in October 2018 which did not show any interstitial thickening or any infiltrative changes at that time. -- VDRF Secondary to multilobar pneumonia secondary to COVID-19 in an immunosuppressed patient Continue with ventilatory support Keep RASS -1 Daily sedation holidays and SBT's Continue with lung protective ventilation High PEEP, low tidal volume to keep Plateau < 30 with permissive hypercapnea if need be. Monitor ABGs Procalcitonin has been negative x2, patient is immunosuppressed Component of pneumonitis from Velcade is also a possibility. She is already getting dexamethasone which should take care of it. Patient was prone once on 07/23/2020. 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 Went down to PEEP of 6. If the patient is doing well and people sick later today I will put the patient on pressure support to see how she is doing and give a trial of extubation. I gave the patient 1 dose of Lasix. Keep the patient negative balance Give 1 more dose of Lasix today. Barbara Magana [phone] I have personally spent 38 minutes of critical care time in the direct management of this patient. This is a life/limb threatening event. This includes time spent evaluating patient, direct bedside care, chart review, placing orders, interpretation of diagnostic studies, discussion with consultants, patient, and family members, as well as other required patient management activities. This time is exclusive of all separately billable procedures, and teaching time and separate from and in addition to any other critical care service time. Please note the above document was generated using voice recognition software. It may contain grammatical, syntax or spelling errors. (2) COVID-19: (3) Multiple myeloma: Admission and Anticipated Discharge Date Admission Date: July 18, 2020 Subjective Patient seen and examined at bedside. No acute distress, no adverse events overnight. Patient was on propofol and fentanyl at the time of examination. She is RASS -1 and following simple commands. Asking to take the tube out. She has been having low-grade fever. Review of Systems Review of Systems: All systems reviewed & are unremarkable except as noted in Subjective and Unobtainable due to endotracheal tube Physical Exam Physical Exam: Constitutional: No acute distress HEENT: PERRLA, positive ETT Respiratory system: Decreased air entry bilaterally, positive crackles bilateral lower lobes, no wheeze, no rhonchi CVS: S1-S2 positive, no murmurs or gallops Abdomen: Soft, nontender, nondistended, positive bowel sounds x4 Extremities: +2 pulses bilaterally radialis/ dorsalis pedis, no cyanosis, no edema Neuro: Positive corneal, positive gag, positive pupillary, RASS -1 Psych: Unable to assess G/U: Positive Anaya Skin: no rashes, warm and dry Lymphatic: no cervical or axillary lymphadenopathy Results & Data Results & Data ([facility]) Vital Signs (Past 12 Hours) Vital Signs Temp Pulse Resp BP Pulse Ox 07/27/20 13:18 94 H 19 95 07/27/20 11:32 100 H 20 93 07/27/20 09:08 37.7 C H 94 H 121/85 92 07/27/20 08:08 37.8 C H 89 119/80 91 07/27/20 07:24 96 H 17 91 07/27/20 07:08 37.7 C H 88 124/70 92 07/27/20 05:00 37.7 C H 90 92 07/27/20 04:57 87 17 92 07/27/20 04:08 37.8 C H 91 H 114/79 92 07/27/20 04:00 37.8 C H 89 131/69 92 07/27/20 03:00 37.8 C H 104 H 93 07/27/20 02:00 37.9 C H 96 H 91 07/27/20 05:50 07/27/20 05:50 Coding Level of Care Code Critical Care 1st 30-74 mins Diagnoses Acute respiratory failure with hypoxia J96.01 COVID-19 U07.1 Multiple myeloma C90.00 Time Spent (min) 38
[2020-07-27] MEDS: NOREPINEPHRINE/D5W 8 MG/508 ML BAG IV SCH (19:03)
[2020-07-27] MEDS ORDERED: STAT IV Infusion **Titration per Protocol STA (22:00)
[2020-07-27] MEDS ORDERED: ALBUT/IPRATROP 3MG/0.5MG NEB 3 ML VIAL NEB STA (22:02)
[2020-07-27] MEDS: DEXMEDETOMIDINE HCL 200 MCG in SODIUM CHLORIDE 0.9% 48 ML IV SCH (22:19)
[2020-07-27] MEDS ORDERED: RACEPINEPHRINE 2.25% NEBU SOLN 0.5 ML VIAL NEB ONE ×2 (22:27)
--- NOTE | 2020-07-27 23:26 | Communication Note ---
Date of Service: July 27, 2020 2230: Received message from RN regarding patient's increased BP and HR as well as concerns for wheezing. The patient was noted to have issues with anxiety while intubated/sedated last evening and would develop tachycardia/HTN when agitated. Orders were placed for Precedex as well as for duoneb. I did present to bedside shortly after placing orders. Duoneb was in process. Patient w/o significant wheeze, but stridorous cough was noted on occasion. Patient continued to saturate well on minimal BiPAP settings, however she did appear agitated and was pulling at her mask on occasion. RN instructed to titrate up precedex and orders were placed for Racemic Epi neb to be given when agitation/HR improved. Once affects of precedex were appreciated and patient was more comfortable, racemic epi neb was provided. Patient did seem to show some improvement w/ less frequent stridorous cough and less lower lung resonance appreciated. HR and BP as well as agitation improved and the patient appeared much more comfortable. Orders placed for PRN Racemic epi nebs. Precedex to continue overnight. Patient saturated in the low to mid 90s throughout entire events on minimal BiPAP settings. Will obtain AM ABG and will add soft tissue neck film as well. I have personally spent 45 minutes of critical care time in the direct management of this patient. This is a life/limb threatening event. This includes time spent evaluating patient, direct bedside care, chart review, placing orders, interpretation of diagnostic studies, discussion with consultants, patie nt, and family members, as well as other required patient management activities. This time is exclusive of all separately billable procedures, and teaching time and separate from and in addition to any other critical care service time. Coding Level of Care Code Critical Care tyree brockt'l 30 min Time Spent (min) 45
[2020-07-28] MEDS ORDERED: RACEPINEPHRINE 2.25% NEBU SOLN 0.5 ML VIAL NEB ONE (01:00)
[2020-07-28] MEDS: DEXMEDETOMIDINE HCL 200 MCG in SODIUM CHLORIDE 0.9% 48 ML IV SCH (02:09)
[2020-07-28] MEDS ORDERED: RACEPINEPHRINE 2.25% NEBU SOLN 0.5 ML VIAL NEB STA (03:21)
[2020-07-28] MEDS ORDERED: ALBUT/IPRATROP 3MG/0.5MG NEB 3 ML VIAL NEB PRN (03:21)
[2020-07-28 03:48] LABS: iSTAT Art Bld Gas pCO2 Correct 56 mmHg (35-46); iSTAT Art Bld Gas pH Corrected 7.431 (7.35-7.45); iSTAT Arterial Blood Gas HCO3 37 meg/L (19-24); iSTAT Arterial Blood Gas pCO2 56 mmHg (35-46); iSTAT Arterial Blood Gas pH 7.43 (7.35-7.45); iSTAT Arterial Blood Gas pO2 87 mmHg (80-95); iSTAT Arterial Blood Gas pO2 C 87; iSTAT Carbon Dioxide 39 mmol/L (24-31); iSTAT FiO2 50 %; iSTAT Hematocrit 38 % (37-47); iSTAT Hemoglobin 12.9 g/dl (12.0-16.0); iSTAT Potassium 4.2 mmol/L (3.3-5.0); iSTAT Site Art Line; iSTAT Sodium 138 mmol/L (135-144)
[2020-07-28] MEDS ORDERED: DEXMEDETOMIDINE HCL 400 MCG in 0.9 % SODIUM CHLORIDE 96 ML IV SCH (05:15)
[2020-07-28 07:24] LABS: Eosinophils # (auto) 0.01 K/uL (0-0.5); Eosinophils % (auto) 0.1 %; Hematocrit (blood only) 36.5 % (37-47); Hemoglobin 11.8 g/dL (12.0-16.0); Immature Granulocytes # (auto) 0.05 K/uL (0.00-0.02); Immature Granulocytes % (auto) 0.6 %; Lymphocytes # (auto) 0.99 K/uL (1.2-3.4); Mean Corpuscular Hemoglobin 28.1 pg (25-34); Mean Corpuscular Hgb Conc 32.3 g/dL (32-36); Mean Corpuscular Volume 86.9 fL (80-100); Mean Platelet Volume 10.6 fL (7.4-10.4); Monocytes # (auto) 0.05 K/uL (0.11-0.59); Monocytes % (auto) 0.6 %; Neutrophils # (auto) 7.91 K/uL (1.4-6.5); Neutrophils % (auto) 87.7 %; Platelet Count 389 K/uL (130-400); RDW Coefficient of Variation 15.2 % (11.5-14.5); RDW Standard Deviation 48.4 fL (36.4-46.3); White Blood Count 9.01 K/uL (4.8-10.8)
--- NOTE | 2020-07-28 07:26 | Hospitalist Progress Note ---
Date of Service July 28, 2020 Assessment & Plan (1) COVID-19: extubated 07/27 pt declined with increased work of breathing and hypoxia Dexamethasone 6mg IV daily initiated 07/18/20 5 days remdesivir, completed 07/22 defered convalescent plasma as she presented day 6 of illness Isolation precautions with airborne and droplet Greatly appreciate Dr Donald help wtih family, unfortuantely will proceed to comfort care and morphine gtt for air hunger is expected shortly (2) Acute respiratory failure with hypoxia: Tachypneic and hypoxic on presentation CT chest negative for PE required high flow nasal canula for two days rapidly deteriorated morning of 07/21,intubated in the evening on 07/21, (3) Chronic GERD: (4) Multiple myeloma: Discussed with Dr Conner. Will initially hold Revlimid per his advice (5) DVT prophylaxis: (6) Hypokalemia: ICU electrolyte replacement protocol Admission and Anticipated Discharge Date Admission Date: July 18, 2020 Subjective pt was extubated 07/27 and placed on bipap, did have stridor and wheezing with delerium, was started on precedex with improvement of delerium and given bronchodialators for wheezing. pt became adamant about not wanting to be re intubated and does not want resusitated Dr Donald did have Zoom call with the and will now transition to comfort care. Morphine drip started Review of Systems Review of Systems: Unobtainable due to cognitive status and Unobtainable due to reduced consciousness Physical Exam Physical Exam: The patient appeared critically ill Vital signs as documented. Lungs are diminished throughout and decreased at bases pt with tachypneic and stridorous cough Cardiac exam, tachycardic . No murmurs, rubs or gallops. Abdominal exam reveals normal bowel sounds, soft Extremities are nonedematous and both pedal pulses are present Neurologic exam uncomfortable with respiratory distress Results & Data Results & Data ([facility]) Vital Signs (Past 12 Hours) Vital Signs Temp Pulse Pulse Resp BP Pulse Ox 07/28/20 06:45 99.5 F 78 97 07/28/20 06:30 99.5 F 73 98 07/28/20 06:15 99.5 F 82 95 07/28/20 06:08 99.3 F 81 110/68 95 07/28/20 05:08 99.1 F 90 117/80 94 07/28/20 04:08 99.0 F 102 H 140/91 97 07/28/20 04:00 82 124/65 07/28/20 03:48 90 18 96 07/28/20 03:08 99.3 F 84 128/80 95 07/28/20 02:08 99.5 F 88 126/84 97 07/28/20 01:37 93 H 18 96 07/28/20 01:09 99.7 F H 90 95 07/28/20 01:08 99.7 F H 88 105/73 95 07/28/20 00:30 99.9 F H 93 H 101/72 94 07/28/20 00:08 99.9 F H 110 H 111/76 94 07/28/20 00:00 88 112/64 07/27/20 23:54 97 H 18 94 07/27/20 23:08 99.3 F 112 H 175/114 H 96 07/27/20 23:07 115 H 115 H 26 H 93 07/27/20 21:58 99.1 F 105 H 194/126 H 95 07/27/20 20:09 99.3 F 85 94 07/27/20 20:08 99.3 F 89 152/103 H 92 07/27/20 20:00 102 H 185/96 H PG Care Time/CCT Total # of Minutes Spent Total Time Spent with Patient: Total time spent is greater than 50% in coordination of care (as documented) at patient's floor/unit and/or counseling patient: Coding Level of Care Code 95975 Subseq Hosp Care Lvl 3 Diagnoses COVID-19 U07.1 Acute respiratory failure with hypoxia J96.01 Chronic GERD K21.9 Multiple myeloma C90.00 DVT prophylaxis Z29.9 Hypokalemia E87.6
[2020-07-28 08:06] LABS: BUN Creatinine Ratio 62.6 (10-20); Calcium 9.7 mg/dl (8.5-10.1); Creatinine Clr Calc Pharmacy 96.9 ml/min; Est GFR (Non-African American) 100.9; Magnesium 2.2 mg/dl (1.8-2.4); Phosphorus 4.2 mg/dl (2.5-4.9); Potassium 4.3 mmol/L (3.5-5.1)
[2020-07-28] MEDS: FAMOTIDINE 20 MG in SYRINGE 3 ML IV SCH (08:06)
[2020-07-28] MEDS: ENOXAPARIN INJ 40 MG/0.4 ML SYR SQ SCH (08:11)
[2020-07-28] MEDS: ICU ELECTROLYTE REPLACEMENT PROTOCOL SCH (08:27)
--- NOTE | 2020-07-28 08:49 | XRay Report ---
XR chest 1V portable HISTORY: Respiratory failure. Follow-up. COMPARISON: Chest 07/27/2020. FINDINGS: Patchy bilateral airspace opacities have slightly improved. Endotracheal tube and nasogastr ic tube is been removed. Right jugular central venous catheter terminates in the distal SVC. No pneum othorax. No pleural effusions. The heart remains mildly enlarged. IMPRESSION: 1. Slight improved aeration within the bilateral airspace opacities consistent with a viral pneumonia . 2. Endotracheal tube and nasogastric tube have been removed. ACT 112: Negative or not required by law. Electronically signed by: Alexander Gold M.D. 07/28/2020 8:47 AM
--- NOTE | 2020-07-28 08:59 | XRay Report ---
XR soft tissue neck HISTORY: 65 years-old Female stridor acute stridor. COMPARISON: Chest radiograph of same day TECHNIQUE: Single AP view of the soft tissues of the neck FINDINGS: Limited exam without a lateral projection. No opaque foreign body or definite abnormal soft tissue sw elling. Right IJ catheter is partially imaged. Bilateral pulmonary opacities. IMPRESSION: Limited exam without a lateral projection. No soft tissue neck abnormality identified. ACT 112: Negative or not required by law. The above report was generated using voice recognition software. It may contain grammatical, syntax o r spelling errors. Electronically signed by: Thomas Perez M.D. 07/28/2020 8:58 AM
[2020-07-28] MEDS: MULTI VIT W/MINERALS LIQUID 15 ML UDP NG SCH (09:58)
[2020-07-28] MEDS ORDERED: POLYETHYLENE (MIRALAX) 17 GM PACK PO SCH (10:45)
--- NOTE | 2020-07-28 13:23 | Critical Care Progress Note ---
Date of Service July 28, 2020 Assessment & Plan (1) Acute respiratory failure with hypoxia: Patient was extubated on 07/27. She was intubated for 6 days. She is doing relatively well on high flow nasal cannula today. She received racemic epinephrine overnight due to expiratory stridor. She still has very mild expiratory stridor. She is currently on a low-dose Precedex drip. That is being weaned off. We will do a speech therapy evaluation tomorrow. Continue Lovenox 40 mg twice daily. Patient has completed a course of Decadron and remdesivir. She is stable to be downgraded from the ICU to telemetry. Pulmonary will continue to follow. Physical therapy would be beneficial as she certainly has risk factors for critical illness neuromyopathy. CRITICAL CARE TIME - I have personally spent 33 minutes of critical care time in the direct management of this patient. This is a life/limb threatening event. This includes time spent evaluating patient, direct bedside care, chart review, placing orders, interpretation of diagnostic studies, discussion with consultants, patie nt, and family members, as well as other required patient management activities. This time is exclusive of all separately billable procedures, and teaching time and separate from and in addition to any other critical care service time. (2) COVID-19: (3) Multiple myeloma: Admission and Anticipated Discharge Date Admission Date: July 18, 2020 Subjective Patient seen and examined this morning. She has some mild expiratory stridor. She says that she feels "bored". She denies any chest pain or shortness of breath at this time. She does very clearly have resting tachypnea. She is requiring 30 L of oxygen at FiO2 35%. Review of Systems 2 Review of Systems: All systems reviewed & are unremarkable except as noted in HPI & below Physical Exam Constitutional: + acute distress and + ill appearing Eyes: PERRL, conjunctivae normal, anicteric sclerae ENMT: external ear and nose normal, oropharynx normal Neck: normal visual inspection Respiratory: + labored breathing and + tachypneic Cardiovascular: RRR, no murmur, no edema Gastrointestinal (Abdomen): normal bowel sounds, soft, nontender, no hepatosplenomegaly Musculoskeletal: no cyanosis or clubbing, extremities motor strength 5/5 Skin: no rashes, warm and dry Neurologic: PERRL, EOMI, accommodation nl, no face palsy, no dysarthria Psychiatric: A+Ox3, euthymic affect Results & Data Results & Data ([facility]) Vital Signs (Past 12 Hours) Vital Signs Temp Pulse Pulse Pulse Resp BP Pulse Ox 07/28/20 11:32 88 21 92 07/28/20 11:08 99.1 F 88 152/92 H 93 07/28/20 10:08 99.0 F 79 139/90 92 07/28/20 09:08 99.1 F 82 141/94 H 93 07/28/20 08:08 99.0 F 75 122/78 93 07/28/20 08:00 80 07/28/20 07:37 82 17 95 07/28/20 07:08 99.5 F 76 127/84 98 07/28/20 06:45 99.5 F 78 97 07/28/20 06:30 99.5 F 73 98 07/28/20 06:15 99.5 F 82 95 07/28/20 06:08 99.3 F 81 110/68 95 07/28/20 05:08 99.1 F 90 117/80 94 07/28/20 04:08 99.0 F 102 H 140/91 97 07/28/20 04:00 82 124/65 07/28/20 03:48 90 18 96 07/28/20 03:08 99.3 F 84 128/80 95 07/28/20 02:08 99.5 F 88 126/84 97 07/28/20 01:37 93 H 18 96 I reviewed the vital signs, labs and imaging Coding Level of Care Code Critical Care 1st 30-74 mins Diagnoses Acute respiratory failure with hypoxia J96.01 COVID-19 U07.1 Multiple myeloma C90.00 Time Spent (min) 33
[2020-07-28] MEDS ORDERED: MoRPHine SULFATE 4 MG/ML 1 ML CARP\\VIAL ONE (15:23)
[2020-07-28] MEDS ORDERED: GLYCOPYRROLATE 0.2 MG/ML VIAL IV PRN (15:30)
[2020-07-28] MEDS ORDERED: LORazepam 0.5 MG TAB PO PRN (15:30)
[2020-07-28] MEDS ORDERED: ATROPINE SULFATE 1% OP SOLN 2 ML BTL SL PRN (15:30)
[2020-07-28] MEDS ORDERED: LORazepam 0.5 MG/1 ML VIAL IV PRN (15:30)
--- NOTE | 2020-07-28 15:37 | Communication Note ---
Date of Service: July 28, 2020 I had a lengthy discussion with the patient, the patient's (Chino Francois) and the patient's bedside nurse (Shannan Gregorio) regarding the overall co ndition of the patient and goals of care. The patient was very adamant about wanting to be a DO NOT INTUBATE at this time given the trauma related to the initial intubation. She has ongoing expiratory stridor and severe accessory muscle use requiring escalating amounts of high flow oxygen. She is clearly very uncomfortable. We had the patient's join us via video chat. He was able to talk to his via video and see her condition himself. He was very tearful and agreed that a comfort care route would be the best approach given her current suffering. We are going to give her a 3 mg bolus of IV morphine and start her on a morphine drip. We are going to discontinue all unnecessary laboratory data, vital sign checks and interventions at this time. We are going to focus primarily on comfort. Palliative care consultation was placed and the case was discussed with the palliative care nurse practitioner. I also discussed the case with the patient's hospitalist, Dr. Hodge. He is in agreement with focusing on comfort. Coding Level of Care Code Critical Care 1st 30-74 mins Time Spent (min) 30
[2020-07-28] MEDS ORDERED: MoRPHine SULFATE 4 MG/ML 1 ML CARP\\VIAL IV STA (15:55)
[2020-07-28] MEDS ORDERED: CHECK SCOPOLAMINE PATCH PLACEMENT SCH (16:00)
[2020-07-28] MEDS ORDERED: MoRPHine SULF/NSS 250 MG/250 ML BTL IV SCH (16:00)
[2020-07-28] MEDS ORDERED: SCOPOLAMINE 1.5 MG TDSY TD SCH (16:00)
[2020-07-28] MEDS: MoRPHine SULFATE 2 MG/ML CARP IV PRN ×2 (17:26→19:19)
[2020-07-28] MEDS ORDERED: fentaNYL citrate 100 MCG/2 ML VIAL ONE (17:43)
[2020-07-28] MEDS ORDERED: fentaNYL citrate 100 MCG/2 ML VIAL IV STA (17:55)
[2020-07-28] MEDS ORDERED: STAT IV Infusion **Titration per Protocol STA (18:08)
[2020-07-28] MEDS ORDERED: fentaNYL DRIP 1,250 MCG/250 ML BAG IV SCH (18:15)
--- NOTE | 2020-07-31 09:21 | Discharge Summary ---
Date of Service July 31, 2020 Admission HPI Per Admitting Provider Promise Jimenez is a 65-year-old female who presents to the ER with shortness of breath, nasal congestion, sinus pressure (now improving), sore throat, nonproductive cough, poor appetite, fever and fatigue. Symptoms started 6 days ago and progressively worse since then. She was tested for SARS-CoV-2 3 days ago although this is yet to be resulted. She denies any diarrhea, nausea, vomiting, abdominal pain, headache. She is currently immunocompromised with treatment for smoldering multiple myeloma with Velcade, dexamethasone and Revlimid. Discussed with her over the phone. He reports having COPD and has a pulse ox at home. He had been trying to encourage his to come to the ER for some time but she has been quite stoic. However today noted her pulse ox at 45% therefore just called for an ambulance. In the ER SARS-COV2 PCR was positive and CXR concerning for bilateral pulmonary airspace opacities consistent with multifocal pneumonia. She was started on high flow oxygen with FiO2 80% maintaining O2 sats around 90%. Given NSS 1L bolus, cefepime to cover for bacterial pneumonia and Dexamethasone as treatment for COVID-19 pneumonia. She was referred to medicine for admission and ongoing management of COVID-19 pneumonia and acute hypoxic respiratory failure. Principal Diagnosis Pt 07/28/20 at 1824, from pneumonia secondary to covid Discharge Exam pt was pronounced by nursing staff Discharge Data Allergies Allergy/AdvReac Type Severity Reaction Status Date / Time diazepam [From Valium] AdvReac Severe Nausea Unverified 07/18/20 15:06 tramadol AdvReac Severe Nausea Unverified 07/18/20 15:06 codeine AdvReac Unknown NAUSEA AND Verified 07/18/20 15:06 VOMITING propoxyphene AdvReac Unknown NAUSEA AND Verified 07/18/20 15:06 VOMITING Sulfa (Sulfonamide AdvReac Unknown NAUSEA AND Verified 07/18/20 15:06 Antibiotics) VOMITING Consultations 07/18/20 16:17 ED Decision to Admit Stat 07/18/20 20:34 Consult Pulmonology Routine 07/19/20 07:14 Consult Hematology Routine 07/21/20 07:41 Consult Sleeve Wheel Maker Routine 07/28/20 15:30 Consult Case Management - Discharge Planning Routine Consult Palliative Care Routine Ordered Studies 07/18/20 17:47 CT angio chest PE protocol Urgent 07/21/20 17:49 US point of care ultrasound Urgent Hospital Course (1) : pt was pronounced at 07/28/20 at 1824 (2) COVID-19: extubated 07/27 pt declined with increased work of breathing and hypoxia Dexamethasone 6mg IV daily initiated 07/18/20 5 days remdesivir, completed 07/22 defered convalescent plasma as she presented day 6 of illness Isolation precautions with airborne and droplet Greatly appreciate Dr Donald help wtih family, did proceed to comfort care and morphine gtt for air hunger is expected shortly (3) Acute respiratory failure with hypoxia: Tachypneic and hypoxic on presentation CT chest negative for PE required high flow nasal canula for two days rapidly deteriorated morning of 07/21,intubated in the evening on 07/21, (4) Chronic GERD: (5) Multiple myeloma: Total Time Total Time Spent Total Time Spent (In Minutes): less than 30 minutes Discharge Plan Discharge Items Patient Disposition: Discharge Diagnosis: COVID 19 pneumonia Addtl Attending Provider Instructions: Patient passed earlier this evening Coding Level of Care Code D/C Day Management <30 mins Diagnoses R99 COVID-19 U07.1 Acute respiratory failure with hypoxia J96.01 Chronic GERD K21.9 Multiple myeloma C90.00
== END 2020-07-28 22:13 | disposition expired | DRG 207 ==
LOC: ED 14:05 → 2S 17:46 → SUATTDRO 17:46 → 2S 19:05 → 2E 07-21 10:35